=== PATIENT | female | born 1950 | race Caucasian/White ===

== ENCOUNTER 2017-01-29 12:51 | Emergency (ER) | payer OTHER ==
[~2017-01-29 12:51] MED LIST: LEVO88TA2 PO; METO25TA3 PO; SIMV40TA PO; WARF-21 PO; WARF-23 PO
[2017-01-29 12:53] VITALS: BP 188/92; PULSE 89; RESP 15; TEMP 98.2; O2SAT 98
--- NOTE | 2017-01-29 13:24 | PD ---
HPI Chief Complaint: GI Complaint Time Seen by Provider: 13:14 Travel History International Travel<30 days: No Contact w/Intl Traveler<30days: No Traveled to known affect area: No History of Present Illness HPI This patient complains of persistent diarrhea. She's had it for 2 weeks. She denies fever or rectal bleeding. No vomiting or abdominal pain. Severity is moderate. No presyncopal symptoms. No alleviating factors. Denies out of country travel or ill contacts PFSH Past Medical History Cardiac Catheterization: Yes (x2) Cardiovascular Problems: Yes ([place] 2011) High Cholesterol: Yes (controlled with statins) Diabetes: No Hypertension: Yes Myocardial Infarction: Yes (2011) Thyroid Disease: Yes (hypo) Past Surgical History Cardiac Surgery: Yes (varicous vein ) Coronary Artery Bypass Graft: No Other Surgery: Yes (sinus, hemmrroids) Family History Family Myocardial Infarction: Yes Social History Alcohol Use: No Tobacco Use: No Substance Use: No Allergies-Medications (Allergen,Severity, Reaction): Coded Allergies: Acyclovir (Verified Allergy, Unknown, 01/29/17) Sulfa (Verified Allergy, Unknown, 01/29/17) Reported Meds & Prescriptions Reported Meds & Active Scripts Active Reported Warfarin 5 Mg Tab 5 Mg PO SUTUWEFRSA Take 1 tablet (5mg) on Monday,Monday,Monday,Monday and Monday Warfarin 7.5 Mg Tab 7.5 Mg PO MOTH Take 1 tablet (7.5mg) on Monday and Metoprolol Tartrate 25 Mg Tab 25 Mg PO BID Simvastatin 40 Mg Tab 40 Mg PO HS Levothyroxine (Levothyroxine Sodium) 88 Mcg Tab 88 Mcg PO DAILY Review of Systems General / Constitutional: No: Fever Eyes: No: Visual changes HENT: No: Headaches Cardiovascular: No: Chest Pain or Discomfort Respiratory: No: Shortness of Breath Gastrointestinal: Positive: Diarrhea, No: Abdominal Pain Genitourinary: No: Dysuria Musculoskeletal: No: Pain Skin: No Rash Neurologic: No: Weakness Psychiatric: No: Depression Endocrine: No: Polydipsia Hematologic/Lymphatic: No: Easy Bruising Physical Exam Narrative GENERAL: Well-nourished, well-developed patient in no apparent distress. SKIN: Focused skin assessment reveals no rash and nodules. Skin is Warm and dry. HEAD: Atraumatic. Normocephalic. EYES: Pupils equal and round. No scleral icterus. No injection or drainage. ENT: No nasal bleeding or discharge. Mucous membranes pink and moist. NECK: Trachea midline. No JVD. CARDIOVASCULAR: Regular rate and rhythm. No murmur appreciated. RESPIRATORY: No accessory muscle use. Clear to auscultation. Breath sounds equal bilaterally. GASTROINTESTINAL: Abdomen soft, non-tender, nondistended. Hepatic and splenic margins not palpable. MUSCULOSKELETAL: No obvious deformities. No clubbing. No cyanosis. No edema. NEUROLOGICAL: Awake and alert. No obvious cranial nerve deficits. Motor grossly within normal limits. Normal speech. PSYCHIATRIC: Appropriate mood and affect; insight and judgment normal. Data Data Last Documented VS Vital Signs Date Time Temp Pulse Resp B/P Pulse Ox O2 Delivery O2 Flow Rate FiO2 01/29/17 12:53 98.2 89 15 188/92 98 Orders Iv Access Insert/Monitor (01/29/17 13:21) Complete Blood Count With Diff (01/29/17 13:21) Basic Metabolic Panel (Bmp) (01/29/17 13:21) Labs Laboratory Tests Test 01/29/17 13:33 White Blood Count 4.4 TH/MM3 Red Blood Count 4.79 MIL/MM3 Hemoglobin 14.1 GM/DL Hematocrit 42.5 % Mean Corpuscular Volume 88.6 FL Mean Corpuscular Hemoglobin 29.4 PG Mean Corpuscular Hemoglobin 33.2 % Concent Red Cell Distribution Width 14.5 % Platelet Count 207 TH/MM3 Mean Platelet Volume 8.8 FL Neutrophils (%) (Auto) 72.9 % Lymphocytes (%) (Auto) 19.3 % Monocytes (%) (Auto) 7.0 % Eosinophils (%) (Auto) 0.6 % Basophils (%) (Auto) 0.2 % Neutrophils # (Auto) 3.2 TH/MM3 Lymphocytes # (Auto) 0.8 TH/MM3 Monocytes # (Auto) 0.3 TH/MM3 Eosinophils # (Auto) 0.0 TH/MM3 Basophils # (Auto) 0.0 TH/MM3 CBC Comment DIFF FINAL Differential Comment Sodium Level 138 MEQ/L Potassium Level 3.9 MEQ/L Chloride Level 103 MEQ/L Carbon Dioxide Level 29.5 MEQ/L Anion Gap 6 MEQ/L Blood Urea Nitrogen 14 MG/DL Creatinine 0.78 MG/DL Estimat Glomerular Filtration 74 ML/MIN Rate Random Glucose 95 MG/DL Calcium Level 8.8 MG/DL MDM Medical Decision Making Medical Screen Exam Complete: Yes Emergency Medical Condition: Yes Medical Record Reviewed: Yes Differential Diagnosis Colitis, food poisoning, malabsorption Narrative Course I have reviewed the patient's electronic medical record. IV placed CBC is normal Metabolic profile is normal Abdomen is soft and benign and nontender and she looks euvolemic Follow-up with primary care for 2 weeks of diarrhea Diagnosis Primary Impression: Diarrhea Qualified Code: R19.7 - Diarrhea, unspecified type Additional Instructions: The patient was advised to follow up with their physician and return if they worsen. Med/Other Pt SpecificInfo: Other Disposition: 01 DISCHARGE HOME Condition: Stable Antolin Blank MD Jan 29, 2017 13:24
[2017-01-29 13:59] LABS: AUTOMATED NEUTROPHIL # 3.2 TH/MM3 (1.8-7.7); BASOPHIL % 0.2 % (0.0-2.0); EOSINOPHIL % 0.6 % (0.0-4.0); HEMATOCRIT 42.5 % (35.0-46.0); HEMO FLAGS DIFF FINAL; LYMPH % 19.3 % (9.0-44.0); LYMPHOCYTE # 0.8 TH/MM3 (1.0-4.8); MEAN CELL VOLUME 88.6 FL (80.0-100.0); MEAN CORPUSCULAR HEMOGLOBIN 29.4 PG (27.0-34.0); MEAN CORPUSCULAR HGB CONC 33.2 % (32.0-36.0); NEUT % 72.9 % (16.0-70.0); PLATELET COUNT 207 TH/MM3 (150-450); RED BLOOD COUNT 4.79 MIL/MM3 (4.00-5.30); RED CELL DISTRIBUTION WIDTH 14.5 % (11.6-17.2); WHITE BLOOD COUNT 4.4 TH/MM3 (4.0-11.0)
[2017-01-29 14:18] LABS: BICARBONATE 29.5 MEQ/L (21.0-32.0); POTASSIUM 3.9 MEQ/L (3.5-5.1)
[2017-01-29 14:58] VITALS: BP 135/82
== END 2017-01-29 15:05 | disposition home or self-care (01) ==
LOC: NEPD 12:51
DX: R19.7 Diarrhea, unspecified (principal); I10 Essential (primary) hypertension; I25.2 Old myocardial infarction; E03.9 Hypothyroidism, unspecified; E78.00 Pure hypercholesterolemia, unspecified; Z79.01 Long term (current) use of anticoagulants; Z79.899 Other long term (current) drug therapy
CPT/HCPCS: 80048; 85025; 99283

== ENCOUNTER 2017-02-07 11:36 | Inpatient (IN) | payer OTHER, MEDICARE ==
[~2017-02-07] VITALS: Ht 165.1 cm; Wt 67.3 kg
[2017-02-07 11:39] VITALS: BP 158/89; PULSE 104; RESP 16; TEMP 98.3; O2SAT 96
[2017-02-07 13:09] VITALS: RESP 18; O2SAT 98
--- NOTE | 2017-02-07 13:15 | PD ---
HPI Chief Complaint: Abnormal Results Time Seen by Provider: 12:55 Travel History International Travel<30 days: No Contact w/Intl Traveler<30days: No Traveled to known affect area: No History of Present Illness HPI 66-year-old female presents with an abnormal INR level in the sevens. She states that she has been having abdominal pain and diarrhea over the past couple of weeks. She got referred to a GI specialist who placed her on Flagyl. She states she doesn't know why she is on that and denies having anything other testing other than blood work and an x-ray. She states that she's also been having intermittent bleeding in her urine. She denies any specific other complaints. Quality is high. Severity is 7 range. PFSH Past Medical History Hx Anticoagulant Therapy: Yes Cardiac Catheterization: Yes (x2) Cardiovascular Problems: Yes High Cholesterol: Yes (controlled with statins) Diabetes: No Hypertension: Yes Myocardial Infarction: Yes (2011) Thyroid Disease: Yes (hypo) ?: Not Past Surgical History Cardiac Surgery: Yes (varicous vein ) Coronary Artery Bypass Graft: No Other Surgery: Yes (sinus, hemorrhoid) Family History Family Myocardial Infarction: Yes Social History Alcohol Use: No Tobacco Use: No Substance Use: No Allergies-Medications (Allergen,Severity, Reaction): Coded Allergies: Acyclovir (Verified Allergy, Unknown, 01/29/17) Sulfa (Verified Allergy, Unknown, 01/29/17) Reported Meds & Prescriptions Reported Meds & Active Scripts Active Reported Flagyl (Metronidazole) 500 Mg Tab 500 Mg PO TID Warfarin 5 Mg Tab 5 Mg PO SUTUWEFRSA Take 1 tablet (5mg) on Monday,Monday,Monday,Monday and Monday Warfarin 7.5 Mg Tab 7.5 Mg PO MOTH Take 1 tablet (7.5mg) on Monday and Metoprolol Tartrate 25 Mg Tab 25 Mg PO BID Simvastatin 40 Mg Tab 40 Mg PO HS Levothyroxine (Levothyroxine Sodium) 88 Mcg Tab 88 Mcg PO DAILY Review of Systems Except as stated in HPI: all other systems reviewed are Neg Physical Exam Narrative GENERAL: Well-nourished, well-developed patient. SKIN: Warm and dry. HEAD: Normocephalic and atraumatic. EYES: No injection or drainage. ENT: No nasal drainage noted. NECK: Supple, trachea midline. CARDIOVASCULAR: Regular rate and rhythm RESPIRATORY: Breath sounds equal bilaterally. No accessory muscle use. GASTROINTESTINAL: Abdomen soft, diffusely tender, nondistended. EXTREMITIES: No edema. RECTAL EXAM: Performed with finisher polisher and after permission. No external hemorrhoid or fissure, stool is brown, non-bloody. NEUROLOGICAL: Awake and alert. Moves extremities. Normal speech. Data Data Last Documented VS Vital Signs Date Time Temp Pulse Resp B/P Pulse Ox O2 Delivery O2 Flow Rate FiO2 02/07/17 13:09 92 18 97 Room Air 02/07/17 11:39 98.3 158/89 Orders Magnesium (Mg) (02/07/17 13:00) Phosphorus (Po4) (02/07/17 13:00) Complete Blood Count With Diff (02/07/17 13:00) Basic Metabolic Panel (Bmp) (02/07/17 13:00) Act Partial Throm Time (Ptt) (02/07/17 13:00) Prothrombin Time / Inr (Pt) (02/07/17 13:00) Iv Access Insert/Monitor (02/07/17 13:00) Ecg Monitoring (02/07/17 13:00) Oximetry (02/07/17 13:00) Urinalysis - C+S If Indicated (02/07/17 13:07) Ct Abd/Pel W Iv Contrast(Rout) (02/07/17 ) Phytonadione Inj (Vitamin K Inj) (02/07/17 14:30) Iohexol 350 Inj (Omnipaque 350 Inj) (02/07/17 15:35) Admit Order (Ed Use Only) (02/07/17 15:39) Labs Laboratory Tests Test 02/07/17 02/07/17 13:19 13:53 White Blood Count 5.3 TH/MM3 Red Blood Count 4.53 MIL/MM3 Hemoglobin 13.2 GM/DL Hematocrit 40.4 % Mean Corpuscular Volume 89.2 FL Mean Corpuscular Hemoglobin 29.1 PG Mean Corpuscular Hemoglobin 32.6 % Concent Red Cell Distribution Width 14.5 % Platelet Count 209 TH/MM3 Mean Platelet Volume 8.2 FL Neutrophils (%) (Auto) 81.0 % Lymphocytes (%) (Auto) 9.5 % Monocytes (%) (Auto) 8.3 % Eosinophils (%) (Auto) 1.0 % Basophils (%) (Auto) 0.2 % Neutrophils # (Auto) 4.3 TH/MM3 Lymphocytes # (Auto) 0.5 TH/MM3 Monocytes # (Auto) 0.4 TH/MM3 Eosinophils # (Auto) 0.1 TH/MM3 Basophils # (Auto) 0.0 TH/MM3 CBC Comment DIFF FINAL Differential Comment Prothrombin Time 151.8 SEC Prothromb Time International 12.3 RATIO Ratio Activated Partial 92.7 SEC Thromboplast Time Sodium Level 138 MEQ/L Potassium Level 3.9 MEQ/L Chloride Level 101 MEQ/L Carbon Dioxide Level 32.1 MEQ/L Anion Gap 5 MEQ/L Blood Urea Nitrogen 10 MG/DL Creatinine 0.70 MG/DL Estimat Glomerular Filtration 83 ML/MIN Rate Random Glucose 98 MG/DL Calcium Level 8.5 MG/DL Phosphorus Level 2.7 MG/DL Magnesium Level 2.1 MG/DL Urine Color YELLOW Urine Turbidity CLEAR Urine pH 6.0 Urine Specific [place] 1.010 Urine Protein NEG mg/dL Urine Glucose (UA) NEG mg/dL Urine Ketones NEG mg/dL Urine Occult Blood MOD Urine Nitrite NEG Urine Bilirubin NEG Urine Urobilinogen LESS THAN 2.0 MG/DL Urine Leukocyte Esterase MOD Urine RBC 34 /hpf Urine WBC 3 /hpf Urine Squamous Epithelial 1 /hpf Cells Urine Transitional Epithelial <1 /hpf Cells Urine Mucus FEW /lpf Microscopic Urinalysis Comment CULT NOT INDICATED MDM Medical Decision Making Medical Screen Exam Complete: Yes Emergency Medical Condition: Yes Medical Record Reviewed: Yes (past history confirmed) Interpretation(s) CBC & BMP Diagram 02/07/17 13:19 Last 24 hours Impressions Abdomen/Pelvis CT 02/07/17 0000 Signed Impressions: Service Date/Time: Tuesday, February 07, 2017 15:20 - CONCLUSION: 1. There is prominence of the right renal pelvis and possible mild hydronephrosis with prominent soft tissue density at the UPJ, underlying neoplastic process should be excluded. Ureteroscopy recommended. 2. Prominent anterior bladder wall thickening measuring 9 mm. Cystoscopy and biopsy recommended. 3. Urologic consultation recommended. 4. Minimal ascites. 5. Borderline prominence of the left ovary. Pelvic sonogram recommended. Leif Landa MD ua with blood without infection Differential Diagnosis Diverticulitis, anemia, hypercoagulable, hypokalemia, renal failure Narrative Course Will check blood work, urinalysis, CT scan abdominal pelvis and reevaluate, Flagyl is likely contributing to hypercoagulable state. No emergent bleeding now will hold reversal until confirm level and if bleeding found on workup Patient's INR on repeat is 12.3. Patient with blood and urine. Will dose with vitamin K 10 mg subcutaneous and await CT Patient denies prior urology follow-up and recently got diagnosed with the blood in her urine at the beginning of December. She has not had a CAT scan of her abdomen. She did have an ultrasound that showed that her left ovary was okay but they could not visualize her right ovary she states. She has never followed with urologist. She is updated about results and agrees to admission to the hospital. [facility] Point of Care Internal Pos. & Neg. Controls: Passed Fecal Specimen Occult Blood: Negative Physician Communication Physician Communication dr salas agrees to admit dr salas updated about ct and will order urology consult Diagnosis Primary Impression: Supratherapeutic INR Additional Impressions: Diarrhea Qualified Code: R19.7 - Diarrhea, unspecified type Abdominal pain Qualified Code: R10.84 - Generalized abdominal pain Bladder wall thickening Hematuria Qualified Code: R31.9 - Hematuria, unspecified type Admitting Information Admitting Physician Requests: Admit Joya Coats MD Feb 07, 2017 13:15
[2017-02-07 13:43] LABS: AUTOMATED NEUTROPHIL # 4.3 TH/MM3 (1.8-7.7); BASOPHIL % 0.2 % (0.0-2.0); EOSINOPHIL # 0.1 TH/MM3 (0-0.4); HEMATOCRIT 40.4 % (35.0-46.0); LYMPH % 9.5 % (9.0-44.0); LYMPHOCYTE # 0.5 TH/MM3 (1.0-4.8); MEAN CELL VOLUME 89.2 FL (80.0-100.0); MEAN CORPUSCULAR HEMOGLOBIN 29.1 PG (27.0-34.0); MEAN CORPUSCULAR HGB CONC 32.6 % (32.0-36.0); MONO % 8.3 % (0.0-8.0); PLATELET COUNT 209 TH/MM3 (150-450); RED BLOOD COUNT 4.53 MIL/MM3 (4.00-5.30); RED CELL DISTRIBUTION WIDTH 14.5 % (11.6-17.2); WHITE BLOOD COUNT 5.3 TH/MM3 (4.0-11.0)
[2017-02-07 13:44] LABS: HEMO FLAGS DIFF FINAL
[2017-02-07 14:03] LABS: BICARBONATE 32.1 MEQ/L (21.0-32.0); MAGNESIUM 2.1 MG/DL (1.5-2.5); POTASSIUM 3.9 MEQ/L (3.5-5.1)
[2017-02-07 14:19] LABS: PROTHROMBIN TIME - PATIENT 151.8 SEC (9.8-11.6)
[2017-02-07 14:21] LABS: APTT (PATIENT) 92.7 SEC (24.3-30.1)
[2017-02-07 14:21] LABS: BLOOD, URINE MOD (NEG); COMMENT (UR) CULT NOT INDICATED; CULTURE IF INDICATED CULT NOT INDICATED; GLUCOSE,URINE NEG (NEG); KETONE, URINE NEG (NEG); MUCUS URINE FEW /lpf (OCC); NITRITE,URINE NEG (NEG); SQUAMOUS EPITHELIAL CELL URINE 1 /hpf (0-5); TRANSITIONAL EPI CELLS, URINE <1 /hpf; URINE COLOR YELLOW (YELLW/STRAW)
[2017-02-07 14:22] LABS: INTERNATIONAL NORMALIZED RATIO 12.3 RATIO
[2017-02-07] MEDS ORDERED: PHYTONADIONE 10 MG/ML VIAL SQ ONE (14:30)
[2017-02-07] MEDS ORDERED: METR-1 PO (14:47)
[2017-02-07] MEDS ORDERED: IOHEXOL 350 MG/ML 10 ML VIAL (for RAD DIAG) IV ONE (15:35)
--- NOTE | 2017-02-07 15:42 | RADRPT ---
EXAM DATE/TIME: 02/07/2017 15:20 [facility] COMPARISON: No previous studies available for comparison. INDICATIONS : Diffuse abdomen pain for two days. IV CONTRAST: 87 cc Omnipaque 350 (iohexol) IV ORAL CONTRAST: Prescribed oral contrast ingested. RADIATION DOSE: 9.96 CTDIvol (mGy) MEDICAL HISTORY : Cardiovascular disease. Myocardial infarction. SURGICAL HISTORY : Coronary artery stent. ENCOUNTER: Initial ACUITY: 2 days PAIN SCALE: 6/10 LOCATION: Bilateral upper quadrant TECHNIQUE: Volumetric scanning of the abdomen and pelvis was performed. Using automated exposure control and ad justment of the mA and/or kV according to patient size, radiation dose was kept as low as reasonably achievable to obtain optimal diagnostic quality images. DICOM format image data is available electro nically for review and comparison. FINDINGS: LOWER LUNGS: The visualized lower lungs are clear. LIVER: Homogeneous density without lesion. There is no dilation of the biliary tree. There are calcified g allstones. Small amount of ascites. SPLEEN: Normal size without lesion. PANCREAS: Within normal limits. KIDNEYS: Normal in size and shape. There is no mass, stone or hydronephrosis on the left. There is prominent right renal pelvis and some minimal soft tissue at the UPJ. ADRENAL GLANDS: Within normal limits. VASCULAR: There is no aortic aneurysm. BOWEL/MESENTERY: The stomach, small bowel, and colon demonstrate no acute abnormality. There is no free intraperitone al air or fluid. ABDOMINAL WALL: Within normal limits. RETROPERITONEUM: There is no lymphadenopathy. BLADDER: Wall thickening along the anterior bladder measuring up to 9 mm.. REPRODUCTIVE: Left ovary borderline prominent measuring up to 3 cm.. INGUINAL: There is no lymphadenopathy or hernia. MUSCULOSKELETAL: Degenerative changes. CONCLUSION: 1. There is prominence of the right renal pelvis and possible mild hydronephrosis with prominent soft tissue density at the UPJ, underlying neoplastic process should be excluded. Ureteroscopy recommende d. 2. Prominent anterior bladder wall thickening measuring 9 mm. Cystoscopy and biopsy recommended. 3. Urologic consultation recommended. 4. Minimal ascites. 5. Borderline prominence of the left ovary. Pelvic sonogram recommended. Leif Landa MD on February 07, 2017 at 15:36 Board Certified Radiologist. This report was verified electronically.
[2017-02-07 16:40] VITALS: BP 129/83; PULSE 78; RESP 18; O2SAT 96
[2017-02-07] MEDS ORDERED: ACETAMINOPHEN 325 MG TAB PO PRN (17:00)
[2017-02-07] MEDS ORDERED: BISACODYL 10 MG SUPP RECTAL PRN (17:00)
[2017-02-07] MEDS ORDERED: SODIUM CHLORIDE 0.9% FLUSH 10 ML FLUSH IV FLUSH PRN (17:00)
[2017-02-07] MEDS ORDERED: LACTULOSE SYRUP 20 GM/30 ML CUP PO PRN (17:00)
[2017-02-07] MEDS ORDERED: SENNOSIDES 8.6 MG TAB PO PRN (17:00)
[2017-02-07] MEDS ORDERED: NALOXONE HCL 0.4 MG/ML AMP IV PRN (17:00)
[2017-02-07] MEDS ORDERED: MAGNESIUM HYDROXIDE SUSP 30 ML CUP PO PRN (17:00)
--- NOTE | 2017-02-07 17:21 | HHI.HP ---
HPI Service [facility] Hospitalists Primary Care Physician Moiz Pyle MD Admission Diagnosis supratherapeutic INR, abdominal pain Diagnoses: Chief Complaint: Supratherapeutic INR Abdominal pain Diarrhea Travel History International Travel<30 Days: No Contact w/Intl Traveler <30 Da: No Traveled to Known Affected Are: No History of Present Illness This is a 66-year-old female with a past medical history significant for coronary artery disease status post previous KS in 2011 with attempted but unsuccessful stent placement currently on Coumadin, hypertension, dyslipidemia and hypothyroidism who presents to [facility] ED after being told to come in by her PCP for supratherapeutic INR of 7. Patient also reports 3 week history of abdominal pain and ongoing diarrhea consisting of 10-15+ pudding consistency stools daily. Patient describes her abdominal pain as sharp and located in both lower quadrants and worsened with lying supine so she has taken to sleeping in the recliner. She denies any dark/bloody or mucoid stools. Patient states she was seen by GI specialist 7 days ago and started on Flagyl empirically for possible C. difficile infection and/or Giardia. She denies any stool testing or imaging studies done. Patient denies any improvement while on Flagyl. Her last colonoscopy was in March of last year and she had a small polypectomy. Patient reports that when she is up moving around she has frequent episodes of diarrhea every 15 minutes and has begun wearing a brief. She completed a course of nitrofurantoin yesterday for urinary tract infection. She denies any urinary difficulties, dysuria or hematuria presently. She denies any bleeding episodes. Patient reports poor appetite and states that she 's lost 8 pounds over the past week. She denies any fever, chills, dizziness, headache, shortness of breath or chest pain. In the ED, CT of abdomen and pelvis was obtained showing prominence of the right renal pelvis and possible mild hydronephrosis with prominent soft tissue density at the UPJ with possible underlying neoplastic process. Prominent anterior bladder wall thickening of 9 mm and borderline prominence of the left ovary. She has a supratherapeutic INR of 12.3. Review of Systems Except as stated in HPI: all other systems reviewed are Neg Past Family Social History Past Medical History Coronary artery disease History of previous KS in 2012 Hypertension Dyslipidemia Hypothyroidism Past Surgical History Varicose vein surgery Hemorrhoid surgery Sinus surgery Reported Medications Flagyl (Metronidazole) 500 Mg Tab 500 Mg PO TID Warfarin 5 Mg Tab 5 Mg PO SUTUWEFRSA Take 1 tablet (5mg) on Monday,Monday,Monday,Monday and Monday Warfarin 7.5 Mg Tab 7.5 Mg PO MOTH Take 1 tablet (7.5mg) on Monday and Metoprolol Tartrate 25 Mg Tab 25 Mg PO BID Simvastatin 40 Mg Tab 40 Mg PO HS Levothyroxine (Levothyroxine Sodium) 88 Mcg Tab 88 Mcg PO DAILY Allergies: Coded Allergies: Acyclovir (Verified Allergy, Unknown, 01/29/17) Sulfa (Verified Allergy, Unknown, 01/29/17) Active Ordered Medications Current Medications Medications (Trade) Dose Ordered Sig/Trina Route Start Time Stop Time Status Last Admin (NS Flush) 2 ml UNSCH PRN IV FLUSH 02/07/17 17:00 UNV (NS Flush) 2 ml BID IV FLUSH 02/07/17 21:00 UNV (Tylenol) 650 mg Q4H PRN PO 02/07/17 17:00 UNV (Zofran Inj) 4 mg Q6H PRN IVP 02/07/17 17:00 UNV (Narcan Inj) 0.4 mg UNSCH PRN IV 02/07/17 17:00 UNV (Milk Of Magnesia Liq) 30 ml Q12H PRN PO 02/07/17 17:00 UNV (Senokot) 17.2 mg Q12H PRN PO 02/07/17 17:00 UNV (Dulcolax Supp) 10 mg DAILY PRN RECTAL 02/07/17 17:00 UNV (Lactulose Liq) 30 ml DAILY PRN PO 02/07/17 17:00 UNV Family History Mother, coronary artery disease status post open heart surgery 2 Father, lung cancer Social History Patient has a history of tobacco use from the age of 8 until she was 39 smoking 20 cigarettes a day. Patient denies any alcohol consumption. Patient denies any illicit drug use. Patient is and lives alone. Physical Exam Vital Signs Vital Signs Date Time Temp Pulse Resp B/P Pulse Ox O2 Delivery O2 Flow Rate FiO2 02/07/17 13:09 92 18 97 Room Air 02/07/17 13:09 18 98 Room Air 02/07/17 11:39 98.3 104 16 158/89 96 Room Air Physical Exam GENERAL: This is a well-nourished, well-developed patient, in no apparent distress. Awake and alert. Appears comfortable at present. SKIN: No rashes, ecchymoses or lesions. Cool and dry. HEAD: Atraumatic. Normocephalic. No temporal or scalp tenderness. EYES: Pupils equal round and reactive. Extraocular motions intact. No scleral icterus. No injection or drainage. ENT: Nose without bleeding or purulent drainage. Throat without erythema, tonsillar hypertrophy or exudate. Uvula midline. Airway patent. NECK: Trachea midline. No JVD or lymphadenopathy. Supple, nontender, no meningeal signs. CARDIOVASCULAR: Tachycardic without murmurs, gallops, or rubs. RESPIRATORY: Clear to auscultation. Breath sounds equal bilaterally. No wheezes , rales, or rhonchi. GASTROINTESTINAL: Abdomen soft, mildly distended. Diffusely tender to palpation with stethoscope. (+)BS. No hepato-splenomegaly, or palpable masses. (+) Voluntary guarding. MUSCULOSKELETAL: Extremities without clubbing, cyanosis, or edema. No joint tenderness, effusion, or edema noted. No calf tenderness. NEUROLOGICAL: Awake and alert. Able to move all extremities. No focal neurologic findings appreciated. Normal speech. Laboratory Laboratory Tests Test 02/07/17 02/07/17 13:19 13:53 White Blood Count 5.3 Red Blood Count 4.53 Hemoglobin 13.2 Hematocrit 40.4 Mean Corpuscular Volume 89.2 Mean Corpuscular Hemoglobin 29.1 Mean Corpuscular Hemoglobin 32.6 Concent Red Cell Distribution Width 14.5 Platelet Count 209 Mean Platelet Volume 8.2 Neutrophils (%) (Auto) 81.0 Lymphocytes (%) (Auto) 9.5 Monocytes (%) (Auto) 8.3 Eosinophils (%) (Auto) 1.0 Basophils (%) (Auto) 0.2 Neutrophils # (Auto) 4.3 Lymphocytes # (Auto) 0.5 Monocytes # (Auto) 0.4 Eosinophils # (Auto) 0.1 Basophils # (Auto) 0.0 CBC Comment DIFF FINAL Differential Comment Prothrombin Time 151.8 Prothromb Time International 12.3 Ratio Activated Partial 92.7 Thromboplast Time Sodium Level 138 Potassium Level 3.9 Chloride Level 101 Carbon Dioxide Level 32.1 Anion Gap 5 Blood Urea Nitrogen 10 Creatinine 0.70 Estimat Glomerular Filtration 83 Rate Random Glucose 98 Calcium Level 8.5 Phosphorus Level 2.7 Magnesium Level 2.1 Urine Color YELLOW Urine Turbidity CLEAR Urine pH 6.0 Urine Specific [place] 1.010 Urine Protein NEG Urine Glucose (UA) NEG Urine Ketones NEG Urine Occult Blood MOD Urine Nitrite NEG Urine Bilirubin NEG Urine Urobilinogen LESS THAN 2.0 Urine Leukocyte Esterase MOD Urine RBC 34 Urine WBC 3 Urine Squamous Epithelial 1 Cells Urine Transitional Epithelial <1 Cells Urine Mucus FEW Microscopic Urinalysis Comment CULT NOT INDICATED Result Diagram: 02/07/17 1319 02/07/17 1319 Imaging Last Impressions Abdomen/Pelvis CT 02/07/17 0000 Signed Impressions: Service Date/Time: Tuesday, February 07, 2017 15:20 - CONCLUSION: 1. There is prominence of the right renal pelvis and possible mild hydronephrosis with prominent soft tissue density at the UPJ, underlying neoplastic process should be excluded. Ureteroscopy recommended. 2. Prominent anterior bladder wall thickening measuring 9 mm. Cystoscopy and biopsy recommended. 3. Urologic consultation recommended. 4. Minimal ascites. 5. Borderline prominence of the left ovary. Pelvic sonogram recommended. Leif Landa MD Assessment and Plan Assessment and Plan 66-year-old female with a past medical history significant for coronary artery disease status post previous KS in 2011 with attempted but unsuccessful stent placement currently on Coumadin, hypertension, dyslipidemia and hypothyroidism who presents to [facility] ED after being told to come in by her PCP for supratherapeutic INR of 7. Patient also reports 3 week history of abdominal pain and ongoing diarrhea consisting of 10-15+ pudding consistency stools daily. Abdominal pain, bilateral lower quadrants Chronic Diarrhea/fecal incontinence Wt loss Treated empirically for the past 7 days with Flagyl without benefit - CT abd/pelvis, images personally reviewed showing prominence of the right renal pelvis and possible mild hydronephrosis with prominent soft tissue density at the UPJ, underlying neoplastic process should be excluded. Prominent anterior bladder wall thickening measuring 9 mm. Borderline prominent left ovary. - Consult GI - Hold Flagyl - Stool studies ordered - C diff ordered - Clear liquid diet - NPO after MN pending possibility of scope procedure. - pain management - Zofran prn N/V Mild hydronephrosis with prominent soft tissue density at the UPJ Prominent bladder thickening - Creatinine 0.70 GFR 83. UA with mod blood, mod leukocytes and 34 RBCs - obtain UCX - Consult urology - Renal ultrasound ordered for further evaluation - Monitor BMP Borderline prominence left ovary - Complaints of left lower quadrant pain - Pelvic ultrasound for further evaluation Supratherapeutic INR, suspect s/t Flagyl use - INR 12.3 - Patient given vitamin K in the ED - Hold warfarin - Monitor INR. A.m. labs ordered - Bedrest. Advised patient to not get out of bed without assistance. Discussed risk of bleeding with unintentional fall. Patient stated understanding. Coronary artery disease Previous KS in 2011 with attempted but unsuccessful stent placement Hypertension Dyslipidemia - Resume home metoprolol 25 mg by mouth twice a day - Hold warfarin due to supratherapeutic INR - Resume statin therapy - Clonidine prn with parameters - Monitor Hypothyroidism - Resume home levothyroxine dose 88 MCG daily - obtain TSH level DVT prophylaxis - Chemoprophylaxis contraindicated due to supratherapeutic INR Discussed with patient and Dr. Solo Physician Certification 2 Midnight Certification Type: Admission for Inpatient Services Order for Inpatient Services The services are ordered in accordance with Medicare regulations or non- Medicare payer requirements, as applicable. In the case of services not specified as inpatient-only, they are appropriately provided as inpatient services in accordance with the 2-midnight benchmark. Estimated LOS (days): 2 2 days is the estimated time the patient will need to remain in the hospital, assuming treatment plan goals are met and no additional complications. Post-Hospital Plan: Home Notes: The exam, history, and the medical decision-making described in the above note were completed with the assistance of the mid-level provider. I reviewed and agree with the findings presented. I attest that I had a [id number] encounter with the patient on the same day, and personally performed and documented my assessment and findings in the medical record. Patient complaining about abdominal pain and diarrhea for the past 3 weeks. She stated that she saw GI about a week ago and she was put on Flagyl. Patient was found to have an elevated INR. She denies any bleeding episodes. Patient stated that Flagyl did not help her at all. gen NAD CV RRR. n r/m/g Abd soft diffused TTP. No peritoneal signs. No hepatomegaly. Normal active bowel sounds. Respiratory clear to station bilaterally A/P Chronic diarrhea Supratherapeutic INR 12.3. Most likely secondary to Flagyl use. CT scan of the abdomen/pelvis reviewed. Concerning for possible bladder malignancy. Also showing mild hydronephrosis. Patient already received a dose of vitamin K. Repeat INR. Patient told that if she gets up she gets up she needs to get up with assistance due to increase risk of bleeding with fall. Will need to avoid any type of trauma falls due to increased risk of bleeding. Patient stated that she understands. Will get a renal and pelvic ultrasound. Consult GI and urologist. Sandra Castro Feb 07, 2017 17:21 Lena Solo MD Feb 07, 2017 18:23
[2017-02-07] MEDS ORDERED: SODIUM CHLORID 0.9% 500 ML INJ 500 ML IV SCH (18:15)
[2017-02-07] MEDS ORDERED: cloNIDine HCL 0.1 MG TAB PO PRN (18:15)
--- NOTE | 2017-02-07 18:58 | RADRPT ---
EXAM DATE/TIME: 02/07/2017 18:00 [facility] COMPARISON: CT ABDOMEN & PELVIS W CONTRAST, February 07, 2017, 15:20. INDICATIONS : Hydronephrosis. MEDICAL HISTORY : Cardiovascular disease. Myocardial infarction. SURGICAL HISTORY : Coronary artery stent. ENCOUNTER: Initial ACUITY: 2 days PAIN SCORE: 3/10 LOCATION: Bilateral flank MEASUREMENTS: RIGHT KIDNEY: 11.3 x 5.0 x 5.2 cm LEFT KIDNEY: 11.7 x 4.2 x 6.0 cm FINDINGS: There is a dilated renal pelvis measuring 2.9 x 3.3 x 3.1 cm. The soft tissue noted on the CT at the UPJ is not clearly seen on ultrasound. The bladder is not well-distended. Visualized portions appear within normal limits however the findings on the CT are concerning for possible mass. Left kidney is unremarkable. CONCLUSION: Dilated right renal pelvis. The UPJ soft tissue lesion and bladder abnormality noted on the CT examin ation is not clearly evaluated on ultrasound. This would be best assessed with cystoscopy and uretero scopy. Rafita Schilling MD on February 07, 2017 at 18:54 Board Certified Radiologist. This report was verified electronically.
--- NOTE | 2017-02-07 19:13 | RADRPT ---
EXAM DATE/TIME: 02/07/2017 18:09 [facility] COMPARISON: CT ABDOMEN & PELVIS W CONTRAST, February 07, 2017, 15:20. INDICATIONS : Pain. MEDICAL HISTORY : Hypothyroidism. Hypertension. Heart attack. SURGICAL HISTORY : Cardiac catheterization. ENCOUNTER: Initial ACUITY: 2 days PAIN SCORE: 3/10 LOCATION: Bilateral pelvis MEASUREMENTS: UTERUS: 6.1 x 5.2 x 3.3 cm ENDOMETRIAL STRIPE: 4 mm LEFT OVARY: 3.8 x 3.2 x 2.2 cm FINDINGS: UTERUS: The myometrium has homogeneous echotexture without mass. RIGHT OVARY: Not visualized. LEFT OVARY: Simple cyst measuring 1.8 x 1.8 cm x 2.8 cm. MISCELLANEOUS: Trace free fluid. CONCLUSION: 1. Cyst left ovary. 2. Right ovary not seen. 3. Small amount of free fluid in the pelvis. Rafita Schilling MD on February 07, 2017 at 19:10 Board Certified Radiologist. This report was verified electronically.
[2017-02-07 19:15] LABS: INDIRECT BILIRUBIN 0.2 MG/DL (0.0-0.8); TOTAL BILIRUBIN ADULT 0.3 MG/DL (0.2-1.0)
[2017-02-07 20:30] VITALS: BP 152/83; PULSE 88; RESP 20; O2SAT 96
[2017-02-07] MEDS: PRAVASTATIN SOD 80 MG TAB PO SCH (20:33)
[2017-02-07] MEDS: METOPROLOL TARTRATE 25 MG TAB PO SCH (20:33)
[2017-02-07 21:45] VITALS: BP 150/86; PULSE 89; RESP 16; TEMP 97.1; O2SAT 95
[2017-02-07] MEDS: SODIUM CHLORIDE 0.9% FLUSH 10 ML FLUSH IV FLUSH SCH (22:25)
[2017-02-07 23:09] LABS: C. DIFF EPI 027 PRESUMPTIVE NEGATIVE (NEGATIVE); C. DIFF TOXIN PCR NEGATIVE (NEGATIVE)
[2017-02-08] VITALS: BP 127/75; PULSE 86; RESP 16; TEMP 98.2; O2SAT 95
[2017-02-08 04:00] VITALS: BP 128/73; PULSE 82; RESP 16; TEMP 97; O2SAT 94
[2017-02-08] MEDS: LEVOTHYROXINE SODIUM 88 MCG TAB PO SCH (05:10)
[2017-02-08 07:38] LABS: AUTOMATED NEUTROPHIL # 3.3 TH/MM3 (1.8-7.7); BASOPHIL % 0.3 % (0.0-2.0); EOSINOPHIL # 0.1 TH/MM3 (0-0.4); EOSINOPHIL % 1.5 % (0.0-4.0); HEMO FLAGS DIFF FINAL; LYMPH % 13.9 % (9.0-44.0); LYMPHOCYTE # 0.6 TH/MM3 (1.0-4.8); MEAN CELL VOLUME 88.2 FL (80.0-100.0); MEAN CORPUSCULAR HEMOGLOBIN 29.7 PG (27.0-34.0); MEAN CORPUSCULAR HGB CONC 33.6 % (32.0-36.0); MONO % 10.5 % (0.0-8.0); NEUT % 73.8 % (16.0-70.0); PLATELET COUNT 197 TH/MM3 (150-450); RED CELL DISTRIBUTION WIDTH 14.8 % (11.6-17.2); WHITE BLOOD COUNT 4.5 TH/MM3 (4.0-11.0)
[2017-02-08 07:39] LABS: INTERNATIONAL NORMALIZED RATIO 3.5 RATIO; PROTHROMBIN TIME - PATIENT 41.2 SEC (9.8-11.6)
[2017-02-08 07:50] VITALS: BP 121/69; PULSE 82; RESP 20; TEMP 96.8; O2SAT 94
[2017-02-08 08:02] LABS: ALT (GPT) 152 U/L (10-53); ANION GAP 9 MEQ/L (5-15); AST (GOT) 118 U/L (15-37); BICARBONATE 28.2 MEQ/L (21.0-32.0); BLOOD UREA NITROGEN 8 MG/DL (7-18); CHLORIDE 104 MEQ/L (98-107); GLOMERULAR FILTRATION RATE 110 ML/MIN (>89); POTASSIUM 3.6 MEQ/L (3.5-5.1); SODIUM (NA) 141 MEQ/L (136-145)
[2017-02-08 08:04] LABS: ALKALINE PHOSPHATASE 145 U/L (45-117); TOTAL BILIRUBIN ADULT 0.4 MG/DL (0.2-1.0)
[2017-02-08] MEDS: SODIUM CHLORIDE 0.9% FLUSH 10 ML FLUSH IV FLUSH SCH ×2 (09:00→20:34)
--- NOTE | 2017-02-08 09:45 | HHI.PR ---
Subjective Remarks Patient reports persistent abdominal pain on the left lower quadrant. Denies nausea or vomiting. Feels her appetite has returned. No bowel movement or diarrhea today. Objective Vitals Vital Signs Date Time Temp Pulse Resp B/P Pulse Ox O2 Delivery O2 Flow Rate FiO2 02/08/17 07:50 96.8 82 20 121/69 94 02/08/17 04:00 97.0 82 16 128/73 94 02/08/17 00:00 98.2 86 16 127/75 95 02/07/17 21:45 97.1 89 16 150/86 95 02/07/17 20:30 88 20 152/83 96 Room Air 02/07/17 16:40 78 18 129/83 96 Room Air 02/07/17 13:09 92 18 97 Room Air 02/07/17 13:09 18 98 Room Air 02/07/17 11:39 98.3 104 16 158/89 96 Room Air I/O 02/07/17 02/07/17 02/07/17 02/08/17 02/08/17 02/08/17 06:59 14:59 22:59 06:59 14:59 22:59 Intake Total 360 ml 0 ml Output Total 300 ml 450 ml Balance 60 ml -450 ml Intake Oral 360 ml 0 ml Output Urine Total 300 ml 450 ml # Bowel Movements 2 1 Result Diagram: 02/08/17 0634 02/08/17 0636 Imaging Last Impressions Renal Ultrasound 02/07/17 0000 Signed Impressions: Service Date/Time: Tuesday, February 07, 2017 18:00 - CONCLUSION: Dilated right renal pelvis. The UPJ soft tissue lesion and bladder abnormality noted on the CT examination is not clearly evaluated on ultrasound. This would be best assessed with cystoscopy and ureteroscopy. Rafita Schilling MD Abdomen/Pelvis/Transvag US 02/07/17 0000 Signed Impressions: Service Date/Time: Tuesday, February 07, 2017 18:09 - CONCLUSION: 1. Cyst left ovary. 2. Right ovary not seen. 3. Small amount of free fluid in the pelvis. Rafita Schilling MD Abdomen/Pelvis CT 02/07/17 0000 Signed Impressions: Service Date/Time: Tuesday, February 07, 2017 15:20 - CONCLUSION: 1. There is prominence of the right renal pelvis and possible mild hydronephrosis with prominent soft tissue density at the UPJ, underlying neoplastic process should be excluded. Ureteroscopy recommended. 2. Prominent anterior bladder wall thickening measuring 9 mm. Cystoscopy and biopsy recommended. 3. Urologic consultation recommended. 4. Minimal ascites. 5. Borderline prominence of the left ovary. Pelvic sonogram recommended. Leif Landa MD Objective Remarks GENERAL: This is a well-nourished, well-developed patient, in no apparent distress. CARDIOVASCULAR: Normal rate and regular rhythm without murmurs, gallops, or rubs. RESPIRATORY: Good respiratory efforts. Breath sounds equal and clear to auscultation bilaterally. GASTROINTESTINAL: Abdomen soft, nondistended, tender to palpation over the left lower quadrant. Normal active bowel sounds MUSCULOSKELETAL: Extremities without cyanosis, or edema. NEURO: Alert & Oriented x4 to person, place, time, situation. Moves all ext x4 PSYCH: Appropriate mood and affect. A/P Problem List: (1) Diarrhea ICD Code: R19.7 Status: Acute (2) Bladder wall thickening ICD Code: N32.89 Status: Acute (3) Abdominal pain ICD Code: R10.9 Status: Acute (4) Supratherapeutic INR ICD Code: R79.1 Status: Acute (5) Hematuria ICD Code: R31.9 Status: Acute (6) Paroxysmal a-fib ICD Code: I48.0 Status: Acute (7) Hypertension ICD Code: I10 Status: Acute Assessment and Plan 66-year-old female with a past medical history significant for coronary artery disease status post previous [place] in 2011 with attempted but unsuccessful stent placement currently on Coumadin, hypertension, dyslipidemia and hypothyroidism who presents to [facility] ED after being told to come in by her PCP for supratherapeutic INR of 7. Patient also reports 3 week history of abdominal pain and ongoing diarrhea consisting of 10-15+ pudding consistency stools daily. Abdominal pain, bilateral lower quadrants Chronic Diarrhea/fecal incontinence Wt loss The patient was treated empirically with Flagyl for the past 7 days without improvement of her symptoms. - CT abd/pelvis, images personally reviewed showing prominence of the right renal pelvis and possible mild hydronephrosis with prominent soft tissue density at the UPJ, underlying neoplastic process should be excluded. Prominent anterior bladder wall thickening measuring 9 mm. Borderline prominent left ovary. -GI consulted. -Flagyl discontinued at this time. C. difficile negative. - Clear liquid diet - pain management - Zofran prn N/V Supratherapeutic INR, likely secondary to Flagyl. - INR 12.3 on presentation. Status post vitamin K. INR down to 3.5. Continue to hold Coumadin. Monitor INR. Mild hydronephrosis with prominent soft tissue density at the UPJ Prominent bladder thickening - Creatinine 0.70 GFR 83. UA with mod blood, mod leukocytes and 34 RBCs -Appreciate urology consult, patient will eventually need cystoscopy and ureteroscopy once the acute issues are resolved. This can potentially be done outpatient. - Monitor BMP Borderline prominence left ovary - Complaints of left lower quadrant pain - Pelvic ultrasound revealed a left ovarian cyst. Coronary artery disease Previous HI in 2011 with attempted but unsuccessful stent placement Hypertension Dyslipidemia - Resume home metoprolol 25 mg by mouth twice a day - Hold warfarin due to supratherapeutic INR - Resume statin therapy - Clonidine prn with parameters - Monitor Hypothyroidism - Resume home levothyroxine dose 88 MCG daily - TSH level ok DVT prophylaxis - Chemoprophylaxis contraindicated due to supratherapeutic INR Problem Qualifiers (1) Diarrhea: Qualified Code: R19.7 - Diarrhea, unspecified type (2) Abdominal pain: Qualified Code: R10.84 - Generalized abdominal pain (3) Hematuria: Qualified Code: R31.9 - Hematuria, unspecified type Charmaine Palacios MD Feb 08, 2017 09:45
[2017-02-08] MEDS: METOPROLOL TARTRATE 25 MG TAB PO SCH ×2 (10:45→20:32)
[2017-02-08 11:43] VITALS: BP 117/70; PULSE 83; RESP 20; TEMP 96.9; O2SAT 94
--- NOTE | 2017-02-08 13:39 | MB ---
cc: VERA BROWN DATE OF CONSULTATION: 02/08/2017 HISTORY OF PRESENT ILLNESS Ms. Montanez is a pleasant 66-year-old female who presents with diffuse abdominal pain and diarrhea over the last 3 weeks. She underwent a CT scan which showed some moderate right hydronephrosis with possible filling defect in the proximal ureter with bladder wall thickening. She denies any gross hematuria or recent urinary tract infections or problems with voiding. She did say that her bladder has dropped but is not having any symptomatology. She denies any right flank pain or fever or chills, nausea or vomiting. She also came in because her INR was super therapeutic at 12.3. She does take Coumadin due to her history of atrial fibrillation and had an WA approximately 10 years ago. PAST MEDICAL HISTORY 1. Coronary artery disease. 2. Hypothyroidism. 3. Hyperlipidemia. 4. Hypertension. 5. History of an WA back in 2011. PAST SURGICAL HISTORY 1. Hemorrhoid surgery. 2. Varicose vein surgery. 3. Sinus surgery. MEDICATIONS For medications please refer to the chart. ALLERGIES 1. ACYCLOVIR. 2. SULFA. FAMILY HISTORY Notable for heart disease and lung cancer. SOCIAL HISTORY She has a long history of smoking in the past. She denies any alcohol use or drug use. REVIEW OF SYSTEMS A 12-point review of systems was performed and is negative per the HPI. PHYSICAL EXAMINATION VITAL SIGNS: Temperature 96.9, heart rate 83, respiratory rate 20, blood pressure 117/70. 94% on room air. GENERAL: She is well-developed, well-nourished 66-year-old female in no acute distress. HEENT: Normocephalic, atraumatic. Pupils equal round and react to light. Extraocular movements intact. NECK: Supple. HEART: Regular rate and rhythm. LUNGS: Clear. ABDOMEN: Soft, nontender, nondistended. EXTREMITIES: No cyanosis, clubbing or edema. LABORATORY White count 4.5 hemoglobins 12.5, hematocrit 37.0, platelet count 197. Sodium 141, potassium 3.6, chloride 104, CO2 28.2, BUN 9, creatinine 0.5, glucose 87. PT 151.8, INR 12.3, PTT 92.7. Urinalysis shows 34 red cells with 3 white cells, nitrite negative, moderate leukocyte esterase. IMAGING CT scan of the abdomen and pelvis: Prominence of the right renal pelvis and possible mild right hydronephrosis with questionable soft tissue density at the area of the UPJ. Prominent anterior bladder wall thickening is also noted. ASSESSMENT A 66-year-old female admitted with abdominal pain with three weeks of diarrhea and super therapeutic on Coumadin with an INR of 12. Findings of small soft tissue density at the area of the UPJ and bladder wall thickening noted on CT scan. RECOMMENDATIONS The patient will need cystoscopy and ureteroscopy in the future but would recommend treatment and diagnosis of abdominal pain and cause of diarrhea as well as correction of INR prior to proceeding with these procedures. These procedures may also be done on an outpatient basis until her acute problem has resolved. Will follow with you. Thank you for the consult and allowing me to participate in the care of this patient. Vera RODRIGUEZ/BT /1:21 PM /1:31 PM
[2017-02-08 15:30] VITALS: BP 138/72; PULSE 81; RESP 20; TEMP 96.2; O2SAT 95
[2017-02-08] MEDS: D5-1/2 NS + KCL 10 MEQ INJ 1,000 ML IV SCH (16:00)
--- NOTE | 2017-02-08 18:25 | PD.CONS ---
GI Consult GI Consult SEE DICTATED GI CONSULT ALSO ([id number]) ASSESSMENT/PLAN: 1. Diarrhea 2. elevated LFT 3. Abd pain PLAN: 1. Chronic liver W/U (labs) 2. bowel rest 3. Questran 4, Colon/Flex sig once INR/PT improved It was a pleasure seeing Xochilt Montanez . Thank you for this consult. Entered by: Sandeep Burrell MD Feb 08, 2017 18:25
[2017-02-08 20:00] VITALS: BP 119/66; PULSE 84; RESP 17; TEMP 96.2; O2SAT 95
[2017-02-08] MEDS: CHOLESTYRAMINE 4 GM PACKET PO SCH (20:31)
[2017-02-08] MEDS: PRAVASTATIN SOD 80 MG TAB PO SCH (20:32)
[2017-02-09] VITALS: BP 132/71; PULSE 78; RESP 18; TEMP 96.1; O2SAT 94
[2017-02-09] MEDS: D5-1/2 NS + KCL 10 MEQ INJ 1,000 ML IV SCH ×2 (02:00→04:55)
[2017-02-09 04:00] VITALS: BP 143/73; PULSE 75; RESP 17; TEMP 96.6; O2SAT 96
[2017-02-09] MEDS: LEVOTHYROXINE SODIUM 88 MCG TAB PO SCH (04:55)
--- NOTE | 2017-02-09 06:28 | MB ---
cc: INNA BENJAMIN MD, SUNIL P. M.D. DATE OF CONSULTATION 02/08/2017 DATE OF 1950 REASON FOR CONSULTATION I have been asked to see the patient at the request of Dr. Benjamin for evaluation of diarrhea and abdominal pain. HISTORY The patient is a pleasant 66-year-old white female who has been followed by Dr. Rose as well as Dr. Martinez in our office. The patient has had a colonoscopy done for screening purposes in on March 2016 and was unremarkable except for diminutive hyperplastic descending colon polyp. The patient was seen by my partner, Dr. Martinez, on January 31 of this year for diarrhea - she has had up to 20 bowel movements per day. At that time she denies any antibiotic use, travel history or family history of colon cancer, colon polyps or IBD. She is on no new medication. He placed her on Flagyl and he asked to make sure her prothrombin time and INR are monitored very carefully. Apparently her INR and prothrombin time were quite supratherapeutic and she was told to go to the emergency room. In the emergency room she had diffuse abdominal colicky pain which has no rhyme or reason. The pain is now more settled in the left lower quadrant. She also continues to have multiple loose and watery bowel movement with mucus but no blood. I have been asked to evaluate this in more detail. The patient denies any type of blood per rectum or any fever or chills. There has been no dysphagia and no nausea or vomiting. PAST MEDICAL HISTORY 1. History of hyperplastic colon polyps. 2. She has had atrial fibrillation for which she takes the Coumadin. 3. She had TX in the past. 4. She has dyslipidemia. 5. Hypothyroidism. 6. Hypertension. She has recent CAT scan which showed problems in the right renal pelvis and possible mild right hydronephrosis and a questionable soft tissue density in the area of the UPJ. PAST SURGICAL HISTORY 1. Varicose vein surgeries. 2. Sinus surgery. 3. Hemorrhoid surgery. MEDICATIONS OUTPATIENT 1. Warfarin. 2. Tirosint. 3. Atorvastatin. 4. Metoprolol. 5. Flagyl. ALLERGIES SULFA. ACYCLOVIR. FAMILY HISTORY Positive for lung cancer and TX in the family. No history of colon cancer or colon polyps. SOCIAL HISTORY Does not smoke, does not drink alcohol. REVIEW OF SYSTEMS CONSTITUTIONAL: No fever. She has had some chills in the past. CARDIOPULMONARY: No chest pain, palpitations, wheezing or shortness of breath. GASTROINTESTINAL: Please see above. Otherwise unremarkable 10-point review of systems. MEDICATIONS IN THE HOSPITAL 1. Synthroid. 2. Metoprolol. 3. Pravachol. 4. Catapres. 5. [place]. 6. Tylenol. 7. Zofran. 8. Narcan. 9. Milk of Magnesia as needed. 10. Senokot as needed. 11. Dulcolax as needed. 12. Lactulose as needed. PHYSICAL EXAMINATION VITAL SIGNS: Blood pressure is 138/72, pulse rate was 80, respiratory rate 20, temperature is 96.2. GENERAL: She is an elderly white female resting comfortably at this time. She is in no acute GI distress. HEENT: Pupils are equal and reactive to light. No scleral icterus. Oropharyngeal cavity has dental caries. No tongue deviation or candidal lesion. Hearing is intact. NECK: Supple. No thyromegaly or lymphadenopathy. LUNGS: Clear to auscultation and percussion. HEART: Irregular rate and rhythm. No gross murmurs heard. ABDOMEN: Soft. Mild diffuse tenderness but no rebound tenderness, organomegaly, masses or ascites noted. Bowel sounds positive in the upper quadrants. RECTAL EXAM: Not done. EXTREMITIES: No clubbing, cyanosis or edema. SKIN: Warm and dry. NEUROLOGIC: Cranial nerves II through XII are grossly intact. She was alert and oriented x 3. DATA BASE Stool pathogens revealed that her C-difficile toxin PCR is negative. Stool for rotavirus was negative. Cryptosporidium is pending. There are rare WBCs. Giardia is pending. Stool hemoccults are negative. Cultures also pending apparently. IMAGING STUDIES The CT scan of the abdomen and pelvis done showed minimal ascites. There is some borderline prominence of the left ovary. There is a prominent anterior wall thickening. As mentioned above there is mild hydronephrosis and soft tissue density at the UPJ on the right side. Urology has seen the patient already. A pelvic ultrasound was done which revealed a cyst on the left ovary. The right ovary is not seen. There is a small amount of clear fluid in the pelvis. IMPORTANT LABORATORIES On admission a prothrombin time of 151.8; it dropped down to 42.2 today. INR 12.3, now at 3.5. PTT of 92.7. OF NOTE The liver was unremarkable on CAT scan. There was no ductal dilatation. There are small calcified gallstones. Also important laboratories revealed on admission SGOT was 173, SGPT was 185, alk phos was 181, total bilirubin of 0.3, today total bilirubin of 0.4. SGOT has dropped to 118, SGPT has dropped to 152, alk phos has dropped to 148. Total protein was 6.8, albumin of 2.4. BUN was 8, creatinine 0.55, potassium 3.6. White blood cell count 5300 yesterday, today is 4700. Hemoglobin 13.2, today is 12.5. Hematocrit of 37, MCV of 88.2, platelet count of 197,000. IMPRESSION 1. Diarrhea - She has had multiple episodes of watery diarrhea. She did not respond to Flagyl. Differentials in an elderly woman include inflammatory bowel disease as well as collagenous or microscopic colitis. She may have a viral gastroenteritis also. Could not rule out a reaction to medications , etc. 2. Abdominal pain, diffuse, colicky in nature. A little more significant in the left lower quadrant. She has no diverticula noted on the CAT scan or colonoscopy. This may be reactive to what is going on in the colon. 3. Increased LFTs. She denies any blood transfusion or exposure to hepatitis. I cannot rule out an autoimmune disease or viral process. RECOMMENDATIONS 1. Chronic liver labs - ordered. 2. Questran 4 grams b.i.d. and continue bowel rest. 3. The patient also will need a colonoscopy or at least a sigmoidoscopy once her prothrombin time and INR are better. We did talk about the indications, risks, complications, benefits and alternatives of the procedure, risk of bleeding, perforation, infection, arrhythmias and the small possibility of . She understands this and is willing to accept these risks if the procedure is needed. Sandeep Villagomez MD SP/UTE /6:19 PM /5:53 AM TRINA
[2017-02-09 07:50] VITALS: BP 132/74; PULSE 78; RESP 20; TEMP 96.8; O2SAT 94
[2017-02-09] MEDS: METOPROLOL TARTRATE 25 MG TAB PO SCH ×2 (08:19→20:36)
[2017-02-09] MEDS: CHOLESTYRAMINE 4 GM PACKET PO SCH ×2 (08:28→20:36)
[2017-02-09] MEDS: SODIUM CHLORIDE 0.9% FLUSH 10 ML FLUSH IV FLUSH SCH ×2 (08:29→20:36)
--- NOTE | 2017-02-09 08:59 | HHI.GIFU ---
GI Follow-up Note Consult Follow-up Subjective: Patient had had no diarrhea since Questran started. she does have lots of mucus per rectum Objective: PHYSICAL EXAMINATION: Vitals signs stable No fever HEENT:; no jaundice. Throat is clear. NECK: Neck is supple, no JVD, no lymphadenopathy. CHEST: Chest is clear to auscultation and percussion. ABDOMEN: Soft, nondistended, nontender; no hepatosplenomegaly; bowel sounds are present in all four quadrants. EXTREMITIES: No clubbing, cyanosis, or edema. SKIN: Normal; no rash; no jaundice. PURCHASING/RECEIVING: alert and oriented times three. Available Data (labs, X- Rays, Procedures) : liver labs pending ASSESSMENT/PLAN: 1. Diarrhea-improved. still with mucus. pt wants to proceed with lower exam 2. elevated LFT-labs pending 3. Abd pain-better PLAN: 1. awaiting labs 2. bowel rest 3. Questran-cont 4, Colon/Flex sig once INR/PT improved--awaiting PT/INR. Risks, indications reviewed It was a pleasure seeing Xochilt Montanez. Thank you for this consult. Entered by: Sandeep Burrell MD Feb 09, 2017 08:59
--- NOTE | 2017-02-09 10:40 | HHI.PR ---
Subjective Remarks Patient reports persistent abdominal pain today. Had 2 bowel movements today. One of them liquid diarrhea and the other one a very small caliber stool. She denies any nausea or vomiting. No bleeding Objective Vitals Vital Signs Date Time Temp Pulse Resp B/P Pulse Ox O2 Delivery O2 Flow Rate FiO2 02/09/17 07:50 96.8 78 20 132/74 94 02/09/17 04:00 96.6 75 17 143/73 96 02/09/17 00:00 96.1 78 18 132/71 94 02/08/17 20:00 96.2 84 17 119/66 95 02/08/17 15:30 96.2 81 20 138/72 95 02/08/17 11:43 96.9 83 20 117/70 94 I/O 02/08/17 02/08/17 02/08/17 02/09/17 02/09/17 02/09/17 07:00 15:00 23:00 07:00 15:00 23:00 Intake Total 0 ml 0 ml Output Total 450 ml 300 ml 400 ml Balance -450 ml -300 ml -400 ml Intake Oral 0 ml 0 ml Output Urine Total 450 ml 300 ml 400 ml # Voids 2 # Bowel Movements 1 0 Result Diagram: 02/08/17 0634 02/08/17 0636 Objective Remarks GENERAL: This is a well-nourished, well-developed patient, in no apparent distress. CARDIOVASCULAR: Normal rate and regular rhythm without murmurs, gallops, or rubs. RESPIRATORY: Good respiratory efforts. Breath sounds equal and clear to auscultation bilaterally. GASTROINTESTINAL: Abdomen soft, nondistended, tender to palpation over the left lower quadrant. Normal active bowel sounds MUSCULOSKELETAL: Extremities without cyanosis, or edema. PSYCH: Appropriate mood and affect. A/P Problem List: (1) Diarrhea ICD Code: R19.7 Status: Acute (2) Bladder wall thickening ICD Code: N32.89 Status: Acute (3) Abdominal pain ICD Code: R10.9 Status: Acute (4) Supratherapeutic INR ICD Code: R79.1 Status: Acute (5) Hematuria ICD Code: R31.9 Status: Acute (6) Paroxysmal a-fib ICD Code: I48.0 Status: Acute (7) Hypertension ICD Code: I10 Status: Acute Assessment and Plan 66-year-old female with a past medical history significant for coronary artery disease status post previous [place] in 2011 with attempted but unsuccessful stent placement currently on Coumadin, hypertension, dyslipidemia and hypothyroidism who presents to [facility] ED after being told to come in by her PCP for supratherapeutic INR of 7. Patient also reports 3 week history of abdominal pain and ongoing diarrhea consisting of 10-15+ pudding consistency stools daily. Abdominal pain, bilateral lower quadrants Chronic Diarrhea/fecal incontinence Wt loss The patient was treated empirically with Flagyl 7 days prior to admission without improvement of her symptoms. - CT abd/pelvis, images personally reviewed showing prominence of the right renal pelvis and possible mild hydronephrosis with prominent soft tissue density at the UPJ, underlying neoplastic process should be excluded. Prominent anterior bladder wall thickening measuring 9 mm. Borderline prominent left ovary. -GI following. Plan for endoscopy when INR improved. -Flagyl discontinued at this time. C. difficile negative. - Clear liquid diet - pain management - Zofran prn N/V Supratherapeutic INR, likely secondary to Flagyl. - INR 12.3 on presentation. Status post vitamin K. Repeat INR today. Continue to hold Coumadin. Monitor INR. Mild hydronephrosis with prominent soft tissue density at the UPJ Prominent bladder thickening - Creatinine 0.70 GFR 83. UA with mod blood, mod leukocytes and 34 RBCs -Appreciate urology consult, patient will eventually need cystoscopy and ureteroscopy once the acute issues are resolved. This can potentially be done outpatient. - Monitor BMP Borderline prominence left ovary - Complaints of left lower quadrant pain - Pelvic ultrasound revealed a left ovarian cyst. Coronary artery disease Previous IA in 2011 with attempted but unsuccessful stent placement Hypertension Dyslipidemia - Resume home metoprolol 25 mg by mouth twice a day - Hold warfarin due to supratherapeutic INR - Resume statin therapy - Clonidine prn with parameters - Monitor Hypothyroidism - Resume home levothyroxine dose 88 MCG daily - TSH level ok DVT prophylaxis - Chemoprophylaxis contraindicated due to supratherapeutic INR Problem Qualifiers (1) Diarrhea: Qualified Code: R19.7 - Diarrhea, unspecified type (2) Abdominal pain: Qualified Code: R10.84 - Generalized abdominal pain (3) Hematuria: Qualified Code: R31.9 - Hematuria, unspecified type Charmaine Palacios MD Feb 09, 2017 10:40
--- NOTE | 2017-02-09 11:24 | HHI.PR ---
Subjective Patient symptoms today Pt seen and examined. Diarrhea x 2 this AM. Still with some abdominal pain. Objective Vital Signs Vital Signs Date Time Temp Pulse Resp B/P Pulse Ox O2 Delivery O2 Flow Rate FiO2 02/09/17 07:50 96.8 78 20 132/74 94 02/09/17 04:00 96.6 75 17 143/73 96 02/09/17 00:00 96.1 78 18 132/71 94 02/08/17 20:00 96.2 84 17 119/66 95 02/08/17 15:30 96.2 81 20 138/72 95 02/08/17 11:43 96.9 83 20 117/70 94 Intake & Output 02/09/17 02/09/17 06:59 18:59 Output Total 400 ml Balance -400 ml Output Urine Total 400 ml # Voids 2 Result Diagram: 02/08/17 0634 02/08/17 0636 Objective Remarks Abd:soft, tendness with palpation Neg CVAT Ext: neg C/C/E Medications and IVs Current Medications Medications (Trade) Dose Ordered Sig/Trina Route Start Time Stop Time Status Last Admin (NS Flush) 2 ml UNSCH PRN IV FLUSH 02/07/17 17:00 (NS Flush) 2 ml BID IV FLUSH 02/07/17 21:00 02/08/17 09:00 (Tylenol) 650 mg Q4H PRN PO 02/07/17 17:00 (Zofran Inj) 4 mg Q6H PRN IVP 02/07/17 17:00 (Narcan Inj) 0.4 mg UNSCH PRN IV 02/07/17 17:00 (Milk Of Magnesia Liq) 30 ml Q12H PRN PO 02/07/17 17:00 (Senokot) 17.2 mg Q12H PRN PO 02/07/17 17:00 (Dulcolax Supp) 10 mg DAILY PRN RECTAL 02/07/17 17:00 (Lactulose Liq) 30 ml DAILY PRN PO 02/07/17 17:00 (Synthroid) 88 mcg DAILY@06 PO 02/08/17 06:00 02/09/17 04:55 (Lopressor) 25 mg BID PO 02/07/17 21:00 02/09/17 08:19 (Pravachol) 80 mg HS PO 02/07/17 21:00 02/08/17 20:32 ([place] 5-325 Mg) 1 tab Q4H PRN PO 02/07/17 18:00 ([place] 10-325 Mg) 1 tab Q4H PRN PO 02/07/17 18:00 Clonidine 0.1 mg 0.1 mg Q6H PRN PO 02/07/17 18:15 (D5-1/2 NS + KCl 10 Meq Inj) 1,000 ml @ 100 mls/hr Q10H IV 02/08/17 16:00 02/09/17 04:55 (Questran 4 Gm Pkt) 4 gm Q12HR PO 02/08/17 21:00 02/09/17 08:28 Assessment and Plan Assessment and Plan 66 y.o female admitted with abdominal pain and diarrhea super therapeutic on Warfarin. INR at 3.5 Right hydronephrosis with bladder wall thickening noted on recent CT scan. Will need cysto with right URS after diarrhea, abdominal pain and over coagulation resolves Artemio Jones DO Feb 09, 2017 11:24
[2017-02-09 11:30] VITALS: BP 125/74; PULSE 81; RESP 20; TEMP 96.3; O2SAT 96
[2017-02-09 11:53] LABS: AUTOMATED NEUTROPHIL # 3.4 TH/MM3 (1.8-7.7); BASOPHIL % 0.4 % (0.0-2.0); EOSINOPHIL # 0.1 TH/MM3 (0-0.4); EOSINOPHIL % 1.8 % (0.0-4.0); HEMO FLAGS DIFF FINAL; LYMPH % 14.5 % (9.0-44.0); LYMPHOCYTE # 0.7 TH/MM3 (1.0-4.8); MEAN CELL VOLUME 89.1 FL (80.0-100.0); MEAN CORPUSCULAR HGB CONC 32.6 % (32.0-36.0); MONO % 8.9 % (0.0-8.0); NEUT % 74.4 % (16.0-70.0); PLATELET COUNT 270 TH/MM3 (150-450); RED BLOOD COUNT 4.49 MIL/MM3 (4.00-5.30); RED CELL DISTRIBUTION WIDTH 14.7 % (11.6-17.2); WHITE BLOOD COUNT 4.6 TH/MM3 (4.0-11.0)
[2017-02-09 12:04] LABS: BICARBONATE 29.6 MEQ/L (21.0-32.0); POTASSIUM 3.6 MEQ/L (3.5-5.1)
[2017-02-09 12:06] LABS: TRANSFERRIN IRON PROFILE 139 MG/DL (200-360)
[2017-02-09 12:14] LABS: INTERNATIONAL NORMALIZED RATIO 1.5 RATIO; PROTHROMBIN TIME - PATIENT 16.7 SEC (9.8-11.6)
[2017-02-09 12:27] LABS: FERRITIN 349 NG/ML (8-252)
[2017-02-09 13:26] LABS: HEPATITIS B SURFACE ANTIBODY 0 mIU/mL
[2017-02-09 15:50] VITALS: BP 154/79; PULSE 88; RESP 20; TEMP 96.9; O2SAT 97
[2017-02-09] MEDS ORDERED: PEG (High)/E-LYTE SOLN 4000 ML BTL PO ONE (17:30)
[2017-02-09] MEDS: PRAVASTATIN SOD 80 MG TAB PO SCH (20:36)
[2017-02-09 22:00] VITALS: BP 146/83; PULSE 92; RESP 16; TEMP 97.4; O2SAT 96
[2017-02-09] MEDS: ACETAMINOPHEN/HYDROcodone 325 MG/10 MG TAB PO PRN (22:22)
[2017-02-10] VITALS: BP 133/84; PULSE 85; RESP 16; TEMP 97.8; O2SAT 95
[2017-02-10] MEDS: D5-1/2 NS + KCL 10 MEQ INJ 1,000 ML IV SCH ×2 (01:30→15:44)
[2017-02-10 04:00] VITALS: BP 139/86; PULSE 83; RESP 16; TEMP 97.2; O2SAT 96
[2017-02-10] MEDS: LEVOTHYROXINE SODIUM 88 MCG TAB PO SCH ×2 (05:40→06:00)
[2017-02-10] MEDS: ONDANSETRON HCL 4 MG/2 ML VIAL IVP PRN ×2 (05:43→16:33)
[2017-02-10 06:53] LABS: HEMATOCRIT 39.3 % (35.0-46.0); MEAN CELL VOLUME 88.7 FL (80.0-100.0); MEAN CORPUSCULAR HEMOGLOBIN 29.5 PG (27.0-34.0); MEAN CORPUSCULAR HGB CONC 33.3 % (32.0-36.0); PLATELET COUNT 278 TH/MM3 (150-450); RED BLOOD COUNT 4.43 MIL/MM3 (4.00-5.30); REVIEW FLAG FINAL; WHITE BLOOD COUNT 4.8 TH/MM3 (4.0-11.0)
[2017-02-10 07:03] LABS: INTERNATIONAL NORMALIZED RATIO 1.1 RATIO; PROTHROMBIN TIME - PATIENT 12.4 SEC (9.8-11.6)
[2017-02-10 07:14] LABS: BICARBONATE 32.2 MEQ/L (21.0-32.0); POTASSIUM 3.7 MEQ/L (3.5-5.1)
[2017-02-10 07:17] LABS: INDIRECT BILIRUBIN 0.3 MG/DL (0.0-0.8); TOTAL BILIRUBIN ADULT 0.4 MG/DL (0.2-1.0)
[2017-02-10 08:00] VITALS: BP 138/83; PULSE 81; RESP 16; TEMP 97.1; O2SAT 96
[2017-02-10] MEDS: CHOLESTYRAMINE 4 GM PACKET PO SCH ×2 (09:00→20:19)
[2017-02-10] MEDS: SODIUM CHLORIDE 0.9% FLUSH 10 ML FLUSH IV FLUSH SCH ×2 (09:00→20:21)
[2017-02-10] MEDS: METOPROLOL TARTRATE 25 MG TAB PO SCH ×2 (09:00→20:17)
--- NOTE | 2017-02-10 10:14 | HHI.PR ---
Subjective Remarks Patient reports some cramping abdominal discomfort. Has been having bowel movement with likely. No nausea or vomiting. Will have colonoscopy today per GI. Objective Vitals Vital Signs Date Time Temp Pulse Resp B/P Pulse Ox O2 Delivery O2 Flow Rate FiO2 02/10/17 08:00 97.1 81 16 138/83 96 02/10/17 04:00 97.2 83 16 139/86 96 02/10/17 00:00 97.8 85 16 133/84 95 02/09/17 22:00 97.4 92 16 146/83 96 02/09/17 15:50 96.9 88 20 154/79 97 02/09/17 11:30 96.3 81 20 125/74 96 I/O 02/09/17 02/09/17 02/09/17 02/10/17 02/10/17 02/10/17 06:59 14:59 22:59 06:59 14:59 22:59 Intake Total 680 ml 600 ml 3472 ml Output Total 400 ml 575 ml 400 ml 600 ml Balance -400 ml 105 ml 200 ml 2872 ml Intake Oral 680 ml 600 ml 0 ml IV Total 3472 ml Output Urine Total 400 ml 575 ml 400 ml 600 ml # Voids 2 # Bowel Movements 2 1 2 Result Diagram: 02/10/1752402/10/17524 Objective Remarks GENERAL: This is a well-nourished, well-developed patient, in no apparent distress. CARDIOVASCULAR: Normal rate and regular rhythm without murmurs, gallops, or rubs. RESPIRATORY: Good respiratory efforts. Breath sounds equal and clear to auscultation bilaterally. GASTROINTESTINAL: Abdomen soft, nondistended, tender to palpation over the left lower quadrant. Normal active bowel sounds MUSCULOSKELETAL: Extremities without cyanosis, or edema. PSYCH: Appropriate mood and affect. A/P Problem List: (1) Diarrhea ICD Code: R19.7 Status: Acute (2) Bladder wall thickening ICD Code: N32.89 Status: Acute (3) Abdominal pain ICD Code: R10.9 Status: Acute (4) Supratherapeutic INR ICD Code: R79.1 Status: Acute (5) Hematuria ICD Code: R31.9 Status: Acute (6) Paroxysmal a-fib ICD Code: I48.0 Status: Acute (7) Hypertension ICD Code: I10 Status: Acute Assessment and Plan 66-year-old female with a past medical history significant for coronary artery disease status post previous [place] in 2011 with attempted but unsuccessful stent placement currently on Coumadin, hypertension, dyslipidemia and hypothyroidism who presents to [facility] ED after being told to come in by her PCP for supratherapeutic INR of 7. Patient also reports 3 week history of abdominal pain and ongoing diarrhea consisting of 10-15+ pudding consistency stools daily. Abdominal pain, bilateral lower quadrants Chronic Diarrhea/fecal incontinence Wt loss The patient was treated empirically with Flagyl 7 days prior to admission without improvement of her symptoms. - CT abd/pelvis, images personally reviewed showing prominence of the right renal pelvis and possible mild hydronephrosis with prominent soft tissue density at the UPJ, underlying neoplastic process should be excluded. Prominent anterior bladder wall thickening measuring 9 mm. Borderline prominent left ovary. -GI following. Plan for colonoscopy today. -Flagyl discontinued at this time. C. difficile negative. - Clear liquid diet - pain management - Zofran prn N/V Supratherapeutic INR, likely secondary to Flagyl. INR down to 1.1 - INR 12.3 on presentation. Status post vitamin K. Repeat INR today. Continue to hold Coumadin. Monitor INR. Mild hydronephrosis with prominent soft tissue density at the UPJ Prominent bladder thickening - Creatinine 0.70 GFR 83. UA with mod blood, mod leukocytes and 34 RBCs -Appreciate urology consult, patient will eventually need cystoscopy and ureteroscopy once the acute issues are resolved. Urology following - Monitor BMP Borderline prominence left ovary - Complaints of left lower quadrant pain - Pelvic ultrasound revealed a left ovarian cyst. Coronary artery disease Afib Previous OH in 2011 with attempted but unsuccessful stent placement Hypertension Dyslipidemia - Resume home metoprolol 25 mg by mouth twice a day - Resume statin therapy - Clonidine prn with parameters - Monitor - Plan to resume Coumadin once cleared by GI. Hypothyroidism - Resume home levothyroxine dose 88 MCG daily - TSH level ok DVT prophylaxis - SCDs. Problem Qualifiers (1) Diarrhea: Qualified Code: R19.7 - Diarrhea, unspecified type (2) Abdominal pain: Qualified Code: R10.84 - Generalized abdominal pain (3) Hematuria: Qualified Code: R31.9 - Hematuria, unspecified type Charmaine Palacios MD Feb 10, 2017 10:14
[2017-02-10 12:00] VITALS: BP 145/74; PULSE 85; RESP 16; TEMP 96.4; O2SAT 97
[2017-02-10] MEDS ORDERED: PROPOFOL 200 MG/20 ML AMP IV PUSH ONE (14:29)
--- NOTE | 2017-02-10 14:44 | GIPROC ---
[facility] [address] [facility]. [facility], [address] COLONOSCOPY PROCEDURE REPORT EXAM DATE: 02/10/2017 PATIENT NAME: Xochilt Montanez MR #: [id number] BIRTHDATE: 1950 ENDOSCOPIST: Sandeep Villagomez MD ORDER #: [id number] LOADER OPERATOR/GROUND LEADER: Keren Rodriguez and Harjeet Uribe STATUS: inpatient INDICATIONS: The patient is a 66 yr old female here for a colonoscopy due to unexplained diarrhea PROCEDURE PERFORMED: Colonoscopy, incomplete Colonoscopy with biopsy MEDICATIONS: None and Per Anesthesia. PREP QUALITY: adequate PREP TYPE:GoLytely ESTIMATED BLOOD LOSS: None CONSENT: The patient understands the risks and benefits of the procedure and understands that these risks include, but are not limited to: sedation, allergic reaction, infection, perforation and/or bleeding. Alternative means of evaluation and treatment include, among others: physical exam, x-rays, and/or surgical intervention. The patient elects to proceed with this endoscopic procedure. medical equipment was checked for proper function. Hand hygiene and appropriate measures for infection prevention was taken. After the risks, benefits and alternatives of the procedure were thoroughly explained, Informed consent was verified, confirmed and timeout was successfully executed by the treatment team. A digital exam stricture felt at rectosigmoid junction The Pentax [id number] and Pentex Ultraslim colonoscope (this and adult scope would not pass the rectosigmoid junction) endoscope was introduced through the anus and advanced to the rectum. The instrument was then slowly withdrawn as the colon was fully examined. COLON FINDINGS: Non traversable stenosis (narrowing) was found in the rectosigmoid colon. Multiple biopsies of the area were performed using cold forceps. Retroflexion was not performed The scope was then completely withdrawn from the patient and the procedure terminated. ADVERSE EVENTS: There were no complications. IMPRESSIONS: 1. Stenosis (narrowing) in the rectosigmoid colon; multiple biopsies of the area were performed using cold forceps 2. Retroflexion was not performed 3. Stricture felt at rectosigmoid junction RECOMMENDATIONS: 1. Ct scan of Abd/Pelvis 2. Await biopsy results. Biopsy results will not be ready for 7-10 days. If you don't hear from us in two weeks, call our office for results. RECALL: Sandeep Villagomez MD eSigned: Sandeep Villagomez MD 02/10/2017 2:43 PM cc:
[2017-02-10] MEDS ORDERED: SIMETHICONE SUSP DROPS 40 MG/0.6 ML 30 ML BTL PO ONE (14:50)
[2017-02-10 15:00] VITALS: BP 147/87; PULSE 88; RESP 16; TEMP 97.8; O2SAT 96
[2017-02-10] MEDS ORDERED: NALOXONE HCL 0.4 MG/ML AMP IV PRN (15:00)
[2017-02-10] MEDS ORDERED: FLUMAZENIL 0.5 MG/5 ML VIAL IV PRN ×2 (15:00)
[2017-02-10 15:03] LABS: ANA SCREEN POS (NEG)
[2017-02-10] MEDS ORDERED: DIATRIZOATE MEGLUM/DIATRIZOATE SOD 9 ML CUP PO ONE (15:15)
[2017-02-10] MEDS ORDERED: MORPHINE SULFATE 4 MG/ML INJ IV PUSH STA (15:47)
[2017-02-10] MEDS ORDERED: MORPHINE SULFATE 4 MG/ML INJ IV PUSH PRN (16:00)
[2017-02-10] MEDS ORDERED: IOHEXOL 350 MG/ML 10 ML VIAL (for RAD DIAG) IV ONE (17:27)
--- NOTE | 2017-02-10 18:01 | RADRPT ---
EXAM DATE/TIME: 02/10/2017 17:23 [place] COMPARISON: CT ABDOMEN & PELVIS W CONTRAST, February 07, 2017, 15:20. INDICATIONS : Abdominal pain. IV CONTRAST: 95 cc Omnipaque 350 (iohexol) IV ORAL CONTRAST: Patient refused oral contrast. RADIATION DOSE: 7.27 CTDIvol (mGy) MEDICAL HISTORY : Cardiovascular disease. Hypertension. SURGICAL HISTORY : varicous veins. ENCOUNTER: Initial ACUITY: 1 day PAIN SCALE: 4/10 LOCATION: abdominal TECHNIQUE: Volumetric scanning of the abdomen and pelvis was performed. Using automated exposure control and ad justment of the mA and/or kV according to patient size, radiation dose was kept as low as reasonably achievable to obtain optimal diagnostic quality images. DICOM format image data is available electro nically for review and comparison. FINDINGS: LOWER LUNGS: There is a 4 mm noncalcified pulmonary nodule in the right lower lobe. LIVER: Homogeneous density without lesion. There is no dilation of the biliary tree. There is a single christoph cified stone in the gallbladder. SPLEEN: Normal size without lesion. PANCREAS: Within normal limits. KIDNEYS: There is severe right hydronephrosis and enlargement of the extrarenal pelvis with caliber change at the level of the ureter pelvic junction. As described previously there is a questionable soft tissue thickening of the ureter at the ureteropelvic junction. Left kidney has a normal appearance. No stone s are visualized. ADRENAL GLANDS: Within normal limits. VASCULAR: There is no aortic aneurysm. There is moderate to severe atherosclerotic disease. BOWEL/MESENTERY: A small hiatal hernia is present. Small bowel demonstrates no abnormality. The proximal colon is dist ended with fluid, possibly bowel prep with recent colonoscopy was attempted. There is severe wall thi ckening of nearly the entire rectum but more severe inferiorly. Inflammatory changes present in the m esorectum. There is a small volume of free fluid within the abdomen and pelvis with stranding within the omentum. ABDOMINAL WALL: Within normal limits. RETROPERITONEUM: There is no lymphadenopathy. BLADDER: There is stable wall thickening of the anterior urinary bladder measuring approximately 10 mm in thic kness. REPRODUCTIVE: There is a stable low density structure in the left adnexa which could represent a normal ovary it ag ain measures approximately 3 cm. INGUINAL: There is no lymphadenopathy or hernia. MUSCULOSKELETAL: There degenerative changes of the lumbar spine. CONCLUSION: 1. Stable severe wall thickening of the entire rectum with induration of the fat in the mesial rectum . A malignancy or inflammatory process could both have this appearance. 2. There is a new fluid in the right and transverse colon possibly related to interval bowel prep. 3. Stable wall thickening of the anterior urinary bladder suspicious for a neoplastic process. 4. Stable severe right hydronephrosis with caliber change at the ureteropelvic junction. As described previously there is questionable thickening of the ureter in this area which could be related to a m alignant process. 5. Persistent free fluid in the abdomen and pelvis with stranding in the omentum. 6. There is a 4 mm pulmonary nodule identified in the right lower lobe. Phoenix Pruitt MD on February 10, 2017 at 17:47 Board Certified Radiologist. This report was verified electronically.
[2017-02-10 20:00] VITALS: BP 144/83; PULSE 95; RESP 18; TEMP 96.8; O2SAT 93
[2017-02-10] MEDS: PRAVASTATIN SOD 80 MG TAB PO SCH (20:18)
[2017-02-10] MEDS: ACETAMINOPHEN/HYDROcodone 325 MG/10 MG TAB PO PRN (20:18)
[2017-02-10] MEDS: MESALAMINE HD 800 MG DELAYED RELEASE TAB PO SCH (22:00)
[2017-02-11] VITALS: BP 118/71; PULSE 83; RESP 17; TEMP 97.7; O2SAT 94
[2017-02-11] MEDS: D5-1/2 NS + KCL 10 MEQ INJ 1,000 ML IV SCH ×4 (01:30→22:09)
[2017-02-11 04:00] VITALS: BP 102/58; PULSE 77; RESP 18; TEMP 96.4; O2SAT 98
[2017-02-11] MEDS: LEVOTHYROXINE SODIUM 88 MCG TAB PO SCH (05:30)
[2017-02-11] MEDS: MESALAMINE HD 800 MG DELAYED RELEASE TAB PO SCH ×3 (05:31→19:28)
[2017-02-11] MEDS: ONDANSETRON HCL 4 MG/2 ML VIAL IVP PRN ×2 (05:32→19:28)
[2017-02-11 07:58] VITALS: BP 107/68; PULSE 79; RESP 16; TEMP 96.6; O2SAT 95
--- NOTE | 2017-02-11 08:41 | HHI.GIFU ---
GI Follow-up Note Consult Follow-up Subjective: Patient laying in bed comfortably. had some abd pain after the lower exam-better now. Occ loose and mucus stools Objective: PHYSICAL EXAMINATION: Vitals signs stable No fever HEENT: Pupils round and reactive to light; normocephalic; atraumatic; no jaundice. Throat is clear. NECK: Neck is supple, no JVD, no lymphadenopathy. CHEST: Chest is clear to auscultation and percussion. ABDOMEN: Soft, nondistended, mild tender; no hepatosplenomegaly; bowel sounds are present in all four quadrants. SKIN: no jaundice. 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 Available Data (labs, X- Rays, Procedues) : Repeat CT scan reviewed ASSESSMENT/PLAN: 1. Diarrhea-improved. still with mucus. 2. elevated LFT-most abs pending 3. Abd pain-better 4. 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 Bx pending. 5. Hydronephrosis and UPJ lesion 6. Lung nodule PLAN: 1. awaiting labs and path 2. Clear liquid diet 3. Questran-cont 4. Asacol till bx come back 5. your W/U in regards to kidney and lung lesion 6. In anticoagulation is needed consider Lovenox until bx come back It was a pleasure seeing Xochilt Montanez. Thank you for this consult. Entered by: Sandeep Burrell MD Feb 11, 2017 08:41
[2017-02-11] MEDS: CHOLESTYRAMINE 4 GM PACKET PO SCH ×2 (09:00→19:28)
[2017-02-11] MEDS: SODIUM CHLORIDE 0.9% FLUSH 10 ML FLUSH IV FLUSH SCH ×2 (09:00→19:28)
[2017-02-11] MEDS: METOPROLOL TARTRATE 25 MG TAB PO SCH ×2 (09:18→19:28)
--- NOTE | 2017-02-11 10:30 | HHI.PR ---
Subjective Remarks Patient reports she is doing okay. Still having some abdominal discomfort. Reports her mouth is dry and pasty. Objective Vitals Vital Signs Date Time Temp Pulse Resp B/P Pulse Ox O2 Delivery O2 Flow Rate FiO2 02/11/17 07:58 96.6 79 16 107/68 95 02/11/17 04:00 96.4 77 18 102/58 98 02/11/17 00:00 97.7 83 17 118/71 94 02/10/17 20:00 96.8 95 18 144/83 93 02/10/17 15:00 97.8 88 16 147/87 96 02/10/17 14:58 80 16 136/76 98 02/10/17 14:45 80 16 125/66 95 02/10/17 14:30 98.3 81 16 121/67 96 02/10/17 12:00 96.4 85 16 145/74 97 I/O 02/10/17 02/10/17 02/10/17 02/11/17 02/11/17 02/11/17 07:00 15:00 23:00 07:00 15:00 23:00 Intake Total 3472 ml 200 ml 2238 ml Output Total 600 ml 250 ml 550 ml 200 ml Balance 2872 ml -50 ml -550 ml 2038 ml Intake Oral 0 ml 0 ml 120 ml IV Total 3472 ml 200 ml 2118 ml Output Urine Total 600 ml 250 ml 450 ml 200 ml Emesis 100 ml # Voids 2 # Bowel Movements 2 3 1 Result Diagram: 02/10/17 0525 02/10/17 0525 Imaging Last Impressions Chest CT 02/11/17 0000 Signed Impressions: Service Date/Time: Saturday, February 11, 2017 11:21 - CONCLUSION: Right middle lobe infiltrate and questionable tiny nodules bilaterally, repeat noncontrasted CT is suggested in 6 months as a conservative follow up. Navjot Jonas MD Abdomen/Pelvis CT 02/10/17 0000 Signed Impressions: Service Date/Time: Friday, February 10, 2017 17:23 - CONCLUSION: 1. Stable severe wall thickening of the entire rectum with induration of the fat in the mesial rectum. A malignancy or inflammatory process could both have this appearance. 2. There is a new fluid in the right and transverse colon possibly related to interval bowel prep. 3. Stable wall thickening of the anterior urinary bladder suspicious for a neoplastic process. 4. Stable severe right hydronephrosis with caliber change at the ureteropelvic junction. As described previously there is questionable thickening of the ureter in this area which could be related to a malignant process. 5. Persistent free fluid in the abdomen and pelvis with stranding in the omentum. 6. There is a 4 mm pulmonary nodule identified in the right lower lobe. Phoenix Pruitt MD Renal Ultrasound 02/07/17 0000 Signed Impressions: Service Date/Time: Tuesday, February 07, 2017 18:00 - CONCLUSION: Dilated right renal pelvis. The UPJ soft tissue lesion and bladder abnormality noted on the CT examination is not clearly evaluated on ultrasound. This would be best assessed with cystoscopy and ureteroscopy. Rafita Schilling MD Abdomen/Pelvis/Transvag US 02/07/17 0000 Signed Impressions: Service Date/Time: Tuesday, February 07, 2017 18:09 - CONCLUSION: 1. Cyst left ovary. 2. Right ovary not seen. 3. Small amount of free fluid in the pelvis. Rafita Schilling MD Objective Remarks GENERAL: This is a well-nourished, well-developed patient, in no apparent distress. HEENT: ?thrush CARDIOVASCULAR: Normal rate and regular rhythm without murmurs, gallops, or rubs. RESPIRATORY: Good respiratory efforts. Breath sounds equal and clear to auscultation bilaterally. GASTROINTESTINAL: Abdomen soft, nondistended, tender to palpation over the left lower quadrant. Normal active bowel sounds MUSCULOSKELETAL: Extremities without cyanosis, or edema. PSYCH: Appropriate mood and affect. A/P Problem List: (1) Diarrhea ICD Code: R19.7 Status: Acute (2) Bladder wall thickening ICD Code: N32.89 Status: Acute (3) Abdominal pain ICD Code: R10.9 Status: Acute (4) Supratherapeutic INR ICD Code: R79.1 Status: Acute (5) Hematuria ICD Code: R31.9 Status: Acute (6) Paroxysmal a-fib ICD Code: I48.0 Status: Acute (7) Hypertension ICD Code: I10 Status: Acute Assessment and Plan 66-year-old female with a past medical history significant for coronary artery disease status post previous LA in 2011 with attempted but unsuccessful stent placement currently on Coumadin, hypertension, dyslipidemia and hypothyroidism who presents to [facility] ED after being told to come in by her PCP for supratherapeutic INR of 7. Patient also reports 3 week history of abdominal pain and ongoing diarrhea consisting of 10-15+ pudding consistency stools daily. Abdominal pain, bilateral lower quadrants Chronic Diarrhea/fecal incontinence Wt loss The patient was treated empirically with Flagyl 7 days prior to admission without improvement of her symptoms. - CT abd/pelvis, images personally reviewed showing prominence of the right renal pelvis and possible mild hydronephrosis with prominent soft tissue density at the UPJ, underlying neoplastic process should be excluded. Prominent anterior bladder wall thickening measuring 9 mm. Borderline prominent left ovary. -GI following. Status post colonoscopy. 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 The scope could not be passed. Biopsy was taken and pathology is pending. -Flagyl discontinued at this time. C. difficile negative. -Advance diet as tolerated - Pain management - Questran and Asacol per GI until biopsy result returns. Supratherapeutic INR, likely secondary to Flagyl. INR down to 1.1 - INR 12.3 on presentation. Status post vitamin K. Repeat INR today. Continue to hold Coumadin until biopsy returns. Will start Lovenox for prophylaxis. Mild hydronephrosis with prominent soft tissue density at the UPJ Prominent bladder thickening - Creatinine 0.70 GFR 83. UA with mod blood, mod leukocytes and 34 RBCs -Appreciate urology consult, patient will eventually need cystoscopy and ureteroscopy once the acute issues are resolved. Urology following - Monitor BMP Borderline prominence left ovary - Complaints of left lower quadrant pain - Pelvic ultrasound revealed a left ovarian cyst. Coronary artery disease Afib Previous LA in 2011 with attempted but unsuccessful stent placement Hypertension Dyslipidemia - Resume home metoprolol 25 mg by mouth twice a day - Resume statin therapy - Clonidine prn with parameters - Monitor - Plan to resume Coumadin once cleared by GI. Start Lovenox Pulmonary nodule: Discovered on abdominal CT. She does have a history of tobacco abuse. Obtain chest CT Hypothyroidism - Resume home levothyroxine dose 88 MCG daily - TSH level ok DVT prophylaxis - SCDs. Problem Qualifiers (1) Diarrhea: Qualified Code: R19.7 - Diarrhea, unspecified type (2) Abdominal pain: Qualified Code: R10.84 - Generalized abdominal pain (3) Hematuria: Qualified Code: R31.9 - Hematuria, unspecified type Rimpel,Ricardy MD Feb 11, 2017 10:30
[2017-02-11] MEDS: ENOXAPARIN SODIUM 40 MG/0.4 ML SYRINGE SQ SCH (10:49)
[2017-02-11] MEDS: NYSTATIN SUSP 500,000 U/5 ML CUP SWISH-SWAL SCH ×4 (10:49→19:28)
[2017-02-11 12:00] VITALS: BP 128/77; PULSE 71; RESP 18; TEMP 96.3; O2SAT 96
--- NOTE | 2017-02-11 12:10 | RADRPT ---
EXAM DATE/TIME: 02/11/2017 11:21 [facility] COMPARISON: CT ABDOMEN & PELVIS W CONTRAST, February 10, 2017, 17:23. INDICATIONS : Right lower lobe lung nodule. RADIATION DOSE: 9.40 CTDIvol (mGy) MEDICAL HISTORY : Cardiovascular disease. Hypertension. SURGICAL HISTORY : None. ENCOUNTER: Initial ACUITY: 1 day PAIN SCALE: 0/10 LOCATION: chest TECHNIQUE: Volumetric scanning of the chest was performed. Using automated exposure control and adjustment of t he mA and/or kV according to patient size, radiation dose was kept as low as reasonably achievable to obtain optimal diagnostic quality images. DICOM format image data is available electronically for r eview and comparison. Follow-up recommendations for incidentally detected pulmonary nodules are based at a minimum on nodul e size and patient risk factors according to Fleischner Society Guidelines. FINDINGS: Ascites is present in the upper abdomen. There is slight atelectasis and/or infiltrate right mid dle lobe with areas of scarring in lingula as well. There is some mucus in the posterior portion of t he trachea. There is a questionable tiny 4-5 mm nodule adjacent to the left major fissure probably be nign with a similar size questionable nodule right lower lobe versus tortuous blood vessel . Coronary artery calcifications are seen typically seen with CAD and need to be evaluated clinically. CONCLUSION: Right middle lobe infiltrate and questionable tiny nodules bilaterally, repeat noncontrasted CT is montemayor ggested in 6 months as a conservative follow up. Navjot Jonas MD on February 11, 2017 at 12:05 Board Certified Radiologist. This report was verified electronically.
[2017-02-11 16:00] VITALS: BP 127/74; PULSE 75; RESP 18; TEMP 98.1; O2SAT 94
[2017-02-11] MEDS: PRAVASTATIN SOD 80 MG TAB PO SCH (19:28)
[2017-02-11 20:00] VITALS: BP 123/73; PULSE 81; RESP 16; TEMP 96.7; O2SAT 93
[2017-02-11] MEDS: ACETAMINOPHEN/HYDROcodone 325 MG/5 MG TAB PO PRN (22:08)
[2017-02-12] VITALS: BP 127/69; PULSE 76; RESP 17; TEMP 96.6; O2SAT 92
[2017-02-12 03:50] LABS: MITOCHONDRIAL ABS LESS THAN 20.0 U (())
[2017-02-12 04:00] VITALS: BP 115/70; PULSE 71; RESP 16; TEMP 97.7; O2SAT 94
[2017-02-12] MEDS: MESALAMINE HD 800 MG DELAYED RELEASE TAB PO SCH ×3 (05:07→20:34)
[2017-02-12] MEDS: D5-1/2 NS + KCL 10 MEQ INJ 1,000 ML IV SCH (05:07)
[2017-02-12] MEDS: ACETAMINOPHEN/HYDROcodone 325 MG/5 MG TAB PO PRN (05:07)
[2017-02-12] MEDS: LEVOTHYROXINE SODIUM 88 MCG TAB PO SCH (05:07)
[2017-02-12 06:41] LABS: HEMATOCRIT 37.9 % (35.0-46.0); MEAN CELL VOLUME 89.7 FL (80.0-100.0); MEAN CORPUSCULAR HEMOGLOBIN 29.2 PG (27.0-34.0); MEAN CORPUSCULAR HGB CONC 32.5 % (32.0-36.0); PLATELET COUNT 256 TH/MM3 (150-450); RED BLOOD COUNT 4.22 MIL/MM3 (4.00-5.30); RED CELL DISTRIBUTION WIDTH 14.7 % (11.6-17.2); REVIEW FLAG FINAL; WHITE BLOOD COUNT 3.9 TH/MM3 (4.0-11.0)
[2017-02-12 06:50] LABS: BICARBONATE 33.4 MEQ/L (21.0-32.0); POTASSIUM 3.7 MEQ/L (3.5-5.1)
[2017-02-12] MEDS: CHOLESTYRAMINE 4 GM PACKET PO SCH (07:58)
[2017-02-12] MEDS: SODIUM CHLORIDE 0.9% FLUSH 10 ML FLUSH IV FLUSH SCH ×2 (07:58→20:42)
[2017-02-12] MEDS: METOPROLOL TARTRATE 25 MG TAB PO SCH ×2 (07:59→20:34)
[2017-02-12] MEDS: NYSTATIN SUSP 500,000 U/5 ML CUP SWISH-SWAL SCH ×4 (07:59→20:42)
[2017-02-12 08:00] VITALS: BP 117/73; PULSE 87; RESP 18; TEMP 96.7; O2SAT 92
--- NOTE | 2017-02-12 11:52 | HHI.PR ---
Subjective Remarks Patient reports abdominal bloating and distention. Still having nausea and left lower quadrant abdominal pain. Not passing gas. No bowel movements today. Objective Vitals Vital Signs Date Time Temp Pulse Resp B/P Pulse Ox O2 Delivery O2 Flow Rate FiO2 02/12/17 08:00 96.7 87 18 117/73 92 02/12/17 04:00 97.7 71 16 115/70 94 02/12/17 00:00 96.6 76 17 127/69 92 02/11/17 20:00 96.7 81 16 123/73 93 02/11/17 16:00 98.1 75 18 127/74 94 02/11/17 12:00 96.3 71 18 128/77 96 I/O 02/11/17 02/11/17 02/11/17 02/12/17 02/12/17 02/12/17 07:00 15:00 23:00 07:00 15:00 23:00 Intake Total 2238 ml 560 ml 1293 ml 480 ml 995 ml Output Total 200 ml 400 ml 800 ml Balance 2038 ml 560 ml 893 ml -320 ml 995 ml Intake Oral 120 ml 20 ml 240 ml 480 ml IV Total 2118 ml 540 ml 1053 ml 995 ml Output Urine Total 200 ml 400 ml 800 ml # Voids 6 Result Diagram: 02/12/17 0502 02/12/17 0502 Objective Remarks GENERAL: This is a well-nourished, well-developed patient, in no apparent distress. CARDIOVASCULAR: Normal rate and regular rhythm without murmurs, gallops, or rubs. RESPIRATORY: Good respiratory efforts. Breath sounds equal and clear to auscultation bilaterally. GASTROINTESTINAL: Abdomen distended compared to prior exam, tender to palpation over the left lower quadrant. Hyperactive bowel sounds MUSCULOSKELETAL: Extremities without cyanosis, or edema. PSYCH: Appropriate mood and affect. A/P Problem List: (1) Diarrhea ICD Code: R19.7 Status: Acute (2) Bladder wall thickening ICD Code: N32.89 Status: Acute (3) Abdominal pain ICD Code: R10.9 Status: Acute (4) Supratherapeutic INR ICD Code: R79.1 Status: Acute (5) Hematuria ICD Code: R31.9 Status: Acute (6) Paroxysmal a-fib ICD Code: I48.0 Status: Acute (7) Hypertension ICD Code: I10 Status: Acute Assessment and Plan 66-year-old female with a past medical history significant for coronary artery disease status post previous IA in 2011 with attempted but unsuccessful stent placement currently on Coumadin, hypertension, dyslipidemia and hypothyroidism who presents to [facility] ED after being told to come in by her PCP for supratherapeutic INR of 7. Patient also reports 3 week history of abdominal pain and ongoing diarrhea consisting of 10-15+ pudding consistency stools daily. Abdominal pain, bilateral lower quadrants Chronic Diarrhea/fecal incontinence Wt loss The patient was treated empirically with Flagyl 7 days prior to admission without improvement of her symptoms. - CT abd/pelvis, images personally reviewed showing prominence of the right renal pelvis and possible mild hydronephrosis with prominent soft tissue density at the UPJ, underlying neoplastic process should be excluded. Prominent anterior bladder wall thickening measuring 9 mm. Borderline prominent left ovary. -GI following. Status post colonoscopy. 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 The scope could not be passed. Biopsy was taken and pathology is pending. -Flagyl discontinued at this time. C. difficile negative. -Advance diet as tolerated - Pain management - Questran and Asacol per GI until biopsy result returns. 02/12- Worsening abdominal distention. Obtain KUB. NPO. Cont IVF. Further plans per GI. Supratherapeutic INR, likely secondary to Flagyl. INR down to 1.1 - INR 12.3 on presentation. Status post vitamin K. Repeat INR today. Continue to hold Coumadin until biopsy returns. Will start Lovenox for prophylaxis. Mild hydronephrosis with prominent soft tissue density at the UPJ Prominent bladder thickening - Creatinine 0.70 GFR 83. UA with mod blood, mod leukocytes and 34 RBCs -Appreciate urology consult, patient will eventually need cystoscopy and ureteroscopy once the acute issues are resolved. Urology following - Monitor BMP Borderline prominence left ovary - Complaints of left lower quadrant pain - Pelvic ultrasound revealed a left ovarian cyst. Coronary artery disease Afib Previous IA in 2011 with attempted but unsuccessful stent placement Hypertension Dyslipidemia - Resume home metoprolol 25 mg by mouth twice a day - Resume statin therapy - Clonidine prn with parameters - Monitor - Plan to resume Coumadin once cleared by GI. Start Lovenox Pulmonary nodule: Discovered on abdominal CT. She does have a history of tobacco abuse. Chest CT obtained. Recommends follow-up noncontrast CT in 6 months. Hypothyroidism - Resume home levothyroxine dose 88 MCG daily - TSH level ok DVT prophylaxis - SCDs. Problem Qualifiers (1) Diarrhea: Qualified Code: R19.7 - Diarrhea, unspecified type (2) Abdominal pain: Qualified Code: R10.84 - Generalized abdominal pain (3) Hematuria: Qualified Code: R31.9 - Hematuria, unspecified type Charmaine Palacios MD Feb 12, 2017 11:52
[2017-02-12 12:00] VITALS: BP 118/76; PULSE 76; RESP 16; TEMP 97.1; O2SAT 93
[2017-02-12] MEDS: ENOXAPARIN SODIUM 40 MG/0.4 ML SYRINGE SQ SCH (12:52)
--- NOTE | 2017-02-12 13:00 | HHI.GIFU ---
GI Follow-up Note Consult Follow-up Subjective: Patient laying in bed --states more bloating and abd pain. no BM but did just pass a little gas. no gi bleeding. not taking the Questran Objective: PHYSICAL EXAMINATION: Vitals signs stable No fever CHEST: Chest is clear to auscultation and percussion. CARDIAC: Regular rate and rhythm with no murmur gallop or rubs. ABDOMEN: mild distended and tender. no rebound. no hepatosplenomegaly; bowel sounds are present in all four quadrants. EXTREMITIES: No clubbing, cyanosis, or edema. SKIN: no rash; no jaundice. 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 Available Data (labs, X- Rays, Procedues) : ASSESSMENT/PLAN: 1. Diarrhea-improved. 2. elevated LFT-most labs pending 3. Abd pain-feels more bloated and uncomfortable today 4. 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 Bx pending. 5. Hydronephrosis and UPJ lesion 6. Lung nodule PLAN: 1. awaiting labs and path 2. NPO except meds 3. Stop Questran 4. Asacol till bx come back 5. your W/U in regards to kidney and lung lesion 6. will ask Colorectal surgery to see pt It was a pleasure seeing Xochilt Montanez. Thank you for this consult. Entered by: Sandeep Burrell MD Feb 12, 2017 13:00
--- NOTE | 2017-02-12 13:33 | RADRPT ---
EXAM DATE/TIME: 02/12/2017 12:21 [facility] COMPARISON: CT ABDOMEN & PELVIS W CONTRAST, February 10, 2017, 17:23. INDICATIONS : Lower abdominal pain with hematuria since December with diarrhea for the last three weeks. MEDICAL HISTORY : Enlarged right kidney. Urinary bladder mass. Rectal inflammation. Rectal wall thickening. SURGICAL HISTORY : None. ENCOUNTER: Subsequent ACUITY: 4 - 6 months PAIN SCORE: 7/10 LOCATION: Bilateral lower abdomen. FINDINGS: The bowel gas is nonspecific without any signs of obstruction or free air. Approximate 2.2 cm gallsto ne is present. There are possible calcifications overlapping the right kidney of uncertain location, however the patient's prior CT examination did not demonstrate any stones and these may be within bow el. CONCLUSION: Gallstone. Navjot Jonas MD on February 12, 2017 at 13:29 Board Certified Radiologist. This report was verified electronically.
[2017-02-12] MEDS: D5-1/2 NS + KCL 20 MEQ INJ 1,000 ML IV SCH (15:56)
[2017-02-12 16:00] VITALS: BP 138/79; PULSE 83; RESP 16; TEMP 98.8; O2SAT 92
[2017-02-12] MEDS ORDERED: ceFAZolin 2 GM PREMIX 50 ML IV SCH (16:15)
--- NOTE | 2017-02-12 16:50 | EKG ---
Date Performed: 02/12/2017 Time Performed: 16:26:51 PTAGE: 66 years EKG: Sinus rhythm NONSPECIFIC T-WAVE ABNORMALITY BORDERLINE ECG PREVIOUS TRACING : 07/05/2016 21.18 No significant change from previous tracing noted. DOCTOR: Joce Hunt Interpretating Date/Time 02/12/2017 16:49:04
[2017-02-12 20:00] VITALS: BP 146/83; PULSE 97; RESP 16; TEMP 97.2; O2SAT 93
[2017-02-12] MEDS: PRAVASTATIN SOD 80 MG TAB PO SCH (20:34)
[2017-02-13] VITALS: BP 132/83; PULSE 79; RESP 16; TEMP 98.4; O2SAT 94
[2017-02-13] MEDS ORDERED: SODIUM CHLORID 0.9% 500 ML IV PRN (02:00)
[2017-02-13] MEDS ORDERED: INSULIN HUMAN REGULAR 1,000 UNITS/10 ML VIAL SQ PRN (02:00)
[2017-02-13] MEDS ORDERED: LACTATED RINGER'S 1000 ML IV PRN (02:00)
[2017-02-13] MEDS ORDERED: CHLORHEXIDINE GLUCONATE 2 % 1 PACK (2 CLOTHS) TOPICAL PRN (02:00)
[2017-02-13] MEDS ORDERED: POVIDONE IODINE 5% (ANTISEPSIS KIT) 4 APPLICATIONS EACH NARE PRN (02:00)
[2017-02-13] MEDS: MESALAMINE HD 800 MG DELAYED RELEASE TAB PO SCH (04:59)
[2017-02-13] MEDS: ACETAMINOPHEN/HYDROcodone 325 MG/5 MG TAB PO PRN (04:59)
[2017-02-13] MEDS: LEVOTHYROXINE SODIUM 88 MCG TAB PO SCH (04:59)
[2017-02-13] MEDS: D5-1/2 NS + KCL 20 MEQ INJ 1,000 ML IV SCH (05:02)
[2017-02-13 05:04] VITALS: BP 122/74; PULSE 80; RESP 16; TEMP 96.1; O2SAT 94
[2017-02-13 07:55] LABS: HEMATOCRIT 39.7 % (35.0-46.0); MEAN CELL VOLUME 89.5 FL (80.0-100.0); MEAN CORPUSCULAR HEMOGLOBIN 29.6 PG (27.0-34.0); MEAN CORPUSCULAR HGB CONC 33.1 % (32.0-36.0); PLATELET COUNT 321 TH/MM3 (150-450); RED BLOOD COUNT 4.44 MIL/MM3 (4.00-5.30); RED CELL DISTRIBUTION WIDTH 15.2 % (11.6-17.2); REVIEW FLAG FINAL; WHITE BLOOD COUNT 4.1 TH/MM3 (4.0-11.0)
[2017-02-13 08:00] VITALS: BP 139/89; PULSE 87; RESP 16; TEMP 97; O2SAT 96
--- NOTE | 2017-02-13 08:00 | HHI.PR ---
Subjective Remarks Pt seen, chart and xrays reviewed. Objective Vital Signs Date Time Temp Pulse Resp B/P Pulse Ox O2 Delivery O2 Flow Rate FiO2 02/13/17 05:04 96.1 80 16 122/74 94 02/13/17 00:00 98.4 79 16 132/83 94 02/12/17 20:00 97.2 97 16 146/83 93 02/12/17 16:00 98.8 83 16 138/79 92 02/12/17 12:00 97.1 76 16 118/76 93 02/12/17 08:00 96.7 87 18 117/73 92 I/O 02/12/17 02/12/17 02/12/17 02/13/17 02/13/17 02/13/17 07:00 15:00 23:00 07:00 15:00 23:00 Intake Total 480 ml 995 ml 0 ml 995 ml Output Total 800 ml 500 ml Balance -320 ml 995 ml 0 ml 495 ml Intake Oral 480 ml 0 ml 0 ml 0 ml IV Total 995 ml 995 ml Output Urine Total 800 ml 500 ml # Voids 5 1 # Bowel Movements 0 1 Result Diagram: 02/13/17 0652 02/12/17 0502 Objective Remarks VS-S Abd: soft. Assessment and Plan Assessment and Plan Stooling now.For laparotomy and probable colostomy today. Probable Urologic etiology. Plan: Laparotomy,colostomy. EUA,Cysto Double J stent for hydro. Phoenix Barraza MD Feb 13, 2017 08:00
--- NOTE | 2017-02-13 08:20 | HHI.PR ---
Subjective Patient symptoms today Pt seen and examined. For OR today. Objective Vital Signs Vital Signs Date Time Temp Pulse Resp B/P Pulse Ox O2 Delivery O2 Flow Rate FiO2 02/13/17 05:04 96.1 80 16 122/74 94 02/13/17 00:00 98.4 79 16 132/83 94 02/12/17 20:00 97.2 97 16 146/83 93 02/12/17 16:00 98.8 83 16 138/79 92 02/12/17 12:00 97.1 76 16 118/76 93 Intake & Output 02/13/17 02/13/17 07:00 19:00 Intake Total 995 ml Output Total 500 ml Balance 495 ml Intake Oral 0 ml IV Total 995 ml Output Urine Total 500 ml # Voids 1 # Bowel Movements 1 Result Diagram: 02/13/17 0652 02/12/17 0502 Objective Remarks Abd:soft, tendness with palpation Neg CVAT Ext: neg C/C/E 02/13 Abd:soft, tendness with palpation Neg CVAT Ext: neg C/C/E Medications and IVs Current Medications Medications (Trade) Dose Ordered Sig/Trina Route Start Time Stop Time Status Last Admin (NS Flush) 2 ml UNSCH PRN IV FLUSH 02/07/17 17:00 (NS Flush) 2 ml BID IV FLUSH 02/07/17 21:00 02/11/17 19:28 (Tylenol) 650 mg Q4H PRN PO 02/07/17 17:00 (Zofran Inj) 4 mg Q6H PRN IVP 02/07/17 17:00 02/11/17 19:28 (Narcan Inj) 0.4 mg UNSCH PRN IV 02/07/17 17:00 (Milk Of Magnesia Liq) 30 ml Q12H PRN PO 02/07/17 17:00 (Senokot) 17.2 mg Q12H PRN PO 02/07/17 17:00 (Dulcolax Supp) 10 mg DAILY PRN RECTAL 02/07/17 17:00 (Lactulose Liq) 30 ml DAILY PRN PO 02/07/17 17:00 (Synthroid) 88 mcg DAILY@06 PO 02/08/17 06:00 02/13/17 04:59 (Lopressor) 25 mg BID PO 02/07/17 21:00 02/12/17 20:34 (Pravachol) 80 mg HS PO 02/07/17 21:00 02/12/17 20:34 (Pierron 5-325 Mg) 1 tab Q4H PRN PO 02/07/17 18:00 02/13/17 04:59 (Pierron 10-325 Mg) 1 tab Q4H PRN PO 02/07/17 18:00 02/10/17 20:18 (Catapres) 0.1 mg Q6H PRN PO 02/07/17 18:15 (Questran 4 Gm Pkt) 4 gm Q12HR PO 02/08/17 21:00 Hold 02/09/17 08:28 (Morphine Inj) 2 mg Q3H PRN IV PUSH 02/10/17 16:00 (Asacol Hd Dr) 1,600 mg Q8HR PO 02/10/17 22:00 02/13/17 04:59 Nystatin 5 ml 5 ml QID SWISH-SWAL 02/11/17 10:28 02/12/17 20:42 Potassium Chloride/Dextrose/ Sod Cl 1,000 ml @ 100 mls/hr Q10H IV 02/12/17 12:30 02/13/17 05:02 Lactated Ringer's 1,000 ml @ 30 mls/hr Q24H PRN IV 02/13/17 02:00 02/16/17 01:59 (NS 500 ml Inj) 500 ml @ 30 mls/hr [id number] PRN IV 02/13/17 02:00 02/16/17 01:59 Assessment and Plan Assessment and Plan 66 y.o female admitted with abdominal pain and diarrhea super therapeutic on Warfarin. INR at 3.5 Right hydronephrosis with bladder wall thickening noted on recent CT scan. Will need cysto with right URS after diarrhea, abdominal pain and over coagulation resolves 02/13 66 y.o female with right hydronephrosis and possible proximal ureteral mass on CT scan Pt for colostomy today per Dr. Sams Will perform cystoscopy/Right URS with possible ureteral biopsy with right JJ stent insertion Risks and benefits discussed and the patient is willing to proceed. Artemio Jones DO Feb 13, 2017 08:20
[2017-02-13] MEDS: NYSTATIN SUSP 500,000 U/5 ML CUP SWISH-SWAL SCH (08:21)
[2017-02-13] MEDS: METOPROLOL TARTRATE 25 MG TAB PO SCH ×2 (08:22→21:00)
[2017-02-13] MEDS: SODIUM CHLORIDE 0.9% FLUSH 10 ML FLUSH IV FLUSH SCH ×2 (08:25→21:00)
[2017-02-13 08:28] LABS: BICARBONATE 30.9 MEQ/L (21.0-32.0); POTASSIUM 3.4 MEQ/L (3.5-5.1)
--- NOTE | 2017-02-13 09:04 | HHI.GIFU ---
GI Follow-up Note Consult Follow-up Subjective: Patient had a loose BM today. still feels bloating. To OR (? extraluminal tumor causing bowel obstruction) Objective: PHYSICAL EXAMINATION: Vitals signs stable No fever NECK: Neck is supple, no JVD, no lymphadenopathy. CHEST: Chest is clear to auscultation and percussion. CARDIAC: Regular rate and rhythm with no murmur gallop or rubs. ABDOMEN: moderately distended, nontender; no hepatosplenomegaly; bowel sounds are present in all four quadrants. EXTREMITIES: No edema. SKIN: no jaundice. 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 Available Data (labs, X- Rays, Procedures) : labs OK ASSESSMENT/PLAN: 1. Diarrhea-prob 2nd to obstruction. Bx pending 2. elevated LFT-negative except for a + RADHA 3. Abd pain-feels more bloated and uncomfortable 4. 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 Bx pending. 5. Hydronephrosis and UPJ lesion 6. Lung nodule PLAN: 1. awaiting path 2. NPO except meds 3. Stop Questran 4. Asacol till bx come back 5. your W/U in regards to kidney and lung lesion 6. To OR today It was a pleasure seeing Xochilt Montanez. Thank you for this consult. Entered by: Sandeep Burrell MD Feb 13, 2017 09:04
--- NOTE | 2017-02-13 09:18 | HHI.PR ---
Subjective Remarks Still having abdominal discomfort but better compared to yesterday. Had a bowel movement last night. for OR today with Colorectal surgery and Urology. Objective Vitals Vital Signs Date Time Temp Pulse Resp B/P Pulse Ox O2 Delivery O2 Flow Rate FiO2 02/13/17 08:00 97.0 87 16 139/89 96 02/13/17 05:04 96.1 80 16 122/74 94 02/13/17 00:00 98.4 79 16 132/83 94 02/12/17 20:00 97.2 97 16 146/83 93 02/12/17 16:00 98.8 83 16 138/79 92 02/12/17 12:00 97.1 76 16 118/76 93 I/O 02/12/17 02/12/17 02/12/17 02/13/17 02/13/17 02/13/17 07:00 15:00 23:00 07:00 15:00 23:00 Intake Total 480 ml 995 ml 0 ml 995 ml Output Total 800 ml 500 ml Balance -320 ml 995 ml 0 ml 495 ml Intake Oral 480 ml 0 ml 0 ml 0 ml IV Total 995 ml 995 ml Output Urine Total 800 ml 500 ml # Voids 5 1 # Bowel Movements 0 1 Result Diagram: 02/13/1752 02/13/17 06 Objective Remarks GENERAL: This is a well-nourished, well-developed patient, in no apparent distress. CARDIOVASCULAR: Normal rate and regular rhythm without murmurs, gallops, or rubs. RESPIRATORY: Good respiratory efforts. Breath sounds equal and clear to auscultation bilaterally. GASTROINTESTINAL: Abdomen distended, tender to palpation over the left lower quadrant. Hyperactive bowel sounds MUSCULOSKELETAL: Extremities without cyanosis, or edema. PSYCH: Appropriate mood and affect. A/P Problem List: (1) Diarrhea ICD Code: R19.7 Status: Acute (2) Bladder wall thickening ICD Code: N32.89 Status: Acute (3) Abdominal pain ICD Code: R10.9 Status: Acute (4) Supratherapeutic INR ICD Code: R79.1 Status: Acute (5) Hematuria ICD Code: R31.9 Status: Acute (6) Paroxysmal a-fib ICD Code: I48.0 Status: Acute (7) Hypertension ICD Code: I10 Status: Acute Assessment and Plan 66-year-old female with a past medical history significant for coronary artery disease status post previous OR in 2011 with attempted but unsuccessful stent placement currently on Coumadin, hypertension, dyslipidemia and hypothyroidism who presents to [facility] ED after being told to come in by her PCP for supratherapeutic INR of 7. Patient also reports 3 week history of abdominal pain and ongoing diarrhea consisting of 10-15+ pudding consistency stools daily. Abdominal pain, bilateral lower quadrants Chronic Diarrhea/fecal incontinence Wt loss The patient was treated empirically with Flagyl 7 days prior to admission without improvement of her symptoms. Flagyl discontinued at this time. C. difficile negative. - CT abd/pelvis showing prominence of the right renal pelvis and possible mild hydronephrosis with prominent soft tissue density at the UPJ, underlying neoplastic process should be excluded. Prominent anterior bladder wall thickening measuring 9 mm. Borderline prominent left ovary. -GI following. Status post colonoscopy. 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 The scope could not be passed. Biopsy was taken and pathology is pending. - Patient evaluated by colorectal surgery, planned for laparotomy and probable colostomy today. Supratherapeutic INR, likely secondary to Flagyl. INR down to 1.1 - INR 12.3 on presentation. Status post vitamin K. Repeat INR today. Continue to hold Coumadin. On Lovenox for prophylaxis. Mild hydronephrosis with prominent soft tissue density at the UPJ Prominent bladder thickening - Creatinine 0.70 GFR 83. UA with mod blood, mod leukocytes and 34 RBCs -Appreciate urology consult, plan for cystoscopy and ureteroscopy today in the OR. - Monitor BMP Borderline prominence left ovary - Complaints of left lower quadrant pain - Pelvic ultrasound revealed a left ovarian cyst. Coronary artery disease Afib Previous OR in 2011 with attempted but unsuccessful stent placement Hypertension Dyslipidemia - Resume home metoprolol 25 mg by mouth twice a day - Resume statin therapy - Clonidine prn with parameters - Monitor - Plan to resume Coumadin once cleared by specialist. Continue Lovenox once cleared by surgery. Pulmonary nodule: Discovered on abdominal CT. She does have a history of tobacco abuse. Chest CT obtained. Recommends follow-up noncontrast CT in 6 months. Hypothyroidism - Resume home levothyroxine dose 88 MCG daily - TSH level ok DVT prophylaxis - SCDs. Problem Qualifiers (1) Diarrhea: Qualified Code: R19.7 - Diarrhea, unspecified type (2) Abdominal pain: Qualified Code: R10.84 - Generalized abdominal pain (3) Hematuria: Qualified Code: R31.9 - Hematuria, unspecified type Charmaine Palacios MD Feb 13, 2017 09:18 (3) Hematuria: Qualified Code: R31.9 - Hematuria, unspecified type Charmaine Palacios MD Feb 13, 2017 09:18
[2017-02-13 12:00] VITALS: BP 137/73; PULSE 74; RESP 16; TEMP 96.7; O2SAT 93
[2017-02-13] MEDS ORDERED: NORMOSOL R INJ 1,000 ML IV ONE (12:00)
[2017-02-13] MEDS ORDERED: ONDANSETRON HCL 4 MG/2 ML VIAL IV PUSH ONE (12:00)
[2017-02-13] MEDS ORDERED: ePHEDrine/NS 25 MG/5 ML SYR IV ONE (12:00)
[2017-02-13] MEDS ORDERED: ETOMIDATE 20 MG/10 ML VIAL IV PUSH ONE (12:00)
[2017-02-13] MEDS ORDERED: PROPOFOL 200 MG/20 ML AMP IV ONE (12:00)
[2017-02-13] MEDS ORDERED: SUGAMMADEX SODIUM 200 MG/2 ML VIAL IV PUSH ONE ×2 (14:15)
[2017-02-13] MEDS ORDERED: FAMOTIDINE 20 MG/2 ML VIAL ONE (14:16)
[2017-02-13] MEDS ORDERED: DEXAMETHASONE SOD PHOS 4 MG/ML VIAL ONE (14:16)
[2017-02-13] MEDS ORDERED: ACETAMINOPHEN 1000 MG/100 ML VIAL IV ONE (14:16)
[2017-02-13] MEDS ORDERED: BUPIVACAINE/EPINEPHRINE 0.5% 50 ML VIAL ONE (14:28)
[2017-02-13] MEDS ORDERED: LIDOCAINE 0.5%/EPINEPHrine 1:200,000 SOLN 50 ML VIAL ONE (14:29)
--- NOTE | 2017-02-13 16:08 | PD.OP ---
Operative Report Date of Surgery: Feb 13, 2017 Preoperative Diagnosis: Right hydronephrosis with possible possible ureteral lesion with rectal wall thickening Postoperative Diagnosis: Same Procedure: Cystoscopy right ureteroscopy with right double-J stent insertion Anesthesia: BETHEL Surgeon: Artemio Jones Obstetrical Tech(s): None Resident Surgeon: None Operation and Findings: 66-year-old female presented with abdominal pain and diarrhea. Findings on CT suggested possible ureteral lesion at the UPJ on the right side with right hydronephrosis with rectal wall thickening noted. Decision made to bring the patient to the operating room to undergo cystoscopy with right ureteroscopy and possible ureteral biopsy and placement of right double-J stent. Risk and benefits were discussed paraplegia is willing to proceed. The patient was brought to the operating room and placed on the operating room table in the dorsal lithotomy position. She was prepped and draped in usual sterile fashion , received preprocedure antibiotics, and general endotracheal tube anesthesia was administered. 22 Tamazight scope was inserted the bladder and baron cystoscopy did not show any bladder tumors. At the dome of the bladder there was an area of redness which appeared to be a hemangioma. There were no bladder tumors identified. A 0.35 sensor wire was passed into the right ureteral orifice and up into the right kidney. A long rigid ureteroscope was then passed along the wire up to the UPJ and no abnormality was identified at the area of the UPJ as well as into the proximal collecting system. Leaving the wire in place, the cystoscope was backloaded and then a 6 Tamazight Bard fpc right double-J stent measuring 22 cm x 6 Tamazight was placed into the right kidney with a good curl as well as into the bladder. A 16 Tamazight Pepper catheter was inserted in the bladder. This completes my dictation of the case and Dr. Lomeli will be dictating his portion of the case. Artemio Jones DO Feb 13, 2017 16:08
[2017-02-13] MEDS ORDERED: Post-op Orders (for Pharmacy) MISC XX ONE (17:00)
[2017-02-13] MEDS ORDERED: BENZOCAINE 6 MG/MENTHOL 10 MG LOZENGE BUCCAL PRN (17:00)
[2017-02-13] MEDS ORDERED: metroNIDAZOLE 500 MG INJ 100 ML IV SCH (17:00)
[2017-02-13] MEDS ORDERED: ENALAPRILAT 1.25 MG/ML VIAL IV PRN (17:00)
[2017-02-13] MEDS ORDERED: NALOXONE HCL 0.4 MG/ML AMP IV PRN (17:00)
[2017-02-13] MEDS ORDERED: POTASSIUM CHLOR 20 MEQ PREMIX 100 ML IV PRN (17:00)
[2017-02-13] MEDS ORDERED: ZOLPIDEM TARTRATE 5 MG TAB PO PRN (17:00)
[2017-02-13] MEDS ORDERED: ONDANSETRON HCL 4 MG/2 ML VIAL IV PRN (17:00)
[2017-02-13] MEDS ORDERED: KETOROLAC TROMETHAMINE 30 MG/ML (IVP) VIAL IVP PRN (17:00)
[2017-02-13] MEDS ORDERED: ACETAMINOPHEN/HYDROcodone 325 MG/5 MG TAB PO PRN ×2 (17:00)
[2017-02-13] MEDS ORDERED: SODIUM CHLORIDE 0.9% FLUSH 10 ML FLUSH IV FLUSH PRN (17:00)
[2017-02-13] MEDS ORDERED: POTASSIUM CHLOR 40 MEQ PREMIX 100 ML IV PRN (17:00)
--- NOTE | 2017-02-13 17:09 | PD.OP ---
Operative Report Date of Surgery: Feb 13, 2017 Preoperative Diagnosis: (1) Obstruction of rectum Postoperative Diagnosis: (1) Obstruction of rectum (2) Peritoneal carcinomatosis Procedure: Flexible Sigmoidoscopy with biopsies Gilmer cut needle Biopsy Rectum Exploratory laparotomy Peritoneal biopsies Diverting loop Ileostomy Anesthesia: Gen E-T Surgeon: Phoenix Barraza Watchstander(s): Dr Jones placed R ureteral stent Operation and Findings: Peritoneal Carcinomatosis with rectal obstruction and frozen pelvis Phoenix Barraza MD Feb 13, 2017 17:09
[2017-02-13] MEDS ORDERED: fentaNYL CITRATE 250 MCG/5 ML AMP ONE (17:10)
[2017-02-13] MEDS ORDERED: MIDAZOLAM HCL 2 MG/2 ML VIAL ONE (17:10)
[2017-02-13] MEDS ORDERED: MORPHINE SULFATE 4 MG/ML INJ ONE (17:10)
[2017-02-13] MEDS: D5-LR + KCL 20 MEQ INJ 1,000 ML IV SCH ×2 (17:44→23:40)
[2017-02-13 17:53] LABS: AUTOMATED NEUTROPHIL # 6.3 TH/MM3 (1.8-7.7); BASOPHIL % 0.1 % (0.0-2.0); EOSINOPHIL % 0.2 % (0.0-4.0); HEMATOCRIT 38.2 % (35.0-46.0); HEMO FLAGS DIFF FINAL; LYMPH % 4.6 % (9.0-44.0); LYMPHOCYTE # 0.3 TH/MM3 (1.0-4.8); MEAN CELL VOLUME 88.2 FL (80.0-100.0); MEAN CORPUSCULAR HGB CONC 34.1 % (32.0-36.0); MONO % 2.1 % (0.0-8.0); PLATELET COUNT 288 TH/MM3 (150-450); RED BLOOD COUNT 4.33 MIL/MM3 (4.00-5.30); RED CELL DISTRIBUTION WIDTH 14.7 % (11.6-17.2); WHITE BLOOD COUNT 6.8 TH/MM3 (4.0-11.0)
[2017-02-13] MEDS: METOCLOPRAMIDE HCL 10 MG/2 ML VIAL IVS SCH ×2 (18:00→23:40)
[2017-02-13] MEDS ORDERED: DO NOT ADM ANY ANTICOAGULANT DRUGS PRN (18:00)
[2017-02-13 18:23] LABS: BICARBONATE 28.4 MEQ/L (21.0-32.0); POTASSIUM 3.5 MEQ/L (3.5-5.1)
--- NOTE | 2017-02-13 18:31 | RADRPT ---
EXAM DATE/TIME: 02/13/2017 17:34 [place] COMPARISON: ABDOMEN KUB ONLY, February 12, 2017, 12:21. INDICATIONS : Post right JJ stent insertion MEDICAL HISTORY : Enlarged right kidney. Urinary bladder mass. Rectal inflammation. Rectal SURGICAL HISTORY : ENCOUNTER: Subsequent ACUITY: 4 - 6 days PAIN SCORE: Non-responsive. LOCATION: Abdomen FINDINGS: Supine view of the abdomen was performed. The abdominal bowel gas pattern is normal. No abnormal ma sses, calcifications, or organomegaly is seen. Stent in the right collecting system. Post surgical ch anges. Gaseous distention of bowel loops The osseous structures are unremarkable. Gallstone right up per quadrant. CONCLUSION: Gaseous distention. Right nephroureteral stent in good position. Leif Landa MD on February 13, 2017 at 18:28 Board Certified Radiologist. This report was verified electronically.
[2017-02-13 18:46] LABS: CALCIUM-PROTEIN CORRECTED 8.3 MG/DL (8.5-10.1)
[2017-02-13] MEDS: PRAVASTATIN SOD 80 MG TAB PO SCH (21:00)
[2017-02-13] MEDS: FUROSEMIDE 20 MG/2 ML VIAL IV SCH (21:00)
[2017-02-13] MEDS ORDERED: diphenhydrAMINE HCL 50 MG/ML VIAL ONE (21:02)
[2017-02-13] MEDS ORDERED: ceFAZolin INJ 1,000 MG VIAL ONE (21:59)
[2017-02-13] MEDS: ceFAZolin 2 GM PREMIX 50 ML IV SCH (22:00)
[2017-02-14 05:01] LABS: AUTOMATED NEUTROPHIL # 5.8 TH/MM3 (1.8-7.7); BASOPHIL % 0.1 % (0.0-2.0); HEMATOCRIT 38.5 % (35.0-46.0); HEMO FLAGS DIFF FINAL; LYMPH % 6.3 % (9.0-44.0); LYMPHOCYTE # 0.4 TH/MM3 (1.0-4.8); MEAN CELL VOLUME 88.5 FL (80.0-100.0); MEAN CORPUSCULAR HEMOGLOBIN 29.2 PG (27.0-34.0); MONO % 6.3 % (0.0-8.0); NEUT % 87.3 % (16.0-70.0); PLATELET COUNT 275 TH/MM3 (150-450); RED BLOOD COUNT 4.35 MIL/MM3 (4.00-5.30); RED CELL DISTRIBUTION WIDTH 14.8 % (11.6-17.2); WHITE BLOOD COUNT 6.6 TH/MM3 (4.0-11.0)
[2017-02-14 05:19] LABS: BICARBONATE 31.4 MEQ/L (21.0-32.0); POTASSIUM 4.3 MEQ/L (3.5-5.1)
[2017-02-14] MEDS: METOCLOPRAMIDE HCL 10 MG/2 ML VIAL IVS SCH ×4 (06:00→23:44)
[2017-02-14] MEDS: LEVOTHYROXINE SODIUM 88 MCG TAB PO SCH (06:00)
[2017-02-14] MEDS: ceFAZolin 2 GM PREMIX 50 ML IV SCH ×2 (06:00→14:00)
[2017-02-14] MEDS: D5-LR + KCL 20 MEQ INJ 1,000 ML IV SCH ×3 (06:20→21:38)
[2017-02-14] MEDS ORDERED: DIMETHICONE/OXYBENZONE/PADMIATE LIP BALM 4.25 GM TOPICAL ONE (08:34)
[2017-02-14] MEDS: ALVIMOPAN 12 MG CAPSULE PO SCH ×2 (09:00→21:39)
[2017-02-14] MEDS: METOPROLOL TARTRATE 25 MG TAB PO SCH ×2 (09:00→21:39)
[2017-02-14] MEDS: SODIUM CHLORIDE 0.9% FLUSH 10 ML FLUSH IV FLUSH SCH ×2 (09:00→21:00)
[2017-02-14] MEDS: FUROSEMIDE 20 MG/2 ML VIAL IV SCH ×2 (09:00→21:39)
[2017-02-14] MEDS: NYSTATIN SUSP 500,000 U/5 ML CUP SWISH-SWAL SCH ×4 (09:00→21:39)
[2017-02-14] MEDS: PANTOPRAZOLE SODIUM 40 MG VIAL IVP SCH (09:00)
--- NOTE | 2017-02-14 09:45 | HHI.GIFU ---
GI Follow-up Note Consult Follow-up Subjective: Patient laying in bed comfortably. some soreness after surgery but pain is controlled. +output from ostomy Objective: PHYSICAL EXAMINATION: 112/57-72-12 No fever NECK: no lymphadenopathy. CHEST: Chest is clear to auscultation and percussion. CARDIAC: Regular rate and rhythm with no murmur gallop or rubs. ABDOMEN: Soft, nondistended, mildly tender incision sites. no hepatosplenomegaly; bowel sounds are present in all four quadrants. EXTREMITIES: No edema. SKIN: no jaundice. SQL SERVER DBA: alert and oriented times three. Available Data (labs, X- Rays, Procedues) : all path pending. Ca-19-9 24. Ca-125 elevated at 114.2 ASSESSMENT/PLAN: 1. Diarrhea-prob 2nd to obstruction. Bx pending. pt now has an diverting ostomy 2. elevated LFT-negative except for a + RADHA 3. Abd pain-better 4. Inflammatory stricture at rectosigmoid junction--extraluminal-scope could not pass this area. 5. Hydronephrosis and UPJ lesion 6. Lung nodule 7. Peritoneal carcinomatosis-path pending. Pt aware of this PLAN: 1. awaiting path 2. Diet per surgery 3. Stop Asacol 4. will follow [place] 5. upon D/C ROV with our office It was a pleasure seeing Xochilt Montanez. Thank you for this consult. Entered by: Sandeep Burrell MD Feb 14, 2017 09:45
--- NOTE | 2017-02-14 10:41 | HHI.PR ---
Subjective Remarks Patient reports she is feeling okay. No nausea or vomiting. Pain is controlled. Objective Vitals Vital Signs Date Time Temp Pulse Resp B/P Pulse Ox O2 Delivery O2 Flow Rate FiO2 02/14/17 04:00 98.0 72 12 112/57 93 Nasal Cannula 2 02/14/17 00:00 62 11 105/60 93 Nasal Cannula 2 02/13/17 22:00 73 13 109/59 95 Nasal Cannula 2 02/13/17 21:00 97.9 77 14 113/71 94 Nasal Cannula 2 02/13/17 20:00 75 20 116/60 93 Nasal Cannula 2 02/13/17 19:00 74 16 115/62 95 Nasal Cannula 2 02/13/17 18:00 79 16 138/77 96 Nasal Cannula 2 02/13/17 17:45 77 16 156/72 98 Nasal Cannula 2 02/13/17 17:30 82 16 155/87 98 Nasal Cannula 2 02/13/17 17:15 79 20 158/86 98 Nasal Cannula 2 02/13/17 17:01 97.7 83 20 152/72 98 Nasal Cannula 2 02/13/17 12:00 96.7 74 16 137/73 93 I/O 02/13/17 02/13/17 02/13/17 02/14/17 02/14/17 02/14/17 06:59 14:59 22:59 06:59 14:59 22:59 Intake Total 995 ml 2180 ml 1560 ml Output Total 500 ml 1300 ml 925 ml Balance 495 ml 880 ml 635 ml Intake Oral 0 ml 0 ml IV Total 995 ml 580 ml 1560 ml Other 1600 ml Output Urine Total 500 ml 1250 ml 925 ml Estimated Blood Loss 50 ml # Voids 3 # Bowel Movements 1 Result Diagram: 02/14/17 0433 02/14/17 0433 Objective Remarks GENERAL: This is a well-nourished, well-developed patient, in no apparent distress. CARDIOVASCULAR: Normal rate and regular rhythm without murmurs, gallops, or rubs. RESPIRATORY: Good respiratory efforts. Breath sounds equal and clear to auscultation bilaterally. GASTROINTESTINAL: Abdominal binder in place. Did not remove the binder. Normal active bowel sounds. Defer rest of exam to surgeon. MUSCULOSKELETAL: Extremities without cyanosis, or edema. PSYCH: Appropriate mood and affect. A/P Problem List: (1) Diarrhea ICD Code: R19.7 Status: Acute (2) Bladder wall thickening ICD Code: N32.89 Status: Acute (3) Abdominal pain ICD Code: R10.9 Status: Acute (4) Supratherapeutic INR ICD Code: R79.1 Status: Acute (5) Hematuria ICD Code: R31.9 Status: Acute (6) Paroxysmal a-fib ICD Code: I48.0 Status: Acute (7) Hypertension ICD Code: I10 Status: Acute Assessment and Plan 66-year-old female with a past medical history significant for coronary artery disease status post previous NM in 2011 with attempted but unsuccessful stent placement currently on Coumadin, hypertension, dyslipidemia and hypothyroidism who presents to [facility] ED after being told to come in by her PCP for supratherapeutic INR of 7. Patient also reports 3 week history of abdominal pain and ongoing diarrhea consisting of 10-15+ pudding consistency stools daily. Abdominal pain, bilateral lower quadrants Chronic Diarrhea/fecal incontinence Wt loss Peritoneal carcinomatosis The patient was treated empirically with Flagyl 7 days prior to admission without improvement of her symptoms. Flagyl discontinued at this time. C. difficile negative. - CT abd/pelvis showing prominence of the right renal pelvis and possible mild hydronephrosis with prominent soft tissue density at the UPJ, underlying neoplastic process should be excluded. Prominent anterior bladder wall thickening measuring 9 mm. Borderline prominent left ovary. -GI following. Status post colonoscopy. 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 The scope could not be passed. Biopsy was taken and pathology is pending. - Patient evaluated by colorectal surgery, she underwent exploratory laparotomy which revealed peritoneal carcinomatosis. Patient is status post diverting loop ileostomy. - Consult Oncology Supratherapeutic INR, likely secondary to Flagyl. INR down to 1 - INR 12.3 on presentation. Status post vitamin K. Repeat INR today. Continue to hold Coumadin. On heparin for prophylaxis. Mild hydronephrosis with prominent soft tissue density at the UPJ Prominent bladder thickening - Creatinine 0.70 GFR 83. UA with mod blood, mod leukocytes and 34 RBCs -Appreciate urology following. Patient is status post Cystoscopy, right ureteroscopy with right double-J stent insertion - Voiding trial when more ambulatory per urology. Borderline prominence left ovary - Complaints of left lower quadrant pain - Pelvic ultrasound revealed a left ovarian cyst. Coronary artery disease Afib Previous NM in 2011 with attempted but unsuccessful stent placement Hypertension Dyslipidemia - Resume home metoprolol 25 mg by mouth twice a day - Resume statin therapy - Clonidine prn with parameters - Monitor - Plan to resume Coumadin once cleared by specialist. Pulmonary nodule: Discovered on abdominal CT. She does have a history of tobacco abuse. Chest CT obtained. Recommends follow-up noncontrast CT in 6 months. Hypothyroidism - Resume home levothyroxine dose 88 MCG daily - TSH level ok DVT prophylaxis - SCDs. Problem Qualifiers (1) Diarrhea: Qualified Code: R19.7 - Diarrhea, unspecified type (2) Abdominal pain: Qualified Code: R10.84 - Generalized abdominal pain (3) Hematuria: Qualified Code: R31.9 - Hematuria, unspecified type Charmaine Palacios MD Feb 14, 2017 10:41
--- NOTE | 2017-02-14 12:45 | HHI.PR ---
Subjective Patient symptoms today Pt seen and examined. Some incisional pain but controlled. Objective Vital Signs Vital Signs Date Time Temp Pulse Resp B/P Pulse Ox O2 Delivery O2 Flow Rate FiO2 02/14/17 04:00 98.0 72 12 112/57 93 Nasal Cannula 2 02/14/17 00:00 62 11 105/60 93 Nasal Cannula 2 02/13/17 22:00 73 13 109/59 95 Nasal Cannula 2 02/13/17 21:00 97.9 77 14 113/71 94 Nasal Cannula 2 02/13/17 20:00 75 20 116/60 93 Nasal Cannula 2 02/13/17 19:00 74 16 115/62 95 Nasal Cannula 2 02/13/17 18:00 79 16 138/77 96 Nasal Cannula 2 02/13/17 17:45 77 16 156/72 98 Nasal Cannula 2 02/13/17 17:30 82 16 155/87 98 Nasal Cannula 2 02/13/17 17:15 79 20 158/86 98 Nasal Cannula 2 02/13/17 17:01 97.7 83 20 152/72 98 Nasal Cannula 2 Result Diagram: 02/14/1743202/14/17432 Objective Remarks Abd:soft, tendness with palpation Neg CVAT Ext: neg C/C/E 02/13 Abd:soft, tendness with palpation Neg CVAT Ext: neg C/C/E 02/14 Abd: abdominal binder in place Perdomo with clear urine Medications and IVs Current Medications Medications (Trade) Dose Ordered Sig/Trina Route Start Time Stop Time Status Last Admin (Tylenol) 650 mg Q4H PRN PO 02/07/17 17:00 (Milk Of Magnesia Liq) 30 ml Q12H PRN PO 02/07/17 17:00 (Senokot) 17.2 mg Q12H PRN PO 02/07/17 17:00 (Dulcolax Supp) 10 mg DAILY PRN RECTAL 02/07/17 17:00 (Lactulose Liq) 30 ml DAILY PRN PO 02/07/17 17:00 (Synthroid) 88 mcg DAILY@06 PO 02/08/17 06:00 02/14/17 06:00 (Lopressor) 25 mg BID PO 02/07/17 21:00 02/13/17 21:00 (Pravachol) 80 mg HS PO 02/07/17 21:00 02/13/17 21:00 (Catapres) 0.1 mg Q6H PRN PO 02/07/17 18:15 (Questran 4 Gm Pkt) 4 gm Q12HR PO 02/08/17 21:00 Hold 02/09/17 08:28 (As[address]ol Hd [address]) 1,600 mg Q8HR PO 02/10/17 22:00 02/13/17 04:59 Nystatin 5 ml 5 ml QID SWISH-SWAL 02/11/17 10:28 02/14/17 09:00 Lactated Ringer's 1,000 ml @ 30 mls/hr Q24H PRN IV 02/13/17 02:00 02/16/17 01:59 Sodium Chloride 500 ml @ 30 mls/hr [id number] PRN IV 02/13/17 02:00 02/16/17 01:59 (D5-Lr + KCl 20 Meq Inj) 1,000 ml @ 150 mls/hr Q6H40M IV 02/13/17 18:00 02/14/17 06:20 (NS Flush) 2 ml UNSCH PRN IV FLUSH 02/13/17 17:00 Sodium Chloride 2 ml 2 ml BID IV FLUSH 02/13/17 21:00 02/14/17 09:00 (Ancef 2 Gm Premix) 50 ml @ 100 mls/hr Q8H IV 02/13/17 22:00 02/14/17 14:29 02/14/17 06:00 ([place] 5-325 Mg) 1 tab Q4H PRN PO 02/13/17 17:00 ([place] 5-325 Mg) 2 tab Q4H PRN PO 02/13/17 17:00 (Toradol Inj) 15 mg Q6H PRN IVP 02/13/17 17:00 02/16/17 16:59 (Entereg) 12 mg BID PO 02/14/17 09:00 02/20/17 21:01 02/14/17 09:00 (Protonix Inj) 40 mg DAILY IVP 02/14/17 09:00 02/14/17 09:00 (Reglan Inj) 10 mg Q6HR IVS 02/13/17 18:00 02/14/17 06:00 (Zofran Inj) 4 mg Q6H PRN IV 02/13/17 17:00 (Vasotec Inj) 1.25 mg Q4H PRN IV 02/13/17 17:00 (Ambien) 5 mg HS PRN PO 02/13/17 17:00 (Chloraseptic Ann) 1 lozenge UNSCH PRN BUCCAL 02/13/17 17:00 Furosemide 20 mg 20 mg Q12HR IV 02/13/17 21:00 02/16/17 09:01 02/14/17 09:00 Potassium Chloride 100 ml @ 50 mls/hr UNSCH PRN IV 02/13/17 17:00 (KCl 40 Meq Premix Inj) 100 ml @ 25 mls/hr UNSCH PRN IV 02/13/17 17:00 (Heparin Inj) 5,000 units Q8H SQ 02/14/17 16:00 (Narcan Inj) 0.4 mg UNSCH PRN IV 02/13/17 17:00 (Morphine 1 Mg/ ml TOBACCO DRYING MACHINE OPERATOR) 30 mg UNSCH IV 02/13/17 17:00 TOBACCO DRYING MACHINE OPERATOR Dosage Infused (Pha) 1 Q8HR .XX 02/13/17 17:00 Miscellaneous Information ALL NURSING DEPARTME... UNSCH PRN .XX 02/13/17 18:00 02/14/17 17:59 Assessment and Plan Assessment and Plan 66 y.o female admitted with abdominal pain and diarrhea super therapeutic on Warfarin. INR at 3.5 Right hydronephrosis with bladder wall thickening noted on recent CT scan. Will need cysto with right URS after diarrhea, abdominal pain and over coagulation resolves 02/13 66 y.o female with right hydronephrosis and possible proximal ureteral mass on CT scan Pt for colostomy today per Dr. Sams Will perform cystoscopy/Right URS with possible ureteral biopsy with right JJ stent insertion Risks and benefits discussed and the patient is willing to proceed. 02/14 66 y.o female s/p ex-lap with ileostomy and cysto with left JJ stent insertion Maintain perdomo catheter for now. Void trial once ambulating. Check path Artemio Jones DO Feb 14, 2017 12:45
[2017-02-14] MEDS: MESALAMINE HD 800 MG DELAYED RELEASE TAB PO SCH ×2 (14:00→23:31)
[2017-02-14 16:00] VITALS: BP 135/66; PULSE 79; RESP 20; TEMP 96.9; O2SAT 96
[2017-02-14] MEDS: PCA - TOTAL MG MORPHINE DELIVERED PER SHIFT SCH ×2 (16:00→21:40)
[2017-02-14] MEDS: HEPARIN SODIUM - SQ 10,000 UNITS/ML VIAL SQ SCH ×2 (16:18→23:44)
[2017-02-14] MEDS: MORPHINE SULFATE 30 MG/30 ML PCA IV SCH (18:33)
--- NOTE | 2017-02-14 18:52 | HHI.PR ---
Subjective Remarks No Nor V. Discussed finding of peritoneal carcinomatosis. Objective Vital Signs Date Time Temp Pulse Resp B/P Pulse Ox O2 Delivery O2 Flow Rate FiO2 02/14/17 18:33 16 02/14/17 16:00 96.9 79 20 135/66 96 02/14/17 16:00 16 02/14/17 15:00 98.2 83 15 134/70 98 Nasal Cannula 2 02/14/17 12:00 98.6 86 15 128/62 98 Nasal Cannula 2 02/14/17 09:00 91 16 109/72 100 Nasal Cannula 2 02/14/17 07:30 98.6 72 14 102/57 93 Nasal Cannula 2 02/14/17 04:00 98.0 72 12 112/57 93 Nasal Cannula 2 02/14/17 00:00 62 11 105/60 93 Nasal Cannula 2 02/13/17 22:00 73 13 109/59 95 Nasal Cannula 2 02/13/17 21:00 97.9 77 14 113/71 94 Nasal Cannula 2 02/13/17 20:00 75 20 116/60 93 Nasal Cannula 2 02/13/17 19:00 74 16 115/62 95 Nasal Cannula 2 I/O 02/13/17 02/13/17 02/13/17 02/14/17 02/14/17 02/14/17 06:59 14:59 22:59 06:59 14:59 22:59 Intake Total 995 ml 2180 ml 1560 ml 1800 ml Output Total 500 ml 1300 ml 925 ml 1525 ml Balance 495 ml 880 ml 635 ml 275 ml Intake Oral 0 ml 0 ml IV Total 995 ml 580 ml 1560 ml 1800 ml Other 1600 ml Output Urine Total 500 ml 1250 ml 925 ml 1300 ml Drainage Total 225 ml Estimated Blood Loss 50 ml # Voids 3 # Bowel Movements 1 Result Diagram: 02/14/17 04302/14/17 043 Objective Remarks VS-S Abd: Less distended, Ileostomy pink,stooling Labs-OK except CA 125 markedly elevated I&Os-OK Assessment and Plan Assessment and Plan Stable POD#1. Probable extensive Ovarian Cancer given Ca 125 elevation. Ileostomy was done because of significant distal Ileal carcinoma and possible pending obstruction. Plan: Start FLD tomorrow. Colon still needs to slowly decompress either thru rectum, or possibly proximal thru Ileocecal valve to stoma Phoenix Barraza MD Feb 14, 2017 18:52
[2017-02-14 20:00] VITALS: BP 123/63; PULSE 85; RESP 20; TEMP 97.1; O2SAT 96
--- NOTE | 2017-02-14 20:21 | MB ---
cc: COLTON SMITH M.D., RICARDY DATE OF CONSULTATION: 02/14/2017 ATTENDING PHYSICIAN: Dr. Palacios REASON FOR CONSULTATION: Oncology consulted to render opinion for patient with peritoneal carcinomatosis. HISTORY OF PRESENT ILLNESS The patient is a very pleasant 66-year-old female with history of coronary disease. She started experiencing midepigastric discomfort while eating spicy food. She went to her primary physician. She subsequently developed abdominal pain and diarrhea. She was seen by gastroenterology and treated empirically with Flagyl. Symptoms did not improve. She lost about 11 pounds and had decreased appetite. She was taking Coumadin and was found to have an INR of 7. She was referred to the emergency room and subsequently admitted. During this hospital stay, she had a CT of the abdomen and pelvis which showed prominent right renal pelvis with possible hydronephrosis and soft tissue density in the bladder and UPJ. She had cystoscopy which did not show any tumor. 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 She had a diverting ileostomy. She has soreness at the surgical site. She denies any fevers, chills, night sweats. She denies any chest pressure, palpitations. Denies any significant shortness of breath or cough. PAST MEDICAL HISTORY: 1. Coronary artery disease, status post myocardial infarction in 2011. 2. Hypertension. 3. Hyperlipidemia. 4. Hypothyroidism. PAST SURGICAL HISTORY: 1. Colonoscopy in March 2016. 2. Varicose veins surgery. 3. Hemorrhoidectomy. 4. Sinus surgery. FAMILY HISTORY: Father had lung cancer. She has a brother and sister who are both healthy. She also has a son who is healthy. SOCIAL HISTORY: Smoked from 8 years old to 39 years old. She denies alcohol use. She lives alone. ALLERGIES: ACYCLOVIR SULFA MEDICATIONS: 1. Heparin. 2. Entereg. 3. Protonix. 4. Lasix. 5. Reglan 6. Nystatin. 7. Mesalamine 8. Levothyroxine. 9. Metoprolol 10. Pravastatin. REVIEW OF SYSTEMS Constitutional: As above. Eyes: Denies blurred vision. Denies double vision. ENT: No mouth sores, or voice changes. Cardiovascular: Denies chest pressure, palpitations. Respiratory: No shortness of breath or cough. GI: As above. : As above. Musculoskeletal: Denies significant pain. Hematology: Negative. Endocrine: Negative. Dermatology: Negative. Psychiatric: Negative. Neurologic: Negative. PHYSICAL EXAMINATION VITAL SIGNS: Temperature 96.9, blood pressure 135/66, O2 saturation 96% on two liters nasal cannula. General: She is alert, oriented x3, in no acute distress. She looks tired. HEENT: Atraumatic, normocephalic. Pupils equal, round and reactive to light. Extraocular muscles are intact. No scleral icterus. Oropharynx: Dry mucosa. Neck: No thyromegaly, no palpable masses. Lymphatics: No palpable, cervical, axillary lymphadenopathy. Cardiovascular: Regular S1-S2. No murmur. Lungs: Clear to auscultation. No wheezing. No rhonchi. Abdomen: Soft. She is wearing a binder, ileostomy noted in the back, positive bowel sounds. Extremities: No clubbing, cyanosis or edema. Skin: No rash, no petechiae. Neurologic: Nonfocal. LABORATORY DATA: Reviewed. ASSESSMENT: 1. Peritoneal carcinomatosis. She started having abdominal pain and diarrhea a month ago. She had lost about 11 pounds. She had a colonoscopy in March 2016 which was benign. She had an attempt at colonoscopy again during this hospital stay but was noted to have rectal sigmoid stenosis and colonoscopy was incomplete. Random biopsy of the rectosigmoid area did not show any malignancy. She then had CT of the abdomen and pelvis which showed thickening of the entire rectum. There was also thickening of bladder wall and severe right hydronephrosis at the UPJ. She underwent exploratory laparotomy yesterday and was noted to have peritoneal carcinomatosis causing frozen pelvis and rectal obstruction. She has a diverting ileostomy. Tumor marker CA19-9 is normal. CA-125 slightly elevated at 114. Ultrasound of the pelvis showed left ovarian cyst. The right ovary is not visible. CT of the chest showed nonspecific tiny pulmonary nodules bilaterally. The biopsy of the mesenteric nodule is pending at this time. This could be primary peritoneal carcinomatosis versus metastatic carcinomatosis. She just had a mammogram done around June which was reportedly unremarkable. She also had a Pap smear done around that time which reportedly also was unremarkable. I went over the radiologic findings, probable diagnosis with the patient. I told her we will finalize the treatment recommendation once we have the final tissue diagnosis. We will consult Dr. Jeter to see if this could be a primary GAUGER CHIEF DELIVERY malignancy. 2. Thickening of the bladder wall and right hydronephrosis on CT scan. She had a cystoscopy which did not show any bladder tumor. There was also no tumor noted in the UPJ. She is status post stent placement. 3. Nonspecific pulmonary nodule noted on CT scan. She had tiny bilateral nodules. Metastatic disease cannot be totally ruled out. This will need to be monitored. 4. Coronary artery disease, status post myocardial infarction in 2011. She had no symptoms. 5. Hypothyroidism. 6. Hypertension. 7. Hyperlipidemia. RECOMMENDATIONS: Extensive discussion with the patient as above. Await pathology. Check tumor marker. Thank you Dr. Palacios for asking me to see this patient. I will follow the patient with you. MD MELVIN Frazier/PANDA /6:12 PM /8:00 PM MTDDaniela
[2017-02-14] MEDS: PRAVASTATIN SOD 80 MG TAB PO SCH (21:39)
[2017-02-15] VITALS: BP 113/67; PULSE 81; RESP 20; TEMP 97.5; O2SAT 96
[2017-02-15 04:00] VITALS: BP 124/63; PULSE 79; RESP 20; TEMP 96.7; O2SAT 97
[2017-02-15] MEDS: LEVOTHYROXINE SODIUM 88 MCG TAB PO SCH (05:59)
[2017-02-15] MEDS: PCA - TOTAL MG MORPHINE DELIVERED PER SHIFT SCH ×3 (06:00→22:00)
[2017-02-15] MEDS: METOCLOPRAMIDE HCL 10 MG/2 ML VIAL IVS SCH ×3 (06:00→16:50)
[2017-02-15] MEDS: D5-LR + KCL 20 MEQ INJ 1,000 ML IV SCH ×2 (06:00→13:38)
[2017-02-15 06:13] LABS: BASOPHIL % 0.2 % (0.0-2.0); EOSINOPHIL # 0.1 TH/MM3 (0-0.4); EOSINOPHIL % 1.4 % (0.0-4.0); HEMATOCRIT 38.2 % (35.0-46.0); HEMO FLAGS DIFF FINAL; LYMPH % 16.3 % (9.0-44.0); LYMPHOCYTE # 0.7 TH/MM3 (1.0-4.8); MEAN CELL VOLUME 89.6 FL (80.0-100.0); MEAN CORPUSCULAR HEMOGLOBIN 29.4 PG (27.0-34.0); MEAN CORPUSCULAR HGB CONC 32.8 % (32.0-36.0); MONO % 9.7 % (0.0-8.0); NEUT % 72.4 % (16.0-70.0); PLATELET COUNT 282 TH/MM3 (150-450); RED BLOOD COUNT 4.27 MIL/MM3 (4.00-5.30); RED CELL DISTRIBUTION WIDTH 14.9 % (11.6-17.2); WHITE BLOOD COUNT 4.2 TH/MM3 (4.0-11.0)
[2017-02-15 06:37] LABS: BICARBONATE 32.7 MEQ/L (21.0-32.0); POTASSIUM 4.1 MEQ/L (3.5-5.1)
--- NOTE | 2017-02-15 06:49 | MB ---
cc: VERA BROWN CHEE Y. MD MEESE,REBECCA LI MD, M.D. DATE OF CONSULTATION 02/12/2017 HISTORY OF PRESENT ILLNESS This is a 66-year-old who has been having cramps and diarrhea for the past month or so. She has also been passing blood with her urine. She was admitted to hospital with a significantly elevated INR. She underwent CT scanning which showed some anterior bladder wall thickening, thickening of the rectum and ascites, some possible stranding of the omentum. She does have a somewhat enlarged left ovary which was unremarkable an ultrasound. In addition, the CT showed a soft tissue mass in the proximal right ureter associated with obstruction. She was seen by gastroenterology and sigmoidoscopy shows significant stricture in the rectum. The patient has become grossly distended while in the hospital and is only passing minimal amounts of mucus and gas. CT scan showed increasing distension of the colon. Abdominal x-ray today shows moderate proximal colonic distension. PAST MEDICAL HISTORY She has a history of coronary artery disease that was not able to be stented. PHYSICAL EXAM On exam, she is alert without distress. Respirations are normal. SKIN: Warm and dry. ABDOMEN: Rounded and tympanic. There was some mild diffuse tenderness. RECTAL: On rectal exam, there is a significant stricture of the mid rectum which feels extrinsic and is fixed and is consistent with infiltrating malignancy of the pelvis. LABORATORY Showed that her coagulation studies have been corrected. Her creatinine and BUN are normal. ASSESSMENT Likely malignancy with infiltration of the perirectal tissues creating obstruction. PLAN I recommend exam under anesthesia with cystoscopy and rectal biopsy and repeat sigmoidoscopy. Exploratory laparotomy with a diverting colostomy is planned in addition. The risks and benefits were discussed. MD LIZET Cotter/MICHAELA /4:10 PM /6:37 AM TRINA
[2017-02-15] MEDS: MESALAMINE HD 800 MG DELAYED RELEASE TAB PO SCH ×3 (07:02→22:06)
[2017-02-15] MEDS: HEPARIN SODIUM - SQ 10,000 UNITS/ML VIAL SQ SCH ×2 (07:58→16:51)
[2017-02-15] MEDS: FUROSEMIDE 20 MG/2 ML VIAL IV SCH ×2 (07:58→22:06)
[2017-02-15] MEDS: NYSTATIN SUSP 500,000 U/5 ML CUP SWISH-SWAL SCH ×4 (07:58→22:06)
[2017-02-15] MEDS: ALVIMOPAN 12 MG CAPSULE PO SCH ×2 (07:58→22:06)
[2017-02-15] MEDS: METOPROLOL TARTRATE 25 MG TAB PO SCH ×2 (07:59→22:06)
[2017-02-15] MEDS: PANTOPRAZOLE SODIUM 40 MG VIAL IVP SCH (07:59)
[2017-02-15 08:00] VITALS: BP 129/64; PULSE 85; RESP 20; TEMP 98.6; O2SAT 96
[2017-02-15] MEDS: SODIUM CHLORIDE 0.9% FLUSH 10 ML FLUSH IV FLUSH SCH ×2 (08:03→21:00)
--- NOTE | 2017-02-15 08:51 | HHI.PR ---
Subjective Patient symptoms today Pt seen and examined. Some incisional pain noted; otherwise doing well. Objective Vital Signs Vital Signs Date Time Temp Pulse Resp B/P Pulse Ox O2 Delivery O2 Flow Rate FiO2 02/15/17 06:00 18 02/15/17 04:00 96.7 79 20 124/63 97 02/15/17 00:00 97.5 81 20 113/67 96 02/14/17 21:40 20 02/14/17 20:00 97.1 85 20 123/63 96 02/14/17 18:33 16 02/14/17 16:00 96.9 79 20 135/66 96 02/14/17 16:00 16 02/14/17 15:00 98.2 83 15 134/70 98 Nasal Cannula 2 02/14/17 12:00 98.6 86 15 128/62 98 Nasal Cannula 2 02/14/17 09:00 91 16 109/72 100 Nasal Cannula 2 Result Diagram: 02/15/1752702/15/17527 Objective Remarks Abd:soft, tendness with palpation Neg CVAT Ext: neg C/C/E 02/13 Abd:soft, tendness with palpation Neg CVAT Ext: neg C/C/E 02/14 Abd: abdominal binder in place Perdomo with clear urine 02/15 Abd: abdominal binder in place Perdomo with clear urine Medications and IVs Current Medications Medications (Trade) Dose Ordered Sig/Trina Route Start Time Stop Time Status Last Admin (Tylenol) 650 mg Q4H PRN PO 02/07/17 17:00 (Milk Of Magnesia Liq) 30 ml Q12H PRN PO 02/07/17 17:00 (Senokot) 17.2 mg Q12H PRN PO 02/07/17 17:00 (Dulcolax Supp) 10 mg DAILY PRN RECTAL 02/07/17 17:00 (Lactulose Liq) 30 ml DAILY PRN PO 02/07/17 17:00 (Synthroid) 88 mcg DAILY@06 PO 02/08/17 06:00 02/15/17 05:59 (Lopressor) 25 mg BID PO 02/07/17 21:00 02/15/17 07:59 (Pravachol) 80 mg HS PO 02/07/17 21:00 02/14/17 21:39 (Catapres) 0.1 mg Q6H PRN PO 02/07/17 18:15 (Questran 4 Gm Pkt) 4 gm Q12HR PO 02/08/17 21:00 Hold 02/09/17 08:28 (Asacol Hd Dr) 1,600 mg Q8HR PO 02/10/17 22:00 02/15/17 07:02 Nystatin 5 ml 5 ml QID SWISH-SWAL 02/11/17 10:28 02/15/17 07:58 Lactated Ringer's 1,000 ml @ 30 mls/hr Q24H PRN IV 02/13/17 02:00 02/16/17 01:59 Sodium Chloride 500 ml @ 30 mls/hr [id number] PRN IV 02/13/17 02:00 02/16/17 01:59 (D5-Lr + KCl 20 Meq Inj) 1,000 ml @ 50 mls/hr Q20H IV 02/13/17 18:00 02/15/17 06:00 (NS Flush) 2 ml UNSCH PRN IV FLUSH 02/13/17 17:00 (NS Flush) 2 ml BID IV FLUSH 02/13/17 21:00 02/14/17 09:00 ([place] 5-325 Mg) 1 tab Q4H PRN PO 02/13/17 17:00 ([place] 5-325 Mg) 2 tab Q4H PRN PO 02/13/17 17:00 (Toradol Inj) 15 mg Q6H PRN IVP 02/13/17 17:00 02/16/17 16:59 (Entereg) 12 mg BID PO 02/14/17 09:00 02/20/17 21:01 02/15/17 07:58 (Protonix Inj) 40 mg DAILY IVP 02/14/17 09:00 02/15/17 07:59 (Reglan Inj) 10 mg Q6HR IVS 02/13/17 18:00 02/14/17 16:19 (Zofran Inj) 4 mg Q6H PRN IV 02/13/17 17:00 (Vasotec Inj) 1.25 mg Q4H PRN IV 02/13/17 17:00 (Ambien) 5 mg HS PRN PO 02/13/17 17:00 (Chloraseptic Ann) 1 lozenge UNSCH PRN BUCCAL 02/13/17 17:00 Furosemide 20 mg 20 mg Q12HR IV 02/13/17 21:00 02/16/17 09:01 02/15/17 07:58 Potassium Chloride 100 ml @ 50 mls/hr UNSCH PRN IV 02/13/17 17:00 (KCl 40 Meq Premix Inj) 100 ml @ 25 mls/hr UNSCH PRN IV 02/13/17 17:00 (Heparin Inj) 5,000 units Q8H SQ 02/14/17 16:00 02/15/17 07:58 (Narcan Inj) 0.4 mg UNSCH PRN IV 02/13/17 17:00 (Morphine 1 Mg/ ml POWER PLANT INSTALLER) 30 mg UNSCH IV 02/13/17 17:00 02/14/17 18:33 POWER PLANT INSTALLER Dosage Infused (Pha) 1 Q8HR .XX 02/13/17 17:00 02/15/17 06:00 Assessment and Plan Assessment and Plan 66 y.o female admitted with abdominal pain and diarrhea super therapeutic on Warfarin. INR at 3.5 Right hydronephrosis with bladder wall thickening noted on recent CT scan. Will need cysto with right URS after diarrhea, abdominal pain and over coagulation resolves 02/13 66 y.o female with right hydronephrosis and possible proximal ureteral mass on CT scan Pt for colostomy today per Dr. Sams Will perform cystoscopy/Right URS with possible ureteral biopsy with right JJ stent insertion Risks and benefits discussed and the patient is willing to proceed. 02/14 66 y.o female s/p ex-lap with ileostomy and cysto with left JJ stent insertion Maintain perdomo catheter for now. Void trial once ambulating. Check path 02/15 66 y.o female s/p ex-lap with ileostomy and cysto with left JJ stent insertion Maintain perdomo catheter for now. Void trial in AM Path pending Artemio Jones DO Feb 15, 2017 08:51
--- NOTE | 2017-02-15 08:57 | HHI.PR ---
Subjective Remarks No Nor V. Discussed finding of peritoneal carcinomatosis. Oncology has seen patient. Objective Vital Signs Date Time Temp Pulse Resp B/P Pulse Ox O2 Delivery O2 Flow Rate FiO2 02/15/17 06:00 18 02/15/17 04:00 96.7 79 20 124/63 97 02/15/17 00:00 97.5 81 20 113/67 96 02/14/17 21:40 20 02/14/17 20:00 97.1 85 20 123/63 96 02/14/17 18:33 16 02/14/17 16:00 96.9 79 20 135/66 96 02/14/17 16:00 16 02/14/17 15:00 98.2 83 15 134/70 98 Nasal Cannula 2 02/14/17 12:00 98.6 86 15 128/62 98 Nasal Cannula 2 02/14/17 09:00 91 16 109/72 100 Nasal Cannula 2 I/O 02/14/17 02/14/17 02/14/17 02/15/17 02/15/17 02/15/17 06:59 14:59 22:59 06:59 14:59 22:59 Intake Total 1560 ml 3935 ml 1018 ml Output Total 925 ml 3150 ml 475 ml Balance 635 ml 785 ml 543 ml Intake Oral 240 ml 0 ml IV Total 1560 ml 3695 ml 1018 ml Output Urine Total 925 ml 2825 ml 400 ml Stool Total 100 ml Drainage Total 225 ml 75 ml Result Diagram: 02/15/1728 02/15/17527 Objective Remarks VS-S Abd: Less distended, Ileostomy pink,stooling Labs-OK except CA 125 markedly elevated I&Os-OK Assessment and Plan Assessment and Plan Stable POD#2. Probable extensive Ovarian Cancer given Ca 125 elevation. Ileostomy was done because of significant distal Ileal carcinoma and possible pending obstruction. Plan: Start FLD. Colon still needs to slowly decompress either thru rectum, or possibly proximal thru Ileocecal valve to stoma. Start regular diet tomorrow. Decrease IVs to 50cc/hr. Pohenix Barraza MD Feb 15, 2017 08:57
--- NOTE | 2017-02-15 10:15 | PD.ONC.PN ---
Subjective Subjective Remarks Afebrile overnight. Patient resting in room, friend at bedside. Pain controlled with pain pump. Objective Data Date Time Temp Pulse Resp B/P Pulse Ox O2 Delivery O2 Flow Rate FiO2 02/15/17 08:00 98.6 85 20 129/64 96 02/15/17 06:00 18 02/15/17 04:00 96.7 79 20 124/63 97 02/15/17 00:00 97.5 81 20 113/67 96 02/14/17 21:40 20 02/14/17 20:00 97.1 85 20 123/63 96 02/14/17 18:33 16 02/14/17 16:00 96.9 79 20 135/66 96 02/14/17 16:00 16 02/14/17 15:00 98.2 83 15 134/70 98 Nasal Cannula 2 02/14/17 12:00 98.6 86 15 128/62 98 Nasal Cannula 2 Result Diagram: 02/15/17 0528 02/15/17 0528 Laboratory Results Laboratory Tests Test 02/15/17 05:28 White Blood Count 4.2 TH/MM3 Red Blood Count 4.27 MIL/MM3 Hemoglobin 12.5 GM/DL Hematocrit 38.2 % Mean Corpuscular Volume 89.6 FL Mean Corpuscular Hemoglobin 29.4 PG Mean Corpuscular Hemoglobin 32.8 % Concent Red Cell Distribution Width 14.9 % Platelet Count 282 TH/MM3 Mean Platelet Volume 7.8 FL Neutrophils (%) (Auto) 72.4 % Lymphocytes (%) (Auto) 16.3 % Monocytes (%) (Auto) 9.7 % Eosinophils (%) (Auto) 1.4 % Basophils (%) (Auto) 0.2 % Neutrophils # (Auto) 3.0 TH/MM3 Lymphocytes # (Auto) 0.7 TH/MM3 Monocytes # (Auto) 0.4 TH/MM3 Eosinophils # (Auto) 0.1 TH/MM3 Basophils # (Auto) 0.0 TH/MM3 CBC Comment DIFF FINAL Differential Comment Sodium Level 140 MEQ/L Potassium Level 4.1 MEQ/L Chloride Level 103 MEQ/L Carbon Dioxide Level 32.7 MEQ/L Anion Gap 4 MEQ/L Blood Urea Nitrogen 6 MG/DL Creatinine 0.55 MG/DL Estimat Glomerular Filtration 110 ML/MIN Rate Random Glucose 116 MG/DL Calcium Level 7.8 MG/DL Carcinoembryonic Antigen 0.6 NG/ML CA 15-3 Antigen 19.0 U/ML Tumor Marker HCG 1 MIU/ML Administered Medications Medications (Trade) Dose Ordered Sig/Trina Route PRN Reason Start Time Stop Time Status Last Admin Dose Admin Levothyroxine Sodium (Synthroid) 88 mcg DAILY@06 PO 02/08/17 06:00 02/15/17 05:59 Metoprolol Tartrate (Lopressor) 25 mg BID PO 02/07/17 21:00 02/15/17 07:59 Pravastatin Sodium (Pravachol) 80 mg HS PO 02/07/17 21:00 02/14/17 21:39 Cholestyramine Resin (Questran 4 Gm Pkt) 4 gm Q12HR PO 02/08/17 21:00 Hold 02/09/17 08:28 Mesalamine (Asacol Hd Dr) 1,600 mg Q8HR PO 02/10/17 22:00 02/15/17 07:02 Nystatin 5 ml 5 ml QID SWISH-SWAL 02/11/17 10:28 02/15/17 07:58 Potassium Cl/ Dextrose/Lact Ringer's (D5-Lr + KCl 20 Meq Inj) 1,000 ml @ 50 mls/hr Q20H IV 02/13/17 18:00 02/15/17 06:00 Sodium Chloride (NS Flush) 2 ml BID IV FLUSH 02/13/17 21:00 02/14/17 09:00 Alvimopan (Entereg) 12 mg BID PO 02/14/17 09:00 02/20/17 21:01 02/15/17 07:58 Pantoprazole Sodium (Protonix Inj) 40 mg DAILY IVP 02/14/17 09:00 02/15/17 07:59 Metoclopramide HCl (Reglan Inj) 10 mg Q6HR IVS 02/13/17 18:00 02/14/17 16:19 Furosemide (Lasix Inj) 20 mg Q12HR IV 02/13/17 21:00 02/16/17 09:01 02/15/17 07:58 Heparin Sodium (Porcine) (Heparin Inj) 5,000 units Q8H SQ 02/14/17 16:00 02/15/17 07:58 Morphine Sulfate (Morphine 1 Mg/ ml TOPOLOGY PROFESSOR) 30 mg UNSCH IV 02/13/17 17:00 02/14/17 18:33 TOPOLOGY PROFESSOR Dosage Infused (Pha) 1 Q8HR .XX 02/13/17 17:00 02/15/17 06:00 Objective Remarks GENERAL: Middle aged female upright in chair next to bed in nad. SKIN: Warm and dry. HEAD: Normocephalic. EYES: No injection or drainage. NECK: Supple, trachea midline. CARDIOVASCULAR: Regular rate and rhythm RESPIRATORY: Breath sounds equal bilaterally. No accessory muscle use. GASTROINTESTINAL: Abdomen firm, distended, tender to palpation. ileostomy bag in place. EXTREMITIES: No cyanosis NEUROLOGICAL: No obvious focal deficit. Awake, alert, and oriented x3. Assessment/Plan Problem List: (1) Peritoneal carcinomatosis Status: Acute Plan: --await pathology --started having abdominal pain and diarrhea a month ago. She had lost about 11 pounds. --colonoscopy in March 2016 was benign. had an attempt at colonoscopy again during this hospital stay but was noted to have rectal sigmoid stenosis and colonoscopy was incomplete. --CT abdomen and pelvis which showed thickening of the entire rectum. + thickening of bladder wall and severe right hydronephrosis at the UPJ. --exploratory laparotomy 02/13 showed peritoneal carcinomatosis causing frozen pelvis and rectal obstruction. ++diverting ileostomy. --CA19-9 is normal. --CA-125 slightly elevated at 114. --Ultrasound of the pelvis showed left ovarian cyst. The right ovary is not visible. --CT chest showed nonspecific tiny pulmonary nodules bilaterally. The biopsy of the mesenteric nodule is pending at this time. could be primary peritoneal carcinomatosis versus metastatic carcinomatosis. --just had a mammogram done around June which was reportedly unremarkable. also had a Pap smear done around that time which reportedly also was unremarkable. -- will consult Dr. Jeter to see if this could be a primary BUILDING STONECUTTER malignancy. --Nonspecific pulmonary nodule noted on CT scan. She had tiny bilateral nodules. Metastatic disease cannot be totally ruled out. will need to be monitored. (2) Bladder wall thickening Status: Acute Plan: --Thickening of the bladder wall and right hydronephrosis on CT scan. She had a cystoscopy which did not show any bladder tumor. There was also no tumor noted in the UPJ. She is status post stent placement. Assessment 66y/o female with peritoneal carcinomatosis. h/o Coronary artery disease, status post myocardial infarction in 2011. Hypertension. Hyperlipidemia. Hypothyroidism. Colonoscopy in March 2016. Varicose veins surgery. Hemorrhoidectomy. Sinus surgery. Plan 1. await pathology 2. supportive care. pain management Attending Statement The exam, history, and the medical decision-making described in the above note were completed with the assistance of the mid-level provider. I reviewed and agree with the findings presented. I attest that I had a [id number] encounter with the patient on the same day, and personally performed and documented my assessment and findings in the medical record. Abdominal pain improved. Tumor markers all normal except for slightly elevated Ca125. This is possibly primary peritoneal carcinomatosis. Await final path. Danna Martin Feb 15, 2017 10:15 Esteban Leigh MD Feb 15, 2017 16:21
--- NOTE | 2017-02-15 11:30 | HHI.PR ---
Subjective Remarks sitting on the chair with no acute distress. has mild abdominal pain. no nausea or vomiting. afebrile. Objective Vitals Vital Signs Date Time Temp Pulse Resp B/P Pulse Ox O2 Delivery O2 Flow Rate FiO2 02/15/17 08:00 98.6 85 20 129/64 96 02/15/17 06:00 18 02/15/17 04:00 96.7 79 20 124/63 97 02/15/17 00:00 97.5 81 20 113/67 96 02/14/17 21:40 20 02/14/17 20:00 97.1 85 20 123/63 96 02/14/17 18:33 16 02/14/17 16:00 96.9 79 20 135/66 96 02/14/17 16:00 16 02/14/17 15:00 98.2 83 15 134/70 98 Nasal Cannula 2 02/14/17 12:00 98.6 86 15 128/62 98 Nasal Cannula 2 I/O 02/14/17 02/14/17 02/14/17 02/15/17 02/15/17 02/15/17 07:00 15:00 23:00 07:00 15:00 23:00 Intake Total 1560 ml 1800 ml 2135 ml 1018 ml Output Total 925 ml 1525 ml 1625 ml 475 ml Balance 635 ml 275 ml 510 ml 543 ml Intake Oral 240 ml 0 ml IV Total 1560 ml 1800 ml 1895 ml 1018 ml Output Urine Total 925 ml 1300 ml 1525 ml 400 ml Stool Total 100 ml Drainage Total 225 ml 75 ml Result Diagram: 02/15/17 0528 02/15/17 0528 Imaging Last Impressions Abdomen X-Ray 02/13/17 0000 Signed Impressions: Service Date/Time: Monday, February 13, 2017 17:34 - CONCLUSION: Gaseous distention. Right nephroureteral stent in good position. Leif Landa MD Chest CT 02/11/17 0000 Signed Impressions: Service Date/Time: Saturday, February 11, 2017 11:21 - CONCLUSION: Right middle lobe infiltrate and questionable tiny nodules bilaterally, repeat noncontrasted CT is suggested in 6 months as a conservative follow up. Navjot Jonas MD Abdomen/Pelvis CT 02/10/17 0000 Signed Impressions: Service Date/Time: Friday, February 10, 2017 17:23 - CONCLUSION: 1. Stable severe wall thickening of the entire rectum with induration of the fat in the mesial rectum. A malignancy or inflammatory process could both have this appearance. 2. There is a new fluid in the right and transverse colon possibly related to interval bowel prep. 3. Stable wall thickening of the anterior urinary bladder suspicious for a neoplastic process. 4. Stable severe right hydronephrosis with caliber change at the ureteropelvic junction. As described previously there is questionable thickening of the ureter in this area which could be related to a malignant process. 5. Persistent free fluid in the abdomen and pelvis with stranding in the omentum. 6. There is a 4 mm pulmonary nodule identified in the right lower lobe. Phoenix Pruitt MD Renal Ultrasound 02/07/17 0000 Signed Impressions: Service Date/Time: Tuesday, February 07, 2017 18:00 - CONCLUSION: Dilated right renal pelvis. The UPJ soft tissue lesion and bladder abnormality noted on the CT examination is not clearly evaluated on ultrasound. This would be best assessed with cystoscopy and ureteroscopy. Rafita Schilling MD Abdomen/Pelvis/Transvag US 02/07/17 0000 Signed Impressions: Service Date/Time: Tuesday, February 07, 2017 18:09 - CONCLUSION: 1. Cyst left ovary. 2. Right ovary not seen. 3. Small amount of free fluid in the pelvis. Rafita Schilling MD Objective Remarks GENERAL: This is a well-nourished, well-developed patient, in no apparent distress. CARDIOVASCULAR: Regular rate and regular rhythm without murmurs, gallops, or rubs. RESPIRATORY: Clear to auscultation. Breath sounds equal bilaterally. No wheezes , rales, or rhonchi. GASTROINTESTINAL: Abdomen soft, non-tender, nondistended. ileostomy in place. MUSCULOSKELETAL: Extremities without clubbing, cyanosis, or edema. NEURO: Alert & Oriented x4 to person, place, time, situation. Moves all ext x4 Medications and IVs Current Medications Phytonadione (Vitamin K Inj) 10 mg ONCE ONCE SQ Last administered on t 14:37; Start 02/07/17 at 14:30; Stop 02/07/17 at 14:31; Status DC Iohexol (Omnipaque 350 Inj) 87 ml STK-MED ONCE IV Last administered on 15:35; Start 02/07/17 at 15:35; Stop 02/07/17 at 15:36; Status DC Sodium Chloride (NS Flush) 2 ml UNSCH PRN IV FLUSH FLUSH AFTER USING IV ACCESS ; Start 02/07/17 at 17:00; Stop 02/13/17 at 17:31; Status DC Sodium Chloride (NS Flush) 2 ml BID IV FLUSH Last administered on 02/13/17 08: 25; Start 02/07/17 at 21:00; Stop 02/13/17 at 17:31; Status DC Acetaminophen (Tylenol) 650 mg Q4H PRN PO TEMP > 100.4; Start 02/07/17 at 17:00 Ondansetron HCl (Zofran Inj) 4 mg Q6H PRN IVP NAUSEA OR VOMITING Last administered on 02/11/17 19:28; Start 02/07/17 at 17:00; Stop 02/13/17 at 17:32 ; Status DC Naloxone HCl (Narcan Inj) 0.4 mg UNSCH PRN IV SEE LABEL COMMENTS; Start at 17:00; Stop 02/13/17 at 17:22; Status DC Magnesium Hydroxide (Milk Of Magnesia Liq) 30 ml Q12H PRN PO MILD - MODERATE CONSTIPATION; Start 02/07/17 at 17:00 Sennosides (Senokot) 17.2 mg Q12H PRN PO MODERATE - SEVERE CONSTIPATION; Start 02/07/17 at 17:00 Bisacodyl (Dulcolax Supp) 10 mg DAILY PRN RECTAL SEVERE CONSITIPATION; Start at 17:00 Lactulose (Lactulose Liq) 30 ml DAILY PRN PO SEVERE CONSITIPATION; Start at 17:00 Levothyroxine Sodium (Synthroid) 88 mcg DAILY@06 PO Last administered on 05:59; Start 02/08/17 at 06:00 Metoprolol Tartrate (Lopressor) 25 mg BID PO Last administered on 02/15/17 07: 59; Start 02/07/17 at 21:00 Pravastatin Sodium (Pravachol) 80 mg HS PO Last administered on 02/14/17 21:39 ; Start 02/07/17 at 21:00 Acetaminophen/ Hydrocodone Bitart (Letart 5-325 Mg) 1 tab Q4H PRN PO PAIN SCALE 1 TO 5 Last administered on 02/13/17 04:59; Start 02/07/17 at 18:00; Stop 02/13/17 at 17:29; Status DC Acetaminophen/ Hydrocodone Bitart (Letart 10-325 Mg) 1 tab Q4H PRN PO PAIN SCALE 6 TO 10 Last administered on 02/10/17 20:18; Start 02/07/17 at 18:00; Stop 02/13/17 at 17:30; Status DC Clonidine 0.1 mg 0.1 mg Q6H PRN PO SBP>180, DBP>95; Start 02/07/17 at 18:15 Sodium Chloride 500 ml @ 50 mls/hr Q10H IV Last administered on 02/07/17 20: 33; Start 02/07/17 at 18:15; Stop 02/08/17 at 04:14; Status DC Potassium Chloride/Dextrose/ Sod Cl (D5-1/2 NS + KCl 10 Meq Inj) 1,000 ml @ 125 mls/hr Q8H IV Last administered on 02/12/17 05:07; Start 02/08/17 at 16:00 ; Stop 02/12/17 at 13:27; Status DC Cholestyramine Resin (Questran 4 Gm Pkt) 4 gm Q12HR PO Last administered on 08:28; Start 02/08/17 at 21:00; Status Hold Polyethylene Glycol/ Electrolytes (Colyte Liq) 4,000 ml ONCE ONCE PO Last administered on 02/09/17 17:30; Start 02/09/17 at 17:30; Stop 02/09/17 at 17:31 ; Status DC Propofol (Diprivan 200 Mg/20 ml Inj) 200 mg STK-MED ONCE IV PUSH ; Start at 14:29; Stop 02/10/17 at 14:30; Status DC Simethicone (Simethicone Liq (Drops)) 2,000 mg STK-MED ONCE PO Last administered on 02/10/17 14:50; Start 02/10/17 at 14:50; Stop 02/10/17 at 14:58 ; Status DC Flumazenil (Romazicon Inj) 0.2 mg UNSCH X1 PRN IV OVERSEDATION; Start 02/10/17 at 15:00; Stop 02/11/17 at 14:59; Status DC Flumazenil (Romazicon Inj) 0.2 mg Q1M PRN IV OVERSEDATION; Start 02/10/17 at 15 :00; Stop 02/11/17 at 14:59; Status DC Naloxone HCl (Narcan Inj) 0.1 mg Q2M PRN IV OVERSEDATION; Start 02/10/17 at 15: 00; Stop 02/11/17 at 14:59; Status DC Diatrizoate Meglum/ Diatrizoate Sod ( Gastromaldonado Liq) 18 ml ONCE ONCE PO Last administered on 02/10/17 15:42; Start 02/10/17 at 15:15; Stop 02/10/17 at 15:16; Status DC Morphine Sulfate (Morphine Inj) 4 mg ONCE STAT IV PUSH Last administered on 16:33; Start 02/10/17 at 15:47; Stop 02/10/17 at 15:58; Status DC Morphine Sulfate (Morphine Inj) 2 mg Q3H PRN IV PUSH BREAKTHROUGH PAIN; Start 02/10/17 at 16:00; Stop 02/13/17 at 17:39; Status DC Iohexol (Omnipaque 350 Inj) 95 ml STK-MED ONCE IV Last administered on 17:27; Start 02/10/17 at 17:27; Stop 02/10/17 at 17:28; Status DC Mesalamine (Asacol Hd Dr) 1,600 mg Q8HR PO Last administered on 02/15/17 07:02 ; Start 02/10/17 at 22:00 Nystatin (Mycostatin Liq) 5 ml QID SWISH-SWAL Last administered on 02/15/17 07:58; Start 02/11/17 at 10:28 Enoxaparin Sodium 40 mg 40 mg Q24H SQ Last administered on 02/12/17 12:52; Start 02/11/17 at 11:00; Stop 02/12/17 at 17:16; Status DC Potassium Chloride/Dextrose/ Sod Cl 1,000 ml @ 100 mls/hr Q10H IV Last administered on 02/13/17 05:02; Start 02/12/17 at 12:30; Stop 02/13/17 at 17:20 ; Status DC Cefazolin Sodium/ Dextrose 50 ml @ 100 mls/hr [employer] IV Last administered on 02/13/17 14:46; Start 02/12/17 at 16:15; Stop 02/16/17 at 16:14 Lactated Ringer's 1,000 ml @ 30 mls/hr Q24H PRN IV SEE LABEL COMMENTS; Start at 02:00; Stop 02/16/17 at 01:59 Sodium Chloride (NS 500 ml Inj) 500 ml @ 30 mls/hr [id number] PRN IV SEE LABEL COMMENTS; Start 02/13/17 at 02:00; Stop 02/16/17 at 01:59 Povidone Iodine (Betadine 5% Antisepsis Kit) 1 applic [employer] PRN EACH NARE SEE LABEL COMMENTS; Start 02/13/17 at 02:00; Stop 02/16/17 at 01:59 Chlorhexidine Gluconate (Chlorhexidine 2% Cloth) 3 pack [employer] PRN TOPICAL SEE LABEL COMMENTS; Start 02/13/17 at 02:00; Stop 02/16/17 at 01:59 Insulin Human Regular (NovoLIN R INJ) See Protocol Table ... [employer] PRN SQ SEE PROTOCOL TABLE; Start 02/13/17 at 02:00; Stop 02/16/17 at 01:59 Sugammadex Sodium (Bridion Inj) 200 mg STK-MED ONCE IV PUSH ; Start 02/13/17 at 14:15; Stop 02/13/17 at 14:16; Status DC Acetaminophen (Ofirmev Inj) 1,000 mg STK-MED ONCE IV ; Start 02/13/17 at 14:16; Stop 02/13/17 at 14:17; Status DC Dexamethasone Sodium Phosphate (Decadron Inj) 4 mg STK-MED ONCE .ROUTE ; Start 02/13/17 at 14:16; Stop 02/13/17 at 14:17; Status DC Famotidine (Pepcid Inj) 20 mg STK-MED ONCE .ROUTE ; Start 02/13/17 at 14:16; Stop 02/13/17 at 14:17; Status DC Bupivacaine HCl/ Epinephrine Bitart (Sensorcaine-Epi 0.5% 50 ml Inj) 50 ml STK- MED ONCE .ROUTE ; Start 02/13/17 at 14:28; Stop 02/13/17 at 14:29; Status DC Lidocaine/ Epinephrine 50 ml 50 ml STK-MED ONCE .ROUTE ; Start 02/13/17 at 14:29 ; Stop 02/13/17 at 14:30; Status DC Potassium Cl/ Dextrose/Lact Ringer's (D5-Lr + KCl 20 Meq Inj) 1,000 ml @ 50 mls /hr Q20H IV Last administered on 02/15/17 06:00; Start 02/13/17 at 18:00 Sodium Chloride (NS Flush) 2 ml UNSCH PRN IV FLUSH FLUSH AFTER USING IV ACCESS ; Start 02/13/17 at 17:00 Sodium Chloride 2 ml 2 ml BID IV FLUSH Last administered on 02/14/17 09:00; Start 02/13/17 at 21:00 Cefazolin Sodium/ Dextrose 50 ml @ 100 mls/hr Q8H IV Last administered on 02/14 14:00; Start 02/13/17 at 22:00; Stop 02/14/17 at 14:29; Status DC Metronidazole (Flagyl 500 Mg Inj) 100 ml @ 200 mls/hr Q8H IV ; Start 02/13/17 at 17:00; Stop 02/13/17 at 19:16; Status DC Miscellaneous Information (Post-op Orders (for Pharmacy)) STAT ONCE XX ; Start 02/13/17 at 17:00; Stop 02/13/17 at 17:33; Status DC Acetaminophen/ Hydrocodone Bitart (Letart 5-325 Mg) 1 tab Q4H PRN PO PAIN SCALE 1 TO 4; Start 02/13/17 at 17:00 Acetaminophen/ Hydrocodone Bitart (Letart 5-325 Mg) 2 tab Q4H PRN PO PAIN SCALE 5 TO 10; Start 02/13/17 at 17:00 Ketorolac Tromethamine (Toradol Inj) 15 mg Q6H PRN IVP BREAKTHROUGH PAIN; Start 02/13/17 at 17:00; Stop 02/16/17 at 16:59 Alvimopan (Entereg) 12 mg BID PO Last administered on 02/15/17 07:58; Start at 09:00; Stop 02/20/17 at 21:01 Pantoprazole Sodium (Protonix Inj) 40 mg DAILY IVP Last administered on 07:59; Start 02/14/17 at 09:00 Metoclopramide HCl (Reglan Inj) 10 mg Q6HR IVS Last administered on 02/15/17 10:47; Start 02/13/17 at 18:00 Ondansetron HCl (Zofran Inj) 4 mg Q6H PRN IV NAUSEA; Start 02/13/17 at 17:00 Enalaprilat (Vasotec Inj) 1.25 mg Q4H PRN IV SYS BP GREATER THAN 160 MMHG; Start 02/13/17 at 17:00 Zolpidem Tartrate (Ambien) 5 mg HS PRN PO INSOMNIA; Start 02/13/17 at 17:00 Benzocaine/Menthol (Chloraseptic Ann) 1 lozenge UNSCH PRN BUCCAL SORE THROAT; Start 02/13/17 at 17:00 Furosemide 20 mg 20 mg Q12HR IV Last administered on 02/15/17 07:58; Start at 21:00; Stop 02/16/17 at 09:01 Potassium Chloride 100 ml @ 50 mls/hr UNSCH PRN IV POTASSIUM 3 TO 3.5; Start 02/13/17 at 17:00 Potassium Chloride (KCl 40 Meq Premix Inj) 100 ml @ 25 mls/hr UNSCH PRN IV POTASSIUM LESS THAN 3; Start 02/13/17 at 17:00 Heparin Sodium (Porcine) (Heparin Inj) 5,000 units Q8H SQ Last administered on 02/15/17 07:58; Start 02/14/17 at 16:00 Naloxone HCl (Narcan Inj) 0.4 mg UNSCH PRN IV RESPIRATORY RATE LESS THAN 10; Start 02/13/17 at 17:00 Morphine Sulfate (Morphine 1 Mg/ ml [employer]IN[employer] SYSTEM[employer] ENGINEER) 30 mg UNSCH IV Last administered on 18:33; Start 02/13/17 at 17:00 [employer]ER Dosage Infused (Pha) 1 Q8HR .XX Last administered on 02/15/17 06:00; Start 02/13/17 at 17:00 Midazolam HCl (Versed Inj) 2 mg STK-MED ONCE .ROUTE ; Start 02/13/17 at 17:10; Stop 02/13/17 at 17:11; Status DC Fentanyl Citrate (fentaNYL INJ) 250 mcg STK-MED ONCE .ROUTE ; Start 02/13/17 at 17:10; Stop 02/13/17 at 17:11; Status DC Morphine Sulfate (Morphine Inj) 8 mg STK-MED ONCE .ROUTE ; Start 02/13/17 at 17: 10; Stop 02/13/17 at 17:11; Status DC Miscellaneous Information ALL NURSING DEPARTME... UNSCH PRN .XX SEE LABEL COMMENTS; Start 02/13/17 at 18:00; Stop 02/14/17 at 17:59; Status DC Diphenhydramine HCl (Benadryl Inj) 50 mg STK-MED ONCE .ROUTE Last administered on 02/13/17 21:02; Start 02/13/17 at 21:02; Stop 02/13/17 at 21:03; Status DC Cefazolin Sodium (Ancef Inj) 1,000 mg STK-MED ONCE .ROUTE Last administered on 02/13/17 21:59; Start 02/13/17 at 21:59; Stop 02/13/17 at 22:00; Status DC Oxybenzone/ Padimate O/ Dimethicone (Blistex Lip Orient) 4.25 applic STK-MED ONCE TOPICAL Last administered on 02/14/17 08:34; Start 02/14/17 at 08:34; Stop at 08:35; Status DC A/P Assessment and Plan Abdominal pain, bilateral lower quadrants Chronic Diarrhea/fecal incontinence Wt loss Peritoneal carcinomatosis The patient was treated empirically with Flagyl 7 days prior to admission without improvement of her symptoms. C. difficile negative. - CT abd/pelvis showing prominence of the right renal pelvis and possible mild hydronephrosis with prominent soft tissue density at the UPJ, underlying neoplastic process should be excluded. Prominent anterior bladder wall thickening measuring 9 mm. Borderline prominent left ovary. -GI following. Status post colonoscopy. 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 The scope could not be passed. Biopsy was taken and pathology is pending. - Patient evaluated by colorectal surgery, she underwent exploratory laparotomy which revealed peritoneal carcinomatosis. Patient is status post diverting loop ileostomy. - Oncology following and awaiting pathology. Supratherapeutic INR, likely secondary to Flagyl. INR down to 1 - INR 12.3 on presentation. Status post vitamin K. Continue to hold Coumadin. On heparin for prophylaxis. Mild hydronephrosis with prominent soft tissue density at the UPJ Prominent bladder thickening -Appreciate urology following. Patient is status post Cystoscopy, right ureteroscopy with right double-J stent insertion - Voiding trial when more ambulatory per urology. Borderline prominence left ovary - Complaints of left lower quadrant pain - Pelvic ultrasound revealed a left ovarian cyst. Coronary artery disease Afib Previous [place] in 2011 with attempted but unsuccessful stent placement Hypertension Dyslipidemia - Resumed home metoprolol 25 mg by mouth twice a day - Resumed statin therapy - Clonidine prn with parameters - Monitor - Plan to resume Coumadin once cleared by colorectal surgery and urology. Pulmonary nodule: Discovered on abdominal CT. She does have a history of tobacco abuse. Chest CT obtained. Recommends follow-up noncontrast CT in 6 months. Hypothyroidism - Resumed home levothyroxine dose 88 MCG daily - TSH level ok DVT prophylaxis - SCDs. Moni Persaud MD Feb 15, 2017 11:30
[2017-02-15 12:00] VITALS: BP 147/67; PULSE 83; RESP 20; TEMP 97.8; O2SAT 94
[2017-02-15 16:00] VITALS: BP 117/61; PULSE 94; RESP 18; TEMP 98.7; O2SAT 91
[2017-02-15 20:00] VITALS: BP 128/66; PULSE 87; RESP 18; TEMP 98; O2SAT 93
[2017-02-15] MEDS: PRAVASTATIN SOD 80 MG TAB PO SCH (22:06)
[2017-02-16] VITALS: BP 118/68; PULSE 95; RESP 18; TEMP 96.6; O2SAT 93
[2017-02-16] MEDS: HEPARIN SODIUM - SQ 10,000 UNITS/ML VIAL SQ SCH ×4 (01:08→23:15)
[2017-02-16 04:00] VITALS: BP 130/72; PULSE 81; RESP 18; TEMP 96.6; O2SAT 97
[2017-02-16] MEDS: PCA - TOTAL MG MORPHINE DELIVERED PER SHIFT SCH ×3 (06:00→21:08)
[2017-02-16] MEDS: METOCLOPRAMIDE HCL 10 MG/2 ML VIAL IVS SCH ×5 (06:00→23:16)
[2017-02-16] MEDS: MESALAMINE HD 800 MG DELAYED RELEASE TAB PO SCH ×3 (06:43→21:08)
[2017-02-16] MEDS: LEVOTHYROXINE SODIUM 88 MCG TAB PO SCH (06:43)
--- NOTE | 2017-02-16 07:47 | MP ---
cc: DUARTE MONTIEL MD, SHAWN TOLLAND, JOHN T. M.D. PASRICHA, SUNIL P. M.D. 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 PROCEDURE 1. Flexible sigmoidoscopy with biopsies. 2. Gilmer-Cut needle biopsy of the rectum. 3. Exploratory laparotomy and biopsy of peritoneal nodules. 4. Diverting loop ileostomy. ANESTHESIA Endotracheal. SURGEON Dr. Barraza SHELLACKER Dr. Artemio Jones who will dictate his portion of the procedure consisting of cystoscopy and placement of right ureteral stent. BLOOD LOSS Minimal. ASCITES Approximately 2 liters. OPERATIVE FINDINGS This patient presented to the hospital with a 3-week history of abdominal pain, ongoing diarrhea, soft stools. This morning she was having liquid diarrheal stools. She was unable to have a colonoscopy several days ago by Dr. Villagomez due to obstruction of her rectum. On digital rectal exam she has a circumferential extrinsic mass of the lower rectum. On CT scan it was felt that she possibly had bladder wall thickening consistent with transitional cell carcinoma and she had a right hydronephrosis consistent with a right ureteral process. At surgery nothing was found in the bladder or the ureter. A right ureteral stent was placed by Dr. Jones and he will dictate his portion of the procedure. The patient did have a good bit of ascites on CT scan preoperatively and intraabdominally, probably 2 liters aspirated. She also had carcinomatosis with a frozen pelvis. I could not really identify the adnexa. I could see the fimbria but I could not really identify her ovaries due to the tumor in the pelvis which was obstructing the rectum. Also, her colon was stuck down laterally. She did have omental carcinomatosis as well as multiple peritoneal carcinomatoses throughout the whole abdomen. The liver was partially palpated and felt mildly nodular as well. Multiple peritoneal biopsies were taken from the mesentery for permanent section diagnosis. Because the colon was really not able to be mobilized and her small bowel was dilated as well, a diverting loop ileostomy was done. I attempted to decompress her small bowel through the ileostomy prior to closure as well as place a red rubber catheter distally through the ileostomy into the cecum but I could not get it to reach the cecum due to some carcinoma nodules and angulation. She appeared to have a competent ileocecal valve as the colon was a moderately distended on the right side in the transverse. OPERATIVE TECHNIQUE The patient was placed on the table in the supine position after adequate general tracheal anesthesia. The legs were placed in perineolithotomy position and the abdomen and perineum were prepped and draped in the usual manner. A flexible sigmoidoscopy was done prior to the prepping and draping and I was able to use a pediatric scope and go through the process, seeing colon with some stool present. It appeared mucosally is if it was normal but some biopsies were taken of the stricture. I then used a Gilmer-Cut needle biopsy and did a transrectal biopsy of the process taking a couple of passes with the Gilmer-Cut needle, getting carcinoma tissue. Once this was done, Dr. Jones did his portion of the cystoscopy and ureteroscopy and I proceeded with a laparotomy after prepping and draped in the usual manner. Midline incision was made from the pubis to just above the umbilicus, carried down through the linea alba and the peritoneal cavity was entered with the above-mentioned findings. 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 The small bowel mesentery and the parietal peritoneum was all covered with carcinomatosis nodules anywhere from 1-mm in size to 1 cm. She had a distal ileum group of metastases that were narrowing her distal ileum just above the ileocecal valve. For this reason an ileostomy was made proximal to this and it was made in an end-loop manner. A red rubber catheter was placed in the distal limb to try to decompress the cecum which we are able to do slightly by squeezing air back through the relatively competent ileocecal valve. The proximal small bowel was milked free of bilious fluid and air. A stoma site was then made in the right lower quadrant through the midportion of the rectus muscle and the ileal loop was cleared of its mesentery for a short distance with electrocautery and it was brought out through the right lower quadrant. The ileum antimesenteric border was incised and the air and fluid were milked from and it, as mentioned above. The red rubber was used to try to decompress the colon without too much success. Next, the bowels were placed in the abdominal cavity in an aerospace control and warning systems manner and then the abdominal cavity was closed in a single layer using a double-stranded #1 PDS. The subcutaneous tissue was irrigated thoroughly with 1 liter of saline solution and the skin was closed with skin theodore and the ileostomy was matured with interrupted 3-0 Vicryl sutures. A 57-mm appliance was placed. Sponge, needle and instrument counts were reported as correct. The estimated blood loss was minimal. The patient tolerated procedure well and left the operating room in good condition. MD NITA Balbuena/UTE /5:16 PM /7:30 AM
[2017-02-16 08:00] VITALS: BP 130/68; PULSE 81; RESP 17; TEMP 96.1; O2SAT 95
[2017-02-16] MEDS: PANTOPRAZOLE SODIUM 40 MG VIAL IVP SCH (08:10)
[2017-02-16] MEDS: FUROSEMIDE 20 MG/2 ML VIAL IV SCH (08:11)
[2017-02-16] MEDS: METOPROLOL TARTRATE 25 MG TAB PO SCH ×2 (08:11→21:08)
[2017-02-16] MEDS: NYSTATIN SUSP 500,000 U/5 ML CUP SWISH-SWAL SCH ×4 (08:11→21:08)
[2017-02-16] MEDS: ALVIMOPAN 12 MG CAPSULE PO SCH ×2 (08:11→21:08)
[2017-02-16] MEDS: SODIUM CHLORIDE 0.9% FLUSH 10 ML FLUSH IV FLUSH SCH ×2 (08:17→21:00)
--- NOTE | 2017-02-16 10:53 | HHI.PR ---
Subjective Remarks in no acute distress. pain is fairly controlled. afebrile. no nausea or vomiting. Objective Vitals Vital Signs Date Time Temp Pulse Resp B/P Pulse Ox O2 Delivery O2 Flow Rate FiO2 02/16/17 08:00 96.1 81 17 130/68 95 02/16/17 06:00 18 02/16/17 04:00 96.6 81 18 130/72 97 02/16/17 00:00 96.6 95 18 118/68 93 02/15/17 22:00 18 02/15/17 20:00 98.0 87 18 128/66 93 02/15/17 16:00 98.7 94 18 117/61 91 02/15/17 13:42 18 02/15/17 12:00 97.8 83 20 147/67 94 I/O 02/15/17 02/15/17 02/15/17 02/16/17 02/16/17 02/16/17 06:59 14:59 22:59 06:59 14:59 22:59 Intake Total 1018 ml 450 ml 1345 ml 745 ml Output Total 475 ml 3025 ml 1000 ml Balance 543 ml 450 ml -1680 ml -255 ml Intake Oral 0 ml 920 ml 320 ml IV Total 1018 ml 450 ml 425 ml 425 ml Output Urine Total 400 ml 2375 ml 800 ml Stool Total 650 ml 200 ml Drainage Total 75 ml Result Diagram: 02/15/17 0528 02/15/17 0528 Imaging Last Impressions Abdomen X-Ray 02/13/17 0000 Signed Impressions: Service Date/Time: Monday, February 13, 2017 17:34 - CONCLUSION: Gaseous distention. Right nephroureteral stent in good position. Leif Landa MD Chest CT 02/11/17 0000 Signed Impressions: Service Date/Time: Saturday, February 11, 2017 11:21 - CONCLUSION: Right middle lobe infiltrate and questionable tiny nodules bilaterally, repeat noncontrasted CT is suggested in 6 months as a conservative follow up. Navjot Jonas MD Abdomen/Pelvis CT 02/10/17 0000 Signed Impressions: Service Date/Time: Friday, February 10, 2017 17:23 - CONCLUSION: 1. Stable severe wall thickening of the entire rectum with induration of the fat in the mesial rectum. A malignancy or inflammatory process could both have this appearance. 2. There is a new fluid in the right and transverse colon possibly related to interval bowel prep. 3. Stable wall thickening of the anterior urinary bladder suspicious for a neoplastic process. 4. Stable severe right hydronephrosis with caliber change at the ureteropelvic junction. As described previously there is questionable thickening of the ureter in this area which could be related to a malignant process. 5. Persistent free fluid in the abdomen and pelvis with stranding in the omentum. 6. There is a 4 mm pulmonary nodule identified in the right lower lobe. Phoenix Pruitt MD Renal Ultrasound 02/07/17 0000 Signed Impressions: Service Date/Time: Tuesday, February 07, 2017 18:00 - CONCLUSION: Dilated right renal pelvis. The UPJ soft tissue lesion and bladder abnormality noted on the CT examination is not clearly evaluated on ultrasound. This would be best assessed with cystoscopy and ureteroscopy. Rafita Schilling MD Abdomen/Pelvis/Transvag US 02/07/17 0000 Signed Impressions: Service Date/Time: Tuesday, February 07, 2017 18:09 - CONCLUSION: 1. Cyst left ovary. 2. Right ovary not seen. 3. Small amount of free fluid in the pelvis. Rafita Schilling MD Objective Remarks GENERAL: This is a well-nourished, well-developed patient, in no apparent distress. CARDIOVASCULAR: Regular rate and regular rhythm without murmurs, gallops, or rubs. RESPIRATORY: Clear to auscultation. Breath sounds equal bilaterally. No wheezes , rales, or rhonchi. GASTROINTESTINAL: Abdomen soft, non-tender, nondistended. ileostomy in place. MUSCULOSKELETAL: Extremities without clubbing, cyanosis, or edema. NEURO: Alert & Oriented x4 to person, place, time, situation. Moves all ext x4 Medications and IVs Current Medications Phytonadione (Vitamin K Inj) 10 mg ONCE ONCE SQ Last administered on 14:37; Start 02/07/17 at 14:30; Stop 02/07/17 at 14:31; Status DC Iohexol (Omnipaque 350 Inj) 87 ml STK-MED ONCE IV Last administered on 15:35; Start 02/07/17 at 15:35; Stop 02/07/17 at 15:36; Status DC Sodium Chloride (NS Flush) 2 ml UNSCH PRN IV FLUSH FLUSH AFTER USING IV ACCESS ; Start 02/07/17 at 17:00; Stop 02/13/17 at 17:31; Status DC Sodium Chloride (NS Flush) 2 ml BID IV FLUSH Last administered on 02/13/17 08: 25; Start 02/07/17 at 21:00; Stop 02/13/17 at 17:31; Status DC Acetaminophen (Tylenol) 650 mg Q4H PRN PO TEMP > 100.4; Start 02/07/17 at 17:00 Ondansetron HCl (Zofran Inj) 4 mg Q6H PRN IVP NAUSEA OR VOMITING Last administered on 02/11/17 19:28; Start 02/07/17 at 17:00; Stop 02/13/17 at 17:32 ; Status DC Naloxone HCl (Narcan Inj) 0.4 mg UNSCH PRN IV SEE LABEL COMMENTS; Start at 17:00; Stop 02/13/17 at 17:22; Status DC Magnesium Hydroxide (Milk Of Magnesia Liq) 30 ml Q12H PRN PO MILD - MODERATE CONSTIPATION; Start 02/07/17 at 17:00 Sennosides (Senokot) 17.2 mg Q12H PRN PO MODERATE - SEVERE CONSTIPATION; Start 02/07/17 at 17:00 Bisacodyl (Dulcolax Supp) 10 mg DAILY PRN RECTAL SEVERE CONSITIPATION; Start at 17:00 Lactulose (Lactulose Liq) 30 ml DAILY PRN PO SEVERE CONSITIPATION; Start at 17:00 Levothyroxine Sodium (Synthroid) 88 mcg DAILY@06 PO Last administered on 06:43; Start 02/08/17 at 06:00 Metoprolol Tartrate (Lopressor) 25 mg BID PO Last administered on 02/16/17 08: 11; Start 02/07/17 at 21:00 Pravastatin Sodium (Pravachol) 80 mg HS PO Last administered on 02/15/17 22:06 ; Start 02/07/17 at 21:00 Acetaminophen/ Hydrocodone Bitart ([place] 5-325 Mg) 1 tab Q4H PRN PO PAIN SCALE 1 TO 5 Last administered on 02/13/17 04:59; Start 02/07/17 at 18:00; Stop 02/13/17 at 17:29; Status DC Acetaminophen/ Hydrocodone Bitart ([place] 10-325 Mg) 1 tab Q4H PRN PO PAIN SCALE 6 TO 10 Last administered on 02/10/17 20:18; Start 02/07/17 at 18:00; Stop 02/13/17 at 17:30; Status DC Clonidine 0.1 mg 0.1 mg Q6H PRN PO SBP>180, DBP>95; Start 02/07/17 at 18:15 Sodium Chloride 500 ml @ 50 mls/hr Q10H IV Last administered on 02/07/17 20: 33; Start 02/07/17 at 18:15; Stop 02/08/17 at 04:14; Status DC Potassium Chloride/Dextrose/ Sod Cl (D5-1/2 NS + KCl 10 Meq Inj) 1,000 ml @ 125 mls/hr Q8H IV Last administered on 02/12/17 05:07; Start 02/08/17 at 16:00 ; Stop 02/12/17 at 13:27; Status DC Cholestyramine Resin (Questran 4 Gm Pkt) 4 gm Q12HR PO Last administered on 08:28; Start 02/08/17 at 21:00; Status Hold Polyethylene Glycol/ Electrolytes (Colyte Liq) 4,000 ml ONCE ONCE PO Last administered on 02/09/17 17:30; Start 02/09/17 at 17:30; Stop 02/09/17 at 17:31 ; Status DC Propofol (Diprivan 200 Mg/20 ml Inj) 200 mg STK-MED ONCE IV PUSH ; Start at 14:29; Stop 02/10/17 at 14:30; Status DC Simethicone (Simethicone Liq (Drops)) 2,000 mg STK-MED ONCE PO Last administered on 02/10/17 14:50; Start 02/10/17 at 14:50; Stop 02/10/17 at 14:58 ; Status DC Flumazenil (Romazicon Inj) 0.2 mg UNSCH X1 PRN IV OVERSEDATION; Start 02/10/17 at 15:00; Stop 02/11/17 at 14:59; Status DC Flumazenil (Romazicon Inj) 0.2 mg Q1M PRN IV OVERSEDATION; Start 02/10/17 at 15 :00; Stop 02/11/17 at 14:59; Status DC Naloxone HCl (Narcan Inj) 0.1 mg Q2M PRN IV OVERSEDATION; Start 02/10/17 at 15: 00; Stop 02/11/17 at 14:59; Status DC Diatrizoate Meglum/ Diatrizoate Sod ( Gastroview Liq) 18 ml ONCE ONCE PO Last administered on 02/10/17 15:42; Start 02/10/17 at 15:15; Stop 02/10/17 at 15:16; Status DC Morphine Sulfate (Morphine Inj) 4 mg ONCE STAT IV PUSH Last administered on 16:33; Start 02/10/17 at 15:47; Stop 02/10/17 at 15:58; Status DC Morphine Sulfate (Morphine Inj) 2 mg Q3H PRN IV PUSH BREAKTHROUGH PAIN; Start 02/10/17 at 16:00; Stop 02/13/17 at 17:39; Status DC Iohexol (Omnipaque 350 Inj) 95 ml STK-MED ONCE IV Last administered on 17:27; Start 02/10/17 at 17:27; Stop 02/10/17 at 17:28; Status DC Mesalamine (Asacol Hd Dr) 1,600 mg Q8HR PO Last administered on 02/16/17 06:43 ; Start 02/10/17 at 22:00 Nystatin (Mycostatin Liq) 5 ml QID SWISH-SWAL Last administered on 02/16/17 08:11; Start 02/11/17 at 10:28 Enoxaparin Sodium 40 mg 40 mg Q24H SQ Last administered on 02/12/17 12:52; Start 02/11/17 at 11:00; Stop 02/12/17 at 17:16; Status DC Potassium Chloride/Dextrose/ Sod Cl 1,000 ml @ 100 mls/hr Q10H IV Last administered on 02/13/17 05:02; Start 02/12/17 at 12:30; Stop 02/13/17 at 17:20 ; Status DC Cefazolin Sodium/ Dextrose 50 ml @ 100 mls/hr FOOD TESTER IV Last administered on 02/13/17t 14:46; Start 02/12/17 at 16:15; Stop 02/16/17 at 16:14 Lactated Ringer's 1,000 ml @ 30 mls/hr Q24H PRN IV SEE LABEL COMMENTS; Start at 02:00; Stop 02/16/17 at 01:59; Status DC Sodium Chloride (NS 500 ml Inj) 500 ml @ 30 mls/hr [id number] PRN IV SEE LABEL COMMENTS; Start 02/13/17 at 02:00; Stop 02/16/17 at 01:59; Status DC Povidone Iodine (Betadine 5% Antisepsis Kit) 1 applic FOOD TESTER PRN EACH NARE SEE LABEL COMMENTS; Start 02/13/17 at 02:00; Stop 02/16/17 at 01:59; Status DC Chlorhexidine Gluconate (Chlorhexidine 2% Cloth) 3 pack FOOD TESTER PRN TOPICAL SEE LABEL COMMENTS; Start 02/13/17 at 02:00; Stop 02/16/17 at 01:59; Status DC Insulin Human Regular (NovoLIN R INJ) See Protocol Table ... FOOD TESTER PRN SQ SEE PROTOCOL TABLE; Start 02/13/17 at 02:00; Stop 02/16/17 at 01:59; Status DC Sugammadex Sodium (Bridion Inj) 200 mg STK-MED ONCE IV PUSH ; Start 02/13/17 at 14:15; Stop 02/13/17 at 14:16; Status DC Acetaminophen (Ofirmev Inj) 1,000 mg STK-MED ONCE IV ; Start 02/13/17 at 14:16; Stop 02/13/17 at 14:17; Status DC Dexamethasone Sodium Phosphate (Decadron Inj) 4 mg STK-MED ONCE .ROUTE ; Start 02/13/17 at 14:16; Stop 02/13/17 at 14:17; Status DC Famotidine (Pepcid Inj) 20 mg STK-MED ONCE .ROUTE ; Start 02/13/17 at 14:16; Stop 02/13/17 at 14:17; Status DC Bupivacaine HCl/ Epinephrine Bitart (Sensorcaine-Epi 0.5% 50 ml Inj) 50 ml STK- MED ONCE .ROUTE ; Start 02/13/17 at 14:28; Stop 02/13/17 at 14:29; Status DC Lidocaine/ Epinephrine 50 ml 50 ml STK-MED ONCE .ROUTE ; Start 02/13/17 at 14:29 ; Stop 02/13/17 at 14:30; Status DC Potassium Cl/ Dextrose/Lact Ringer's (D5-Lr + KCl 20 Meq Inj) 1,000 ml @ 50 mls /hr Q20H IV Last administered on 02/15/17 13:38; Start 02/13/17 at 18:00 Sodium Chloride (NS Flush) 2 ml UNSCH PRN IV FLUSH FLUSH AFTER USING IV ACCESS ; Start 02/13/17 at 17:00 Sodium Chloride 2 ml 2 ml BID IV FLUSH Last administered on 02/14/17 09:00; Start 02/13/17 at 21:00 Cefazolin Sodium/ Dextrose 50 ml @ 100 mls/hr Q8H IV Last administered on 02/14 14:00; Start 02/13/17 at 22:00; Stop 02/14/17 at 14:29; Status DC Metronidazole (Flagyl 500 Mg Inj) 100 ml @ 200 mls/hr Q8H IV ; Start 02/13/17 at 17:00; Stop 02/13/17 at 19:16; Status DC Miscellaneous Information (Post-op Orders (for Pharmacy)) STAT ONCE XX ; Start 02/13/17 at 17:00; Stop 02/13/17 at 17:33; Status DC Acetaminophen/ Hydrocodone Bitart ([place] 5-325 Mg) 1 tab Q4H PRN PO PAIN SCALE 1 TO 4; Start 02/13/17 at 17:00 Acetaminophen/ Hydrocodone Bitart ([place] 5-325 Mg) 2 tab Q4H PRN PO PAIN SCALE 5 TO 10; Start 02/13/17 at 17:00 Ketorolac Tromethamine (Toradol Inj) 15 mg Q6H PRN IVP BREAKTHROUGH PAIN; Start 02/13/17 at 17:00; Stop 02/16/17 at 16:59 Alvimopan (Entereg) 12 mg BID PO Last administered on 02/16/17 08:11; Start at 09:00; Stop 02/20/17 at 21:01 Pantoprazole Sodium (Protonix Inj) 40 mg DAILY IVP Last administered on 08:10; Start 02/14/17 at 09:00 Metoclopramide HCl (Reglan Inj) 10 mg Q6HR IVS Last administered on 02/15/17 16:50; Start 02/13/17 at 18:00 Ondansetron HCl (Zofran Inj) 4 mg Q6H PRN IV NAUSEA; Start 02/13/17 at 17:00 Enalaprilat (Vasotec Inj) 1.25 mg Q4H PRN IV SYS BP GREATER THAN 160 MMHG; Start 02/13/17 at 17:00 Zolpidem Tartrate (Ambien) 5 mg HS PRN PO INSOMNIA; Start 02/13/17 at 17:00 Benzocaine/Menthol (Chloraseptic Nan) 1 lozenge UNSCH PRN BUCCAL SORE THROAT; Start 02/13/17 at 17:00 Furosemide 20 mg 20 mg Q12HR IV Last administered on 02/16/17 08:11; Start at 21:00; Stop 02/16/17 at 09:02; Status DC Potassium Chloride 100 ml @ 50 mls/hr UNSCH PRN IV POTASSIUM 3 TO 3.5; Start 02/13/17 at 17:00 Potassium Chloride (KCl 40 Meq Premix Inj) 100 ml @ 25 mls/hr UNSCH PRN IV POTASSIUM LESS THAN 3; Start 02/13/17 at 17:00 Heparin Sodium (Porcine) (Heparin Inj) 5,000 units Q8H SQ Last administered on 02/16/17 08:11; Start 02/14/17 at 16:00 Naloxone HCl (Narcan Inj) 0.4 mg UNSCH PRN IV RESPIRATORY RATE LESS THAN 10; Start 02/13/17 at 17:00 Morphine Sulfate (Morphine 1 Mg/ ml LEAD INSTALLER) 30 mg UNSCH IV Last administered on 18:33; Start 02/13/17 at 17:00 LEAD INSTALLER Dosage Infused (Pha) 1 Q8HR .XX Last administered on 02/16/17 06:00; Start 02/13/17 at 17:00 Midazolam HCl (Versed Inj) 2 mg STK-MED ONCE .ROUTE ; Start 02/13/17 at 17:10; Stop 02/13/17 at 17:11; Status DC Fentanyl Citrate (fentaNYL INJ) 250 mcg STK-MED ONCE .ROUTE ; Start 02/13/17 at 17:10; Stop 02/13/17 at 17:11; Status DC Morphine Sulfate (Morphine Inj) 8 mg STK-MED ONCE .ROUTE ; Start 02/13/17 at 17: 10; Stop 02/13/17 at 17:11; Status DC Miscellaneous Information ALL NURSING DEPARTME... UNSCH PRN .XX SEE LABEL COMMENTS; Start 02/13/17 at 18:00; Stop 02/14/17 at 17:59; Status DC Diphenhydramine HCl (Benadryl Inj) 50 mg STK-MED ONCE .ROUTE Last administered on 02/13/17 21:02; Start 02/13/17 at 21:02; Stop 02/13/17 at 21:03; Status DC Cefazolin Sodium (Ancef Inj) 1,000 mg STK-MED ONCE .ROUTE Last administered on 02/13/17 21:59; Start 02/13/17 at 21:59; Stop 02/13/17 at 22:00; Status DC Oxybenzone/ Padimate O/ Dimethicone (Blistex Lip [place]) 4.25 applic STK-MED ONCE TOPICAL Last administered on 02/14/17 08:34; Start 02/14/17 at 08:34; Stop at 08:35; Status DC A/P Assessment and Plan A/P Abdominal pain, bilateral lower quadrants Chronic Diarrhea/fecal incontinence Wt loss Peritoneal carcinomatosis The patient was treated empirically with Flagyl 7 days prior to admission without improvement of her symptoms. C. difficile negative. - CT abd/pelvis showing prominence of the right renal pelvis and possible mild hydronephrosis with prominent soft tissue density at the UPJ, underlying neoplastic process should be excluded. Prominent anterior bladder wall thickening measuring 9 mm. Borderline prominent left ovary. -GI following. Status post colonoscopy. 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 The scope could not be passed. Biopsy was taken and pathology is pending. - Patient evaluated by colorectal surgery, she underwent exploratory laparotomy which revealed peritoneal carcinomatosis. Patient is status post diverting loop ileostomy. - Oncology following and awaiting pathology. Supratherapeutic INR, likely secondary to Flagyl. INR down to 1 - INR 12.3 on presentation. Status post vitamin K. Continue to hold Coumadin. On heparin for prophylaxis. Mild hydronephrosis with prominent soft tissue density at the UPJ Prominent bladder thickening -Appreciate urology following. Patient is status post Cystoscopy, right ureteroscopy with right double-J stent insertion - Voiding trial when more ambulatory per urology. Borderline prominence left ovary - Complaints of left lower quadrant pain - Pelvic ultrasound revealed a left ovarian cyst. Coronary artery disease Afib Previous CA in 2011 with attempted but unsuccessful stent placement Hypertension Dyslipidemia - Resumed home metoprolol 25 mg by mouth twice a day - Resumed statin therapy - Clonidine prn with parameters - Monitor - Plan to resume Coumadin once cleared by colorectal surgery and urology. Pulmonary nodule: Discovered on abdominal CT. She does have a history of tobacco abuse. Chest CT obtained. Recommends follow-up noncontrast CT in 6 months. Hypothyroidism - Resumed home levothyroxine dose 88 MCG daily - TSH level ok DVT prophylaxis - SCDs. Moni Persaud MD Feb 16, 2017 10:53
[2017-02-16 12:00] VITALS: BP 129/64; PULSE 80; RESP 16; TEMP 95.8; O2SAT 95
--- NOTE | 2017-02-16 12:30 | HHI.PR ---
Subjective Patient symptoms today Pt seen and examined. Pain controlled and ambulating. Objective Vital Signs Vital Signs Date Time Temp Pulse Resp B/P Pulse Ox O2 Delivery O2 Flow Rate FiO2 02/16/17 08:00 96.1 81 17 130/68 95 02/16/17 06:00 18 02/16/17 04:00 96.6 81 18 130/72 97 02/16/17 00:00 96.6 95 18 118/68 93 02/15/17 22:00 18 02/15/17 20:00 98.0 87 18 128/66 93 02/15/17 16:00 98.7 94 18 117/61 91 02/15/17 13:42 18 Intake & Output 02/16/17 02/16/17 07:00 19:00 Intake Total 1490 ml Output Total 1725 ml Balance -235 ml Intake Oral 640 ml IV Total 850 ml Output Urine Total 1225 ml Stool Total 500 ml Result Diagram: 02/15/1728 02/15/17527 Objective Remarks Abd:soft, tendness with palpation Neg CVAT Ext: neg C/C/E 02/13 Abd:soft, tendness with palpation Neg CVAT Ext: neg C/C/E 02/14 Abd: abdominal binder in place Perdomo with clear urine 02/15 Abd: abdominal binder in place Perdomo with clear urine 02/16 Abd: abdominal binder in place Perdomo out and voiding Medications and IVs Current Medications Medications (Trade) Dose Ordered Sig/Trina Route Start Time Stop Time Status Last Admin (Tylenol) 650 mg Q4H PRN PO 02/07/17 17:00 (Milk Of Magnesia Liq) 30 ml Q12H PRN PO 02/07/17 17:00 (Senokot) 17.2 mg Q12H PRN PO 02/07/17 17:00 (Dulcolax Supp) 10 mg DAILY PRN RECTAL 02/07/17 17:00 (Lactulose Liq) 30 ml DAILY PRN PO 02/07/17 17:00 (Synthroid) 88 mcg DAILY@06 PO 02/08/17 06:00 02/16/17 06:43 (Lopressor) 25 mg BID PO 02/07/17 21:00 02/16/17 08:11 (Pravachol) 80 mg HS PO 02/07/17 21:00 02/15/17 22:06 (Catapres) 0.1 mg Q6H PRN PO 02/07/17 18:15 (Questran 4 Gm Pkt) 4 gm Q12HR PO 02/08/17 21:00 Hold 02/09/17 08:28 (Asacol Hd [address]) 1,600 mg Q8HR PO 02/10/17 22:00 02/16/17 06:43 Nystatin 5 ml 5 ml QID SWISH-SWAL 02/11/17 10:28 02/16/17 08:11 (D5-Lr + KCl 20 Meq Inj) 1,000 ml @ 50 mls/hr Q20H IV 02/13/17 18:00 02/15/17 13:38 (NS Flush) 2 ml UNSCH PRN IV FLUSH 02/13/17 17:00 (NS Flush) 2 ml BID IV FLUSH 02/13/17 21:00 02/14/17 09:00 ([place] 5-325 Mg) 1 tab Q4H PRN PO 02/13/17 17:00 ([place] 5-325 Mg) 2 tab Q4H PRN PO 02/13/17 17:00 (Toradol Inj) 15 mg Q6H PRN IVP 02/13/17 17:00 02/16/17 16:59 (Entereg) 12 mg BID PO 02/14/17 09:00 02/20/17 21:01 02/16/17 08:11 (Protonix Inj) 40 mg DAILY IVP 02/14/17 09:00 02/16/17 08:10 (Reglan Inj) 10 mg Q6HR IVS 02/13/17 18:00 02/15/17 16:50 (Zofran Inj) 4 mg Q6H PRN IV 02/13/17 17:00 (Vasotec Inj) 1.25 mg Q4H PRN IV 02/13/17 17:00 (Ambien) 5 mg HS PRN PO 02/13/17 17:00 Benzocaine/ Menthol 1 lozenge 1 lozenge UNSCH PRN BUCCAL 02/13/17 17:00 Potassium Chloride 100 ml @ 50 mls/hr UNSCH PRN IV 02/13/17 17:00 (KCl 40 Meq Premix Inj) 100 ml @ 25 mls/hr UNSCH PRN IV 02/13/17 17:00 (Heparin Inj) 5,000 units Q8H SQ 02/14/17 16:00 02/16/17 08:11 (Narcan Inj) 0.4 mg UNSCH PRN IV 02/13/17 17:00 (Morphine 1 Mg/ ml PHYSIOLOGICAL CHEMIST) 30 mg UNSCH IV 02/13/17 17:00 02/14/17 18:33 PHYSIOLOGICAL CHEMIST Dosage Infused (Pha) 1 Q8HR .XX 02/13/17 17:00 02/16/17 06:00 Assessment and Plan Assessment and Plan 66 y.o female admitted with abdominal pain and diarrhea super therapeutic on Warfarin. INR at 3.5 Right hydronephrosis with bladder wall thickening noted on recent CT scan. Will need cysto with right URS after diarrhea, abdominal pain and over coagulation resolves 02/13 66 y.o female with right hydronephrosis and possible proximal ureteral mass on CT scan Pt for colostomy today per Dr. Sams Will perform cystoscopy/Right URS with possible ureteral biopsy with right JJ stent insertion Risks and benefits discussed and the patient is willing to proceed. 02/14 66 y.o female s/p ex-lap with ileostomy and cysto with left JJ stent insertion Maintain perdomo catheter for now. Void trial once ambulating. Check path 02/15 66 y.o female s/p ex-lap with ileostomy and cysto with left JJ stent insertion Maintain perdomo catheter for now. Void trial in AM Path pending 02/16 66 y.o female s/p ex-lap with ileostomy and cysto with left JJ stent insertion Perdomo out and voiding Urine cytology was negative Path pending Continue OOB D/C PHYSIOLOGICAL CHEMIST per Colorectal Artemio Jones DO Feb 16, 2017 12:30
[2017-02-16] MEDS: D5-LR + KCL 20 MEQ INJ 1,000 ML IV SCH (13:12)
--- NOTE | 2017-02-16 14:54 | PD.WCN.NOT ---
Wound Consult Description: Consult for NEW OSTOMY TEACHING for RLQ ileostomy Communicated with: Patient CARMELO Hood Recommendation: Encourage patient to practice emptying pouch when 1/3-1/2 full Additional Information: Patient educated on the need for increased fluids with an ileostomy. Ostomy Type: Ileostomy Surgeon: Phoenix Barraza MD Date of Surgery: Feb 13, 2017 Complete: Starter kit, Education materials Educated patient on: Drinking adequate fluids, releasing air from pouch, and emptying pouch. Additional information Patient seen on for education regarding new, temporary, ileostomy on right lower quadrant. Patient states the entire appliance was changed this morning. Stoma was visualized and noted to be moderately protruding, round, red , moist, smooth, and budded. Ileostomy is functioning with minimal brown liquid effluent with milky white and red particles noted to pouch. Stoma is measuring ~ 30mm. Patient is tender and since appliance was just replaced this morning it was not removed to visualize peristomal skin and mucocutaneous junction. 57mm 2 piece drainable pouch is noted in place without leaks. Demonstrated how to release air from pouch. Patient was given an ileostomy kit with one barrier and flange, 2 drainable pouches, and material regarding new ileostomies. Patient had questions regarding surgery and how often the appliance needed to be changed. All questions were answered. Encouraged patient to empty pouch when 1/3 -1/2 full. It was explained to patient why she needs to drink more fluids with an ileostomy. Will follow up on patient tomorrow for teaching/demonstration of emptying pouch and removing pouch. Dolores Waddell [facility] Feb 16, 2017 14:54
[2017-02-16 16:00] VITALS: BP 143/75; PULSE 103; RESP 18; TEMP 96.9; O2SAT 93
--- NOTE | 2017-02-16 18:04 | HHI.PR ---
Subjective Remarks No Nor V. Discussed finding of peritoneal carcinomatosis. Oncology has seen patient.Path with poorly diff small cell. Objective Vital Signs Date Time Temp Pulse Resp B/P Pulse Ox O2 Delivery O2 Flow Rate FiO2 02/16/17 16:00 96.9 103 18 143/75 93 02/16/17 14:00 18 02/16/17 12:00 95.8 80 16 129/64 95 02/16/17 08:00 96.1 81 17 130/68 95 02/16/17 06:00 18 02/16/17 04:00 96.6 81 18 130/72 97 02/16/17 00:00 96.6 95 18 118/68 93 02/15/17 22:00 18 02/15/17 20:00 98.0 87 18 128/66 93 I/O 02/15/17 02/15/17 02/15/17 02/16/17 02/16/17 02/16/17 06:59 14:59 22:59 06:59 14:59 22:59 Intake Total 1018 ml 450 ml 1345 ml 745 ml 625 ml Output Total 475 ml 3025 ml 1000 ml 425 ml 200 ml Balance 543 ml 450 ml -1680 ml -255 ml 200 ml -200 ml Intake Oral 0 ml 920 ml 320 ml 275 ml IV Total 1018 ml 450 ml 425 ml 425 ml 350 ml Output Urine Total 400 ml 2375 ml 800 ml 425 ml Stool Total 650 ml 200 ml 0 ml 200 ml Drainage Total 75 ml # Bowel Movements 2 Result Diagram: 02/15/1728 02/15/17527 Objective Remarks VS-S Abd: Less distended, Ileostomy pink,stooling from rectum Labs-OK except CA 125 markedly elevated I&Os-OK Assessment and Plan Assessment and Plan Stable POD#3. Probable extensive Ovarian Cancer given Ca 125 elevation. Ileostomy was done because of significant distal Ileal carcinoma and possible pending obstruction. Plan: Start reg diet. Ambulate.Wants rehab on D/C Phoenix Barraza MD Feb 16, 2017 18:04
[2017-02-16 20:05] VITALS: BP 126/75; PULSE 85; RESP 18; TEMP 98.1; O2SAT 97
[2017-02-16] MEDS: PRAVASTATIN SOD 80 MG TAB PO SCH (21:08)
[2017-02-16] MEDS: MORPHINE SULFATE 30 MG/30 ML PCA IV SCH (23:18)
[2017-02-17 00:10] VITALS: BP 140/69; PULSE 94; RESP 16; TEMP 97.6; O2SAT 94
[2017-02-17 04:16] VITALS: BP 132/71; PULSE 90; RESP 16; TEMP 97.8; O2SAT 93
[2017-02-17] MEDS: LEVOTHYROXINE SODIUM 88 MCG TAB PO SCH (05:16)
[2017-02-17] MEDS: MESALAMINE HD 800 MG DELAYED RELEASE TAB PO SCH ×3 (05:16→21:58)
[2017-02-17] MEDS: METOCLOPRAMIDE HCL 10 MG/2 ML VIAL IVS SCH ×4 (05:16→23:08)
[2017-02-17] MEDS: PCA - TOTAL MG MORPHINE DELIVERED PER SHIFT SCH (05:17)
[2017-02-17] MEDS: D5-LR + KCL 20 MEQ INJ 1,000 ML IV SCH (05:20)
[2017-02-17 08:00] VITALS: BP 122/64; PULSE 81; RESP 17; TEMP 96.2; O2SAT 96
[2017-02-17] MEDS: SODIUM CHLORIDE 0.9% FLUSH 10 ML FLUSH IV FLUSH SCH ×2 (09:00→21:59)
[2017-02-17] MEDS: ALVIMOPAN 12 MG CAPSULE PO SCH ×2 (09:06→21:58)
[2017-02-17] MEDS: NYSTATIN SUSP 500,000 U/5 ML CUP SWISH-SWAL SCH ×4 (09:06→21:58)
[2017-02-17] MEDS: METOPROLOL TARTRATE 25 MG TAB PO SCH ×2 (09:10→21:58)
[2017-02-17] MEDS: PANTOPRAZOLE SODIUM 40 MG VIAL IVP SCH (09:12)
[2017-02-17] MEDS: HEPARIN SODIUM - SQ 10,000 UNITS/ML VIAL SQ SCH ×3 (09:12→23:08)
--- NOTE | 2017-02-17 09:41 | PD.ONC.PN ---
Subjective Subjective Remarks Afebrile overnight. Patient resting in room in nad. Had pain pump turned off this morning, is going to switch to PO pain medication. Objective Data Date Time Temp Pulse Resp B/P Pulse Ox O2 Delivery O2 Flow Rate FiO2 02/17/17 08:00 96.2 81 17 122/64 96 02/17/17 05:17 20 02/17/17 04:16 97.8 90 16 132/71 93 02/17/17 00:10 97.6 94 16 140/69 94 02/16/17 23:18 18 02/16/17 21:08 18 02/16/17 20:05 98.1 85 18 126/75 97 02/16/17 16:00 96.9 103 18 143/75 93 02/16/17 14:00 18 02/16/17 12:00 95.8 80 16 129/64 95 02/17/17 02/17/17 02/17/17 07:00 15:00 23:00 Intake Total 747 ml Balance 747 ml Result Diagram: 02/15/1752702/15/17527 Administered Medications Medications (Trade) Dose Ordered Sig/Trina Route PRN Reason Start Time Stop Time Status Last Admin Dose Admin Levothyroxine Sodium (Synthroid) 88 mcg DAILY@06 PO 02/08/17 06:00 02/17/17 05:16 Metoprolol Tartrate (Lopressor) 25 mg BID PO 02/07/17 21:00 02/17/17 09:10 Pravastatin Sodium (Pravachol) 80 mg HS PO 02/07/17 21:00 02/16/17 21:08 Cholestyramine Resin (Questran 4 Gm Pkt) 4 gm Q12HR PO 02/08/17 21:00 Hold 02/09/17 08:28 Mesalamine (Asacol Hd Dr) 1,600 mg Q8HR PO 02/10/17 22:00 02/17/17 05:16 Nystatin 5 ml 5 ml QID SWISH-SWAL 02/11/17 10:28 02/17/17 09:06 Potassium Cl/ Dextrose/Lact Ringer's (D5-Lr + KCl 20 Meq Inj) 1,000 ml @ 50 mls/hr Q20H IV 02/13/17 18:00 02/16/17 13:12 Sodium Chloride (NS Flush) 2 ml BID IV FLUSH 02/13/17 21:00 02/14/17 09:00 Acetaminophen/ Hydrocodone Bitart (Aspen 5-325 Mg) 2 tab Q4H PRN PO PAIN SCALE 5 TO 10 02/13/17 17:00 02/17/17 09:06 Alvimopan (Entereg) 12 mg BID PO 02/14/17 09:00 02/20/17 21:01 02/17/17 09:06 Pantoprazole Sodium (Protonix Inj) 40 mg DAILY IVP 02/14/17 09:00 02/17/17 09:12 Metoclopramide HCl (Reglan Inj) 10 mg Q6HR IVS 02/13/17 18:00 02/17/17 09:11 Ondansetron HCl (Zofran Inj) 4 mg Q6H PRN IV NAUSEA 02/13/17 17:00 02/16/17 21:08 Heparin Sodium (Porcine) (Heparin Inj) 5,000 units Q8H SQ 02/14/17 16:00 02/17/17 09:12 Objective Remarks GENERAL: Middle aged female sitting up in chair next to bed in [facility]. SKIN: Warm and dry. HEAD: Normocephalic. EYES: No injection or drainage. NECK: Supple, trachea midline. CARDIOVASCULAR: Regular rate and rhythm RESPIRATORY: Breath sounds equal bilaterally. No accessory muscle use. GASTROINTESTINAL: Abdomen firm, distended, tender to palpation. +ileostomy pouch EXTREMITIES: No cyanosis NEUROLOGICAL: awake and alert, normal speech. Assessment/Plan Problem List: (1) Peritoneal carcinomatosis Status: Acute Plan: --pathology consistent with primary peritoneal carcinomatosis. --started having abdominal pain and diarrhea a month ago. She had lost about 11 pounds. --colonoscopy in March 2016 was benign. had an attempt at colonoscopy again during this hospital stay but was noted to have rectal sigmoid stenosis and colonoscopy was incomplete. --CT abdomen and pelvis which showed thickening of the entire rectum. + thickening of bladder wall and severe right hydronephrosis at the UPJ. --exploratory laparotomy 02/13 showed peritoneal carcinomatosis causing frozen pelvis and rectal obstruction. ++diverting ileostomy. --CA19-9 is normal. --CA-125 slightly elevated at 114. --Ultrasound of the pelvis showed left ovarian cyst. The right ovary is not visible. --CT chest showed nonspecific tiny pulmonary nodules bilaterally. The biopsy of the mesenteric nodule is pending at this time. could be primary peritoneal carcinomatosis versus metastatic carcinomatosis. --just had a mammogram done around June which was reportedly unremarkable. also had a Pap smear done around that time which reportedly also was unremarkable. -- will consult Dr. Jeter to see if this could be a primary BINGO MANAGER malignancy. --Nonspecific pulmonary nodule noted on CT scan. She had tiny bilateral nodules. Metastatic disease cannot be totally ruled out. will need to be monitored. (2) Bladder wall thickening Status: Acute Plan: --Thickening of the bladder wall and right hydronephrosis on CT scan. She had a cystoscopy which did not show any bladder tumor. There was also no tumor noted in the UPJ. She is status post stent placement. Assessment 66y/o female with peritoneal carcinomatosis. h/o Coronary artery disease, status post myocardial infarction in 2011. Hypertension. Hyperlipidemia. Hypothyroidism. Colonoscopy in March 2016. Varicose veins surgery. Hemorrhoidectomy. Sinus surgery. Plan 1. pathology consistent with primary peritoneal carcinomatosis. 2. will consult palliative care for goals of care. Attending Statement The exam, history, and the medical decision-making described in the above note were completed with the assistance of the mid-level provider. I reviewed and agree with the findings presented. 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 Does not appear to be mesothelioma. Reviewed path with patient. I told her treatment involves systemic chemotherapy and I doubt that her disease is curable. We discussed the pros and cons of chemotherapy and potential side effects. If she is going to have chemotherapy, will need port placement for chemotherapy administration. Patient lives alone and has no relative in the area. She is not sure what she wants to do at this time. Will consult palliative care meds to assist her. I have also discussed with and he will see her next week or outpatient if pt is discharged. Danna Martin Feb 17, 2017 09:40 Esteban Leigh MD Feb 17, 2017 15:14
--- NOTE | 2017-02-17 10:51 | HHI.PR ---
Subjective Remarks in no acute distress. has mild abdominal discomfort. no nausea or vomiting. afebrile. Objective Vitals Vital Signs Date Time Temp Pulse Resp B/P Pulse Ox O2 Delivery O2 Flow Rate FiO2 02/17/17 08:00 96.2 81 17 122/64 96 02/17/17 05:17 20 02/17/17 04:16 97.8 90 16 132/71 93 02/17/17 00:10 97.6 94 16 140/69 94 02/16/17 23:18 18 02/16/17 21:08 18 02/16/17 20:05 98.1 85 18 126/75 97 02/16/17 16:00 96.9 103 18 143/75 93 02/16/17 14:00 18 02/16/17 12:00 95.8 80 16 129/64 95 I/O 02/16/17 02/16/17 02/16/17 02/17/17 02/17/17 02/17/17 07:00 15:00 23:00 07:00 15:00 23:00 Intake Total 745 ml 1005 ml 380 ml 747 ml Output Total 1000 ml 425 ml 800 ml Balance -255 ml 580 ml -420 ml 747 ml Intake Oral 320 ml 275 ml 380 ml IV Total 425 ml 730 ml 747 ml Output Urine Total 800 ml 425 ml 400 ml Stool Total 200 ml 0 ml 400 ml # Bowel Movements 2 Result Diagram: 02/15/17 0528 02/15/17 0528 Imaging Last Impressions Abdomen X-Ray 02/13/17 0000 Signed Impressions: Service Date/Time: Monday, February 13, 2017 17:34 - CONCLUSION: Gaseous distention. Right nephroureteral stent in good position. Leif Landa MD Chest CT 02/11/17 0000 Signed Impressions: Service Date/Time: Saturday, February 11, 2017 11:21 - CONCLUSION: Right middle lobe infiltrate and questionable tiny nodules bilaterally, repeat noncontrasted CT is suggested in 6 months as a conservative follow up. Navjot Jonas MD Abdomen/Pelvis CT 02/10/17 0000 Signed Impressions: Service Date/Time: Friday, February 10, 2017 17:23 - CONCLUSION: 1. Stable severe wall thickening of the entire rectum with induration of the fat in the mesial rectum. A malignancy or inflammatory process could both have this appearance. 2. There is a new fluid in the right and transverse colon possibly related to interval bowel prep. 3. Stable wall thickening of the anterior urinary bladder suspicious for a neoplastic process. 4. Stable severe right hydronephrosis with caliber change at the ureteropelvic junction. As described previously there is questionable thickening of the ureter in this area which could be related to a malignant process. 5. Persistent free fluid in the abdomen and pelvis with stranding in the omentum. 6. There is a 4 mm pulmonary nodule identified in the right lower lobe. Phoenix Pruitt MD Renal Ultrasound 02/07/17 0000 Signed Impressions: Service Date/Time: Tuesday, February 07, 2017 18:00 - CONCLUSION: Dilated right renal pelvis. The UPJ soft tissue lesion and bladder abnormality noted on the CT examination is not clearly evaluated on ultrasound. This would be best assessed with cystoscopy and ureteroscopy. Rafita Schilling MD Abdomen/Pelvis/Transvag US 02/07/17 0000 Signed Impressions: Service Date/Time: Tuesday, February 07, 2017 18:09 - CONCLUSION: 1. Cyst left ovary. 2. Right ovary not seen. 3. Small amount of free fluid in the pelvis. Rafita Schilling MD Objective Remarks GENERAL: This is a well-nourished, well-developed patient, in no apparent distress. CARDIOVASCULAR: Regular rate and regular rhythm without murmurs, gallops, or rubs. RESPIRATORY: Clear to auscultation. Breath sounds equal bilaterally. No wheezes , rales, or rhonchi. GASTROINTESTINAL: Abdomen soft, non-tender, nondistended. ileostomy in place. MUSCULOSKELETAL: Extremities without clubbing, cyanosis, or edema. NEURO: Alert & Oriented x4 to person, place, time, situation. Moves all ext x4 Procedures Cystoscopy right ureteroscopy with right double-J stent insertion Flexible Sigmoidoscopy with biopsies Gilmer cut needle Biopsy Rectum Exploratory laparotomy Peritoneal biopsies Diverting loop Ileostomy Medications and IVs Current Medications Phytonadione (Vitamin K Inj) 10 mg ONCE ONCE SQ Last administered on t 14:37; Start 02/07/17 at 14:30; Stop 02/07/17 at 14:31; Status DC Iohexol (Omnipaque 350 Inj) 87 ml STK-MED ONCE IV Last administered on 15:35; Start 02/07/17 at 15:35; Stop 02/07/17 at 15:36; Status DC Sodium Chloride (NS Flush) 2 ml UNSCH PRN IV FLUSH FLUSH AFTER USING IV ACCESS ; Start 02/07/17 at 17:00; Stop 02/13/17 at 17:31; Status DC Sodium Chloride (NS Flush) 2 ml BID IV FLUSH Last administered on 02/13/17 08: 25; Start 02/07/17 at 21:00; Stop 02/13/17 at 17:31; Status DC Acetaminophen (Tylenol) 650 mg Q4H PRN PO TEMP > 100.4; Start 02/07/17 at 17:00 Ondansetron HCl (Zofran Inj) 4 mg Q6H PRN IVP NAUSEA OR VOMITING Last administered on 02/11/17 19:28; Start 02/07/17 at 17:00; Stop 02/13/17 at 17:32 ; Status DC Naloxone HCl (Narcan Inj) 0.4 mg UNSCH PRN IV SEE LABEL COMMENTS; Start at 17:00; Stop 02/13/17 at 17:22; Status DC Magnesium Hydroxide (Milk Of Magnesia Liq) 30 ml Q12H PRN PO MILD - MODERATE CONSTIPATION; Start 02/07/17 at 17:00 Sennosides (Senokot) 17.2 mg Q12H PRN PO MODERATE - SEVERE CONSTIPATION; Start 02/07/17 at 17:00 Bisacodyl (Dulcolax Supp) 10 mg DAILY PRN RECTAL SEVERE CONSITIPATION; Start at 17:00 Lactulose (Lactulose Liq) 30 ml DAILY PRN PO SEVERE CONSITIPATION; Start at 17:00 Levothyroxine Sodium (Synthroid) 88 mcg DAILY@06 PO Last administered on 05:16; Start 02/08/17 at 06:00 Metoprolol Tartrate (Lopressor) 25 mg BID PO Last administered on 02/17/17 09: 10; Start 02/07/17 at 21:00 Pravastatin Sodium (Pravachol) 80 mg HS PO Last administered on 02/16/17 21:08 ; Start 02/07/17 at 21:00 Acetaminophen/ Hydrocodone Bitart (Lotus 5-325 Mg) 1 tab Q4H PRN PO PAIN SCALE 1 TO 5 Last administered on 02/13/17 04:59; Start 02/07/17 at 18:00; Stop 02/13/17 at 17:29; Status DC Acetaminophen/ Hydrocodone Bitart (Lotus 10-325 Mg) 1 tab Q4H PRN PO PAIN SCALE 6 TO 10 Last administered on 02/10/17 20:18; Start 02/07/17 at 18:00; Stop 02/13/17 at 17:30; Status DC Clonidine 0.1 mg 0.1 mg Q6H PRN PO SBP>180, DBP>95; Start 02/07/17 at 18:15 Sodium Chloride 500 ml @ 50 mls/hr Q10H IV Last administered on 02/07/17 20: 33; Start 02/07/17 at 18:15; Stop 02/08/17 at 04:14; Status DC Potassium Chloride/Dextrose/ Sod Cl (D5-1/2 NS + KCl 10 Meq Inj) 1,000 ml @ 125 mls/hr Q8H IV Last administered on 02/12/17 05:07; Start 02/08/17 at 16:00 ; Stop 02/12/17 at 13:27; Status DC Cholestyramine Resin (Questran 4 Gm Pkt) 4 gm Q12HR PO Last administered on 08:28; Start 02/08/17 at 21:00; Status Hold Polyethylene Glycol/ Electrolytes (Colyte Liq) 4,000 ml ONCE ONCE PO Last administered on 02/09/17 17:30; Start 02/09/17 at 17:30; Stop 02/09/17 at 17:31 ; Status DC Propofol (Diprivan 200 Mg/20 ml Inj) 200 mg STK-MED ONCE IV PUSH ; Start at 14:29; Stop 02/10/17 at 14:30; Status DC Simethicone (Simethicone Liq (Drops)) 2,000 mg STK-MED ONCE PO Last administered on 02/10/17 14:50; Start 02/10/17 at 14:50; Stop 02/10/17 at 14:58 ; Status DC Flumazenil (Romazicon Inj) 0.2 mg UNSCH X1 PRN IV OVERSEDATION; Start 02/10/17 at 15:00; Stop 02/11/17 at 14:59; Status DC Flumazenil (Romazicon Inj) 0.2 mg Q1M PRN IV OVERSEDATION; Start 02/10/17 at 15 :00; Stop 02/11/17 at 14:59; Status DC Naloxone HCl (Narcan Inj) 0.1 mg Q2M PRN IV OVERSEDATION; Start 02/10/17 at 15: 00; Stop 02/11/17 at 14:59; Status DC Diatrizoate Meglum/ Diatrizoate Sod ( Gastroamldonado Liq) 18 ml ONCE ONCE PO Last administered on 02/10/17 15:42; Start 02/10/17 at 15:15; Stop 02/10/17 at 15:16; Status DC Morphine Sulfate (Morphine Inj) 4 mg ONCE STAT IV PUSH Last administered on 16:33; Start 02/10/17 at 15:47; Stop 02/10/17 at 15:58; Status DC Morphine Sulfate (Morphine Inj) 2 mg Q3H PRN IV PUSH BREAKTHROUGH PAIN; Start 02/10/17 at 16:00; Stop 02/13/17 at 17:39; Status DC Iohexol (Omnipaque 350 Inj) 95 ml STK-MED ONCE IV Last administered on 17:27; Start 02/10/17 at 17:27; Stop 02/10/17 at 17:28; Status DC Mesalamine (Asacol Hd Dr) 1,600 mg Q8HR PO Last administered on 02/17/17 05:16 ; Start 02/10/17 at 22:00 Nystatin (Mycostatin Liq) 5 ml QID SWISH-SWAL Last administered on 02/17/17 09:06; Start 02/11/17 at 10:28 Enoxaparin Sodium 40 mg 40 mg Q24H SQ Last administered on 02/12/17 12:52; Start 02/11/17 at 11:00; Stop 02/12/17 at 17:16; Status DC Potassium Chloride/Dextrose/ Sod Cl 1,000 ml @ 100 mls/hr Q10H IV Last administered on 02/13/17 05:02; Start 02/12/17 at 12:30; Stop 02/13/17 at 17:20 ; Status DC Cefazolin Sodium/ Dextrose 50 ml @ 100 mls/hr CLINICAL LABORATORY DIRECTOR IV Last administered on 02/13/17 14:46; Start 02/12/17 at 16:15; Stop 02/16/17 at 16:14; Status DC Lactated Ringer's 1,000 ml @ 30 mls/hr Q24H PRN IV SEE LABEL COMMENTS; Start at 02:00; Stop 02/16/17 at 01:59; Status DC Sodium Chloride (NS 500 ml Inj) 500 ml @ 30 mls/hr [id number] PRN IV SEE LABEL COMMENTS; Start 02/13/17 at 02:00; Stop 02/16/17 at 01:59; Status DC Povidone Iodine (Betadine 5% Antisepsis Kit) 1 applic CLINICAL LABORATORY DIRECTOR PRN EACH NARE SEE LABEL COMMENTS; Start 02/13/17 at 02:00; Stop 02/16/17 at 01:59; Status DC Chlorhexidine Gluconate (Chlorhexidine 2% Cloth) 3 pack CLINICAL LABORATORY DIRECTOR PRN TOPICAL SEE LABEL COMMENTS; Start 02/13/17 at 02:00; Stop 02/16/17 at 01:59; Status DC Insulin Human Regular (NovoLIN R INJ) See Protocol Table ... CLINICAL LABORATORY DIRECTOR PRN SQ SEE PROTOCOL TABLE; Start 02/13/17 at 02:00; Stop 02/16/17 at 01:59; Status DC Sugammadex Sodium (Bridion Inj) 200 mg STK-MED ONCE IV PUSH ; Start 02/13/17 at 14:15; Stop 02/13/17 at 14:16; Status DC Acetaminophen (Ofirmev Inj) 1,000 mg STK-MED ONCE IV ; Start 02/13/17 at 14:16; Stop 02/13/17 at 14:17; Status DC Dexamethasone Sodium Phosphate (Decadron Inj) 4 mg STK-MED ONCE .ROUTE ; Start 02/13/17 at 14:16; Stop 02/13/17 at 14:17; Status DC Famotidine (Pepcid Inj) 20 mg STK-MED ONCE .ROUTE ; Start 02/13/17 at 14:16; Stop 02/13/17 at 14:17; Status DC Bupivacaine HCl/ Epinephrine Bitart (Sensorcaine-Epi 0.5% 50 ml Inj) 50 ml STK- MED ONCE .ROUTE ; Start 02/13/17 at 14:28; Stop 02/13/17 at 14:29; Status DC Lidocaine/ Epinephrine 50 ml 50 ml STK-MED ONCE .ROUTE ; Start 02/13/17 at 14:29 ; Stop 02/13/17 at 14:30; Status DC Potassium Cl/ Dextrose/Lact Ringer's (D5-Lr + KCl 20 Meq Inj) 1,000 ml @ 50 mls /hr Q20H IV Last administered on 02/16/17 13:12; Start 02/13/17 at 18:00 Sodium Chloride (NS Flush) 2 ml UNSCH PRN IV FLUSH FLUSH AFTER USING IV ACCESS ; Start 02/13/17 at 17:00 Sodium Chloride 2 ml 2 ml BID IV FLUSH Last administered on 02/14/17 09:00; Start 02/13/17 at 21:00 Cefazolin Sodium/ Dextrose 50 ml @ 100 mls/hr Q8H IV Last administered on 02/14 14:00; Start 02/13/17 at 22:00; Stop 02/14/17 at 14:29; Status DC Metronidazole (Flagyl 500 Mg Inj) 100 ml @ 200 mls/hr Q8H IV ; Start 02/13/17 at 17:00; Stop 02/13/17 at 19:16; Status DC Miscellaneous Information (Post-op Orders (for Pharmacy)) STAT ONCE XX ; Start 02/13/17 at 17:00; Stop 02/13/17 at 17:33; Status DC Acetaminophen/ Hydrocodone Bitart (Lotus 5-325 Mg) 1 tab Q4H PRN PO PAIN SCALE 1 TO 4; Start 02/13/17 at 17:00 Acetaminophen/ Hydrocodone Bitart (Lotus 5-325 Mg) 2 tab Q4H PRN PO PAIN SCALE 5 TO 10 Last administered on 02/17/17 09:06; Start 02/13/17 at 17:00 Ketorolac Tromethamine (Toradol Inj) 15 mg Q6H PRN IVP BREAKTHROUGH PAIN; Start 02/13/17 at 17:00; Stop 02/16/17 at 16:59; Status DC Alvimopan (Entereg) 12 mg BID PO Last administered on 02/17/17 09:06; Start at 09:00; Stop 02/20/17 at 21:01 Pantoprazole Sodium (Protonix Inj) 40 mg DAILY IVP Last administered on 09:12; Start 02/14/17 at 09:00 Metoclopramide HCl (Reglan Inj) 10 mg Q6HR IVS Last administered on 02/17/17 09:11; Start 02/13/17 at 18:00 Ondansetron HCl (Zofran Inj) 4 mg Q6H PRN IV NAUSEA Last administered on 21:08; Start 02/13/17 at 17:00 Enalaprilat (Vasotec Inj) 1.25 mg Q4H PRN IV SYS BP GREATER THAN 160 MMHG; Start 02/13/17 at 17:00 Zolpidem Tartrate (Ambien) 5 mg HS PRN PO INSOMNIA; Start 02/13/17 at 17:00 Benzocaine/Menthol (Chloraseptic Ann) 1 lozenge UNSCH PRN BUCCAL SORE THROAT; Start 02/13/17 at 17:00 Furosemide 20 mg 20 mg Q12HR IV Last administered on 02/16/17 08:11; Start at 21:00; Stop 02/16/17 at 09:02; Status DC Potassium Chloride 100 ml @ 50 mls/hr UNSCH PRN IV POTASSIUM 3 TO 3.5; Start 02/13/17 at 17:00 Potassium Chloride (KCl 40 Meq Premix Inj) 100 ml @ 25 mls/hr UNSCH PRN IV POTASSIUM LESS THAN 3; Start 02/13/17 at 17:00 Heparin Sodium (Porcine) (Heparin Inj) 5,000 units Q8H SQ Last administered on 02/17/17 09:12; Start 02/14/17 at 16:00 Naloxone HCl (Narcan Inj) 0.4 mg UNSCH PRN IV RESPIRATORY RATE LESS THAN 10; Start 02/13/17 at 17:00 Morphine Sulfate (Morphine 1 Mg/ ml ASSISTANT MECHANIC) 30 mg UNSCH IV Last administered on 23:18; Start 02/13/17 at 17:00; Stop 02/17/17 at 07:00; Status DC ASSISTANT MECHANIC Dosage Infused (Pha) 1 Q8HR .XX Last administered on 02/17/17 05:17; Start 02/13/17 at 17:00; Stop 02/17/17 at 07:00; Status DC Midazolam HCl (Versed Inj) 2 mg STK-MED ONCE .ROUTE ; Start 02/13/17 at 17:10; Stop 02/13/17 at 17:11; Status DC Fentanyl Citrate (fentaNYL INJ) 250 mcg STK-MED ONCE .ROUTE ; Start 02/13/17 at 17:10; Stop 02/13/17 at 17:11; Status DC Morphine Sulfate (Morphine Inj) 8 mg STK-MED ONCE .ROUTE ; Start 02/13/17 at 17: 10; Stop 02/13/17 at 17:11; Status DC Miscellaneous Information ALL NURSING DEPARTME... UNSCH PRN .XX SEE LABEL COMMENTS; Start 02/13/17 at 18:00; Stop 02/14/17 at 17:59; Status DC Diphenhydramine HCl (Benadryl Inj) 50 mg STK-MED ONCE .ROUTE Last administered on 02/13/17 21:02; Start 02/13/17 at 21:02; Stop 02/13/17 at 21:03; Status DC Cefazolin Sodium (Ancef Inj) 1,000 mg STK-MED ONCE .ROUTE Last administered on 02/13/17 21:59; Start 02/13/17 at 21:59; Stop 02/13/17 at 22:00; Status DC Oxybenzone/ Padimate O/ Dimethicone (Blistex Lip [place]) 4.25 applic STK-MED ONCE TOPICAL Last administered on 02/14/17 08:34; Start 02/14/17 at 08:34; Stop at 08:35; Status DC A/P Assessment and Plan A/P Abdominal pain, bilateral lower quadrants Chronic Diarrhea/fecal incontinence Wt loss Peritoneal carcinomatosis The patient was treated empirically with Flagyl 7 days prior to admission without improvement of her symptoms. C. difficile negative. - CT abd/pelvis showing prominence of the right renal pelvis and possible mild hydronephrosis with prominent soft tissue density at the UPJ, underlying neoplastic process should be excluded. Prominent anterior bladder wall thickening measuring 9 mm. Borderline prominent left ovary. -GI following. Status post colonoscopy. 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 The scope could not be passed. - Patient evaluated by colorectal surgery, she underwent exploratory laparotomy which revealed peritoneal carcinomatosis. Patient is status post diverting loop ileostomy. - Oncology follow-up appreciated; palliative care consulted. Supratherapeutic INR,has resolved. - INR 12.3 on presentation. Status post vitamin K. Continue to hold Coumadin. On heparin for prophylaxis. Mild hydronephrosis with prominent soft tissue density at the UPJ Prominent bladder thickening -Appreciate urology following. Patient is status post Cystoscopy, right ureteroscopy with right double-J stent insertion - Voiding trial when more ambulatory per urology. Borderline prominence left ovary - Complaints of left lower quadrant pain - Pelvic ultrasound revealed a left ovarian cyst. Coronary artery disease Afib Previous CO in 2011 with attempted but unsuccessful stent placement Hypertension Dyslipidemia - Resumed home metoprolol 25 mg by mouth twice a day - Resumed statin therapy - Clonidine prn with parameters - Monitor - Plan to resume Coumadin once cleared by colorectal surgery and urology. Pulmonary nodule: Discovered on abdominal CT. She does have a history of tobacco abuse. Chest CT obtained. Recommends follow-up noncontrast CT in 6 months. Hypothyroidism - Resumed home levothyroxine. - TSH level ok DVT prophylaxis - SCDs. Moni Persaud MD Feb 17, 2017 10:51 Moni Persaud MD Feb 17, 2017 10:51
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
--- NOTE | 2017-02-17 11:56 | HHI.PR ---
Subjective Patient symptoms today Pt seen and examined. Feeling ok; some pain noted. Ambulating and taking some PO. Objective Vital Signs Vital Signs Date Time Temp Pulse Resp B/P Pulse Ox O2 Delivery O2 Flow Rate FiO2 02/17/17 08:00 96.2 81 17 122/64 96 02/17/17 05:17 20 02/17/17 04:16 97.8 90 16 132/71 93 02/17/17 00:10 97.6 94 16 140/69 94 02/16/17 23:18 18 02/16/17 21:08 18 02/16/17 20:05 98.1 85 18 126/75 97 02/16/17 16:00 96.9 103 18 143/75 93 02/16/17 14:00 18 02/16/17 12:00 95.8 80 16 129/64 95 Intake & Output 02/17/17 02/17/17 07:00 19:00 Intake Total 1127 ml Output Total 600 ml Balance 527 ml Intake Oral 380 ml IV Total 747 ml Output Urine Total 400 ml Stool Total 200 ml Result Diagram: 02/15/1752702/15/17527 Objective Remarks Abd:soft, tendness with palpation Neg CVAT Ext: neg C/C/E 02/13 Abd:soft, tendness with palpation Neg CVAT Ext: neg C/C/E 02/14 Abd: abdominal binder in place Perdomo with clear urine 02/15 Abd: abdominal binder in place Perdomo with clear urine 02/16 Abd: abdominal binder in place Perdomo out and voiding 02/17 Abd: abdominal binder in place Voiding Medications and IVs Current Medications Medications (Trade) Dose Ordered Sig/Trina Route Start Time Stop Time Status Last Admin (Tylenol) 650 mg Q4H PRN PO 02/07/17 17:00 (Milk Of Magnesia Liq) 30 ml Q12H PRN PO 02/07/17 17:00 (Senokot) 17.2 mg Q12H PRN PO 02/07/17 17:00 (Dulcolax Supp) 10 mg DAILY PRN RECTAL 02/07/17 17:00 (Lactulose Liq) 30 ml DAILY PRN PO 02/07/17 17:00 (Synthroid) 88 mcg DAILY@06 PO 02/08/17 06:00 02/17/17 05:16 (Lopressor) 25 mg BID PO 02/07/17 21:00 02/17/17 09:10 (Pravachol) 80 mg HS PO 02/07/17 21:00 02/16/17 21:08 (Catapres) 0.1 mg Q6H PRN PO 02/07/17 18:15 (Questran 4 Gm Pkt) 4 gm Q12HR PO 02/08/17 21:00 Hold 02/09/17 08:28 (Asacol Hd Dr) 1,600 mg Q8HR PO 02/10/17 22:00 02/17/17 05:16 Nystatin 5 ml 5 ml QID SWISH-SWAL 02/11/17 10:28 02/17/17 09:06 (D5-Lr + KCl 20 Meq Inj) 1,000 ml @ 50 mls/hr Q20H IV 02/13/17 18:00 02/16/17 13:12 (NS Flush) 2 ml UNSCH PRN IV FLUSH 02/13/17 17:00 (NS Flush) 2 ml BID IV FLUSH 02/13/17 21:00 02/14/17 09:00 ([place] 5-325 Mg) 1 tab Q4H PRN PO 02/13/17 17:00 ([place] 5-325 Mg) 2 tab Q4H PRN PO 02/13/17 17:00 02/17/17 09:06 (Entereg) 12 mg BID PO 02/14/17 09:00 02/20/17 21:01 02/17/17 09:06 (Protonix Inj) 40 mg DAILY IVP 02/14/17 09:00 02/17/17 09:12 (Reglan Inj) 10 mg Q6HR IVS 02/13/17 18:00 02/17/17 09:11 (Zofran Inj) 4 mg Q6H PRN IV 02/13/17 17:00 02/16/17 21:08 (Vasotec Inj) 1.25 mg Q4H PRN IV 02/13/17 17:00 (Ambien) 5 mg HS PRN PO 02/13/17 17:00 Benzocaine/ Menthol 1 lozenge 1 lozenge UNSCH PRN BUCCAL 02/13/17 17:00 Potassium Chloride 100 ml @ 50 mls/hr UNSCH PRN IV 02/13/17 17:00 (KCl 40 Meq Premix Inj) 100 ml @ 25 mls/hr UNSCH PRN IV 02/13/17 17:00 (Heparin Inj) 5,000 units Q8H SQ 02/14/17 16:00 02/17/17 09:12 (Narcan Inj) 0.4 mg UNSCH PRN IV 02/13/17 17:00 Assessment and Plan Assessment and Plan 66 y.o female admitted with abdominal pain and diarrhea super therapeutic on Warfarin. INR at 3.5 Right hydronephrosis with bladder wall thickening noted on recent CT scan. Will need cysto with right URS after diarrhea, abdominal pain and over coagulation resolves 02/13 66 y.o female with right hydronephrosis and possible proximal ureteral mass on CT scan Pt for colostomy today per Dr. Sams Will perform cystoscopy/Right URS with possible ureteral biopsy with right JJ stent insertion Risks and benefits discussed and the patient is willing to proceed. 02/14 66 y.o female s/p ex-lap with ileostomy and cysto with left JJ stent insertion Maintain perdomo catheter for now. Void trial once ambulating. Check path 02/15 66 y.o female s/p ex-lap with ileostomy and cysto with left JJ stent insertion Maintain perdomo catheter for now. 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 Artemio Jones DO Feb 17, 2017 11:56
[2017-02-17 12:00] VITALS: BP 113/78; PULSE 77; RESP 17; TEMP 95.9; O2SAT 96
[2017-02-17 16:00] VITALS: BP 121/70; PULSE 77; RESP 18; TEMP 95.8; O2SAT 95
--- NOTE | 2017-02-17 16:32 | PD.WCN.NOT ---
Wound Consult Description: Consult for NEW OSTOMY TEACHING for RLQ ileostomy Recommendation: Encourage patient to practice emptying pouch when 1/3-1/2 full Neg Pressure Wound Therapy Wound Location Wound Location: Consult for NEW OSTOMY TEACHING for RLQ ileostomy Ostomy Type: Ileostomy Surgeon: Phoenix Barraza MD Date of Surgery: Feb 13, 2017 Complete: Starter kit, Education materials Additional information Attempted to see patient today for more teaching on ileostomy. Patient is speaking with palliative care at this time. Will follow up with patient on Monday. Spoke with CARMELO Hood regarding patient. CARMELO Hood states that she has been emptying her pouch and releasing air from pouch. Education materials were given to patient and at bedside. Patient has not yet been set up with home starter kit through [employer], as consent for this has not yet been obtained. Dolores Waddell [facility] Feb 17, 2017 16:32
--- NOTE | 2017-02-17 16:56 | HHI.PR ---
Subjective Remarks No Nor V. Discussed finding of peritoneal carcinomatosis. Oncology has seen patient.Path with poorly diff small cell. ? primary peritoneal vs ovarian Objective Vital Signs Date Time Temp Pulse Resp B/P Pulse Ox O2 Delivery O2 Flow Rate FiO2 02/17/17 16:00 95.8 77 18 121/70 95 02/17/17 12:00 95.9 77 17 113/78 96 02/17/17 08:00 96.2 81 17 122/64 96 02/17/17 05:17 20 02/17/17 04:16 97.8 90 16 132/71 93 02/17/17 00:10 97.6 94 16 140/69 94 02/16/17 23:18 18 02/16/17 21:08 18 02/16/17 20:05 98.1 85 18 126/75 97 I/O 02/16/17 02/16/17 02/16/17 02/17/17 02/17/17 02/17/17 07:00 15:00 23:00 07:00 15:00 23:00 Intake Total 745 ml 1005 ml 380 ml 747 ml 701 ml Output Total 1000 ml 425 ml 800 ml 725 ml Balance -255 ml 580 ml -420 ml 747 ml -24 ml Intake Oral 320 ml 275 ml 380 ml 375 ml IV Total 425 ml 730 ml 747 ml 326 ml Output Urine Total 800 ml 425 ml 400 ml 500 ml Stool Total 200 ml 0 ml 400 ml 225 ml # Bowel Movements 2 6 Result Diagram: 02/15/1752702/15/17527 Objective Remarks VS-S Abd: Less distended, Ileostomy pink,stooling from rectum,wound clean. Slightly red at staple sites and umbilicus. Will watch closely. Labs-OK except CA 125 markedly elevated Assessment and Plan Assessment and Plan Stable POD#4. Ileostomy was done because of significant distal Ileal carcinoma and possible pending obstruction. Plan: [facility] for new Ileostomy teaching vs SNF post op. Ready for D/C tomorrow from surgical standpoint. I have D/W Dr Jeter several days ago Phoenix Barraza MD Feb 17, 2017 16:56
--- NOTE | 2017-02-17 17:05 | HHI.FF ---
Face to Face Verification Diagnosis: (1) Peritoneal carcinomatosis (2) Ileostomy in place Home Health Nursing Order: Medical education Signs/symptoms of disease process Wound care and dressing changes Nursing assessment with vital signs Instructions: Pt will need Ileostomy teaching and supplies I have seen patient Xochilt Montanez on 02/17/17. My clinical findings support the need for the requested home health care services because: Ltd mobility - disease progression Deconditioned w/ increased weakness Limited ability to care for self Need for psychosocial assistance I certify that my clinical findings support that this patient is homebound because: Post-op weakness Unsteady gait/balance Unsafe to leave home unassisted Need for psychosocial assistance Phoenix Barraza MD Feb 17, 2017 17:05
[2017-02-17 20:00] VITALS: BP 115/65; PULSE 93; RESP 18; TEMP 96.9; O2SAT 93
[2017-02-17] MEDS: PRAVASTATIN SOD 80 MG TAB PO SCH (21:58)
[2017-02-18] VITALS: BP 135/72; PULSE 87; RESP 18; TEMP 99.6; O2SAT 92
[2017-02-18] MEDS: MESALAMINE HD 800 MG DELAYED RELEASE TAB PO SCH ×3 (05:46→21:20)
[2017-02-18] MEDS: METOCLOPRAMIDE HCL 10 MG/2 ML VIAL IVS SCH ×3 (05:46→18:32)
[2017-02-18] MEDS: LEVOTHYROXINE SODIUM 88 MCG TAB PO SCH (05:46)
[2017-02-18 08:00] VITALS: BP 128/72; PULSE 87; RESP 20; TEMP 97.8; O2SAT 95
[2017-02-18 08:10] LABS: BACTERIA, URINE OCC /hpf; BLOOD, URINE MOD (NEG); CALCIUM OXALATE CRYSTALS,URINE RARE /hpf; COMMENT (UR) CULTURE INDICATED; CULTURE IF INDICATED CULTURE INDICATED; GLUCOSE,URINE NEG (NEG); HYALINE CAST, URINE 5 /lpf (RARE); KETONE, URINE 40 mg/dL (NEG); MUCUS URINE MANY /lpf (OCC); NITRITE,URINE NEG (NEG); PH, URINE 5.5 (5.0-8.5); SQUAMOUS EPITHELIAL CELL URINE 8 /hpf (0-5); URINE COLOR YELLOW (YELLW/STRAW)
[2017-02-18] MEDS: NYSTATIN SUSP 500,000 U/5 ML CUP SWISH-SWAL SCH ×4 (08:49→21:20)
[2017-02-18] MEDS: METOPROLOL TARTRATE 25 MG TAB PO SCH ×2 (08:50→21:20)
[2017-02-18] MEDS: ALVIMOPAN 12 MG CAPSULE PO SCH ×2 (08:50→21:20)
[2017-02-18] MEDS: SODIUM CHLORIDE 0.9% FLUSH 10 ML FLUSH IV FLUSH SCH ×2 (08:51→21:20)
[2017-02-18] MEDS: PANTOPRAZOLE SODIUM 40 MG VIAL IVP SCH (08:51)
[2017-02-18] MEDS: HEPARIN SODIUM - SQ 10,000 UNITS/ML VIAL SQ SCH ×2 (08:53→16:02)
[2017-02-18 12:00] VITALS: PULSE 82; RESP 16; TEMP 97.5; O2SAT 96
--- NOTE | 2017-02-18 13:15 | HHI.PR ---
Subjective Remarks Patient currently states she has minimal pain in her abdomen. Denies any chest pain, shortness of breath, nausea or vomiting. She is to empty the ileostomy bag but doesn't know how to change it She is concerned about going home but knows she has not been accepted to a SNF. She states that she will need help with laundry and other house chores. She states she has an appointment with case management on Monday Objective Vitals Vital Signs Date Time Temp Pulse Resp B/P Pulse Ox O2 Delivery O2 Flow Rate FiO2 02/18/17 12:00 97.5 82 16 96 02/18/17 08:00 97.8 87 20 128/72 95 02/18/17 00:00 99.6 87 18 135/72 92 02/17/17 20:00 96.9 93 18 115/65 93 02/17/17 16:00 95.8 77 18 121/70 95 I/O 02/17/17 02/17/17 02/17/17 02/18/17 02/18/17 02/18/17 07:00 15:00 23:00 07:00 15:00 23:00 Intake Total 747 ml 701 ml Output Total 725 ml 1725 ml 1000 ml Balance 747 ml -24 ml -1725 ml -1000 ml Intake Oral 375 ml IV Total 747 ml 326 ml Output Urine Total 500 ml 1000 ml 450 ml Stool Total 225 ml 725 ml 550 ml # Bowel Movements 6 8 3 Result Diagram: 02/15/17 0528 02/15/17 0528 Imaging Last Impressions Abdomen X-Ray 02/13/17 0000 Signed Impressions: Service Date/Time: Monday, February 13, 2017 17:34 - CONCLUSION: Gaseous distention. Right nephroureteral stent in good position. Leif Landa MD Chest CT 02/11/17 0000 Signed Impressions: Service Date/Time: Saturday, February 11, 2017 11:21 - CONCLUSION: Right middle lobe infiltrate and questionable tiny nodules bilaterally, repeat noncontrasted CT is suggested in 6 months as a conservative follow up. Navjot Jonas MD Abdomen/Pelvis CT 02/10/17 0000 Signed Impressions: Service Date/Time: Friday, February 10, 2017 17:23 - CONCLUSION: 1. Stable severe wall thickening of the entire rectum with induration of the fat in the mesial rectum. A malignancy or inflammatory process could both have this appearance. 2. There is a new fluid in the right and transverse colon possibly related to interval bowel prep. 3. Stable wall thickening of the anterior urinary bladder suspicious for a neoplastic process. 4. Stable severe right hydronephrosis with caliber change at the ureteropelvic junction. As described previously there is questionable thickening of the ureter in this area which could be related to a malignant process. 5. Persistent free fluid in the abdomen and pelvis with stranding in the omentum. 6. There is a 4 mm pulmonary nodule identified in the right lower lobe. Phoenix Pruitt MD Renal Ultrasound 02/07/17 Signed Impressions: Service Date/Time: Tuesday, February 07, 2017 18:00 - CONCLUSION: Dilated right renal pelvis. The UPJ soft tissue lesion and bladder abnormality noted on the CT examination is not clearly evaluated on ultrasound. This would be best assessed with cystoscopy and ureteroscopy. Rafita Schilling MD Abdomen/Pelvis/Transvag US 02/07/17 Signed Impressions: Service Date/Time: Tuesday, February 07, 2017 18:09 - CONCLUSION: 1. Cyst left ovary. 2. Right ovary not seen. 3. Small amount of free fluid in the pelvis. Rafita Schilling MD Objective Remarks GENERAL: This is a well-nourished, well-developed patient, sitting up in front of a computer. CARDIOVASCULAR: Regular rate and regular rhythm without murmurs RESPIRATORY: Clear to auscultation. Breath sounds equal bilaterally. No wheezes. GASTROINTESTINAL: Abdomen soft, nondistended. [place] in place, incision healing well, No signs of infection ileostomy in place. MUSCULOSKELETAL: Extremities without edema. NEURO: [employer], answers questions. Moves all ext x4 Procedures Cystoscopy right ureteroscopy with right double-J stent insertion Flexible Sigmoidoscopy with biopsies Gilmer cut needle Biopsy Rectum Exploratory laparotomy Peritoneal biopsies Diverting loop Ileostomy A/P Problem List: (1) Diarrhea ICD Code: R19.7 Status: Acute (2) Bladder wall thickening ICD Code: N32.89 Status: Acute (3) Abdominal pain ICD Code: R10.9 Status: Acute (4) Supratherapeutic INR ICD Code: R79.1 Status: Acute (5) Hematuria ICD Code: R31.9 Status: Acute (6) Paroxysmal a-fib ICD Code: I48.0 Status: Acute (7) Hypertension ICD Code: I10 Status: Acute Assessment and Plan Abdominal pain, bilateral lower quadrants Chronic Diarrhea/fecal incontinence Wt loss Peritoneal carcinomatosis The patient was treated empirically with Flagyl 7 days prior to admission without improvement of her symptoms. C. difficile negative. - CT abd/pelvis showing prominence of the right renal pelvis and possible mild hydronephrosis with prominent soft tissue density at the UPJ, underlying neoplastic process should be excluded. Prominent anterior bladder wall thickening measuring 9 mm. Borderline prominent left ovary. -GI following. Status post colonoscopy. 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 The scope could not be passed. - Patient evaluated by colorectal surgery, she underwent exploratory laparotomy which revealed peritoneal carcinomatosis. Patient is status post diverting loop ileostomy. POD5 - Oncology follow-up appreciated; palliative care evaluated the patient, she desires to continue to remain full code. Per their documentation, patient has a son however she does not want him to make decisions on her behalf in case of an emergency. She is still undecided on her POA will be. Supratherapeutic INR,has resolved. - INR 12.3 on presentation. Status post vitamin K. Continue to hold Coumadin. On heparin for prophylaxis. Mild hydronephrosis with prominent soft tissue density at the UPJ Prominent bladder thickening -Appreciate urology following. Patient is status post Cystoscopy, right ureteroscopy with right double-J stent insertion -Patient has been voiding without Pepper, she will follow-up with urology in 6 weeks. Borderline prominence left ovary - Complaints of left lower quadrant pain - Pelvic ultrasound revealed a left ovarian cyst. Coronary artery disease Afib Previous [place] in 2011 with attempted but unsuccessful stent placement Hypertension Dyslipidemia - on home metoprolol 25 mg by mouth twice a day -On statin therapy - Clonidine prn with parameters - Monitor - Plan to resume Coumadin once cleared by colorectal surgery and urology. Pulmonary nodule: Discovered on abdominal CT. She does have a history of tobacco abuse. Chest CT obtained. Recommends follow-up noncontrast CT in 6 months. Hypothyroidism - Resumed home levothyroxine. - TSH level ok DVT prophylaxis - SCDs. Heparin. Discharge Planning Patient can be discharged from a surgical and urological standpoint. Apparently, patient's insurance will not cover SNF placement. She will require home health care for ileostomy care. Patient is very concerned about going home. Per case management's note, the earlier a home health care nurse can come would be on Monday02/20/17. Patient to remain in the hospital until then. We will discuss with case management on Monday to make sure all supplies are available prior to discharge Problem Qualifiers (1) Diarrhea: Qualified Code: R19.7 - Diarrhea, unspecified type (2) Abdominal pain: Qualified Code: R10.84 - Generalized abdominal pain (3) Hematuria: Qualified Code: R31.9 - Hematuria, unspecified type Beverly Blount MD Feb 18, 2017 13:14
--- NOTE | 2017-02-18 13:16 | HHI.PR ---
Subjective Remarks No Nor V. Stooling per rectum and Ileostomy. Ileostomy bag leaked today. Pt upset at this. Objective Vital Signs Date Time Temp Pulse Resp B/P Pulse Ox O2 Delivery O2 Flow Rate FiO2 02/18/17 12:00 97.5 82 16 96 02/18/17 08:00 97.8 87 20 128/72 95 02/18/17 00:00 99.6 87 18 135/72 92 02/17/17 20:00 96.9 93 18 115/65 93 02/17/17 16:00 95.8 77 18 121/70 95 I/O 02/17/17 02/17/17 02/17/17 02/18/17 02/18/17 02/18/17 07:00 15:00 23:00 07:00 15:00 23:00 Intake Total 747 ml 701 ml Output Total 725 ml 1725 ml 1000 ml Balance 747 ml -24 ml -1725 ml -1000 ml Intake Oral 375 ml IV Total 747 ml 326 ml Output Urine Total 500 ml 1000 ml 450 ml Stool Total 225 ml 725 ml 550 ml # Bowel Movements 6 8 3 Result Diagram: 02/15/1752702/15/17527 Objective Remarks VS-S Abd: Flat, soft, Ileostomy pink,stooling from rectum,wound clean. Wound clean. Less red. Will watch closely. Assessment and Plan Assessment and Plan Stable POD#5 Ileostomy was done because of significant distal Ileal carcinoma and possible pending obstruction. Plan: [facility] for new Ileostomy teaching apparently [facility] not approved by [employer] post op. Ready for D/C from surgical standpoint. I have D/W Dr Jeter several days ago. Appt. with me end of next week for staple removal Phoenix Barraza MD Feb 18, 2017 13:16
[2017-02-18 16:00] VITALS: BP 114/64; PULSE 92; RESP 16; TEMP 98.1; O2SAT 98
[2017-02-18 20:00] VITALS: BP 125/67; PULSE 94; RESP 18; TEMP 96.3; O2SAT 92
[2017-02-18] MEDS: PRAVASTATIN SOD 80 MG TAB PO SCH (21:20)
[2017-02-19] VITALS: BP 131/64; PULSE 84; RESP 20; TEMP 98.4; O2SAT 94
[2017-02-19] MEDS: METOCLOPRAMIDE HCL 10 MG/2 ML VIAL IVS SCH ×4 (00:25→18:33)
[2017-02-19] MEDS: HEPARIN SODIUM - SQ 10,000 UNITS/ML VIAL SQ SCH ×3 (00:25→15:59)
[2017-02-19] MEDS: LEVOTHYROXINE SODIUM 88 MCG TAB PO SCH (06:20)
[2017-02-19] MEDS: MESALAMINE HD 800 MG DELAYED RELEASE TAB PO SCH ×4 (06:20→22:10)
[2017-02-19 08:00] VITALS: BP 107/59; PULSE 91; RESP 16; TEMP 96.1; O2SAT 95
[2017-02-19] MEDS: METOPROLOL TARTRATE 25 MG TAB PO SCH ×2 (08:30→20:51)
[2017-02-19] MEDS: PANTOPRAZOLE SODIUM 40 MG VIAL IVP SCH (08:31)
[2017-02-19] MEDS: NYSTATIN SUSP 500,000 U/5 ML CUP SWISH-SWAL SCH ×4 (08:31→20:51)
[2017-02-19] MEDS: ALVIMOPAN 12 MG CAPSULE PO SCH ×2 (08:31→20:50)
[2017-02-19] MEDS: SODIUM CHLORIDE 0.9% FLUSH 10 ML FLUSH IV FLUSH SCH ×2 (08:31→20:49)
[2017-02-19] MEDS: CIPROFLOXACIN 500 MG TAB PO SCH ×2 (10:22→20:51)
--- NOTE | 2017-02-19 10:24 | HHI.PR ---
Subjective Remarks No Nor V. Less pain. Has dysuria after cysto and ureteroscopy with Leukocyte esterase. Will start Cipro while awaiting culture. C/O thrush. Start Diflucan PO Objective Vital Signs Date Time Temp Pulse Resp B/P Pulse Ox O2 Delivery O2 Flow Rate FiO2 02/19/17 08:00 96.1 91 16 107/59 95 02/19/17 00:00 98.4 84 20 131/64 94 02/18/17 20:00 96.3 94 18 125/67 92 02/18/17 16:00 98.1 92 16 114/64 98 02/18/17 12:00 97.5 82 16 96 I/O 02/18/17 02/18/17 02/18/17 02/19/17 02/19/17 02/19/17 06:59 14:59 22:59 06:59 14:59 22:59 Intake Total 756 ml 120 ml 240 ml Output Total 1000 ml 1200 ml 300 ml 200 ml Balance -1000 ml -444 ml -180 ml 40 ml Intake Oral 750 ml 120 ml 240 ml IV Total 6 ml 0 ml Output Urine Total 450 ml 1200 ml Stool Total 550 ml 300 ml 200 ml # Voids 1 2 3 # Bowel Movements 3 Result Diagram: 02/15/1752702/15/17527 Objective Remarks VS-S Abd: Flat, soft, Ileostomy pink,stooling from rectum,wound clean. Wound clean. Assessment and Plan Assessment and Plan Stable POD#6 Ileostomy was done because of significant distal Ileal carcinoma and possible pending obstruction. Ready for D/C from surgical standpoint. I have D/W Dr Jeter several days ago. Appt. with me end of next week for staple removal Phoenix Barraza MD Feb 19, 2017 10:24
[2017-02-19] MEDS: FLUCONAZOLE 200 MG TAB PO SCH (10:37)
--- NOTE | 2017-02-19 11:11 | HHI.PR ---
Subjective Remarks Patient complains of dysuria this morning. Denies any chest pain, shortness of breath, nausea or vomiting. Patient denies any abdominal pain at this time. She asks again about what home health care includes. She will speak with case management in the morning Objective Vitals Vital Signs Date Time Temp Pulse Resp B/P Pulse Ox O2 Delivery O2 Flow Rate FiO2 02/19/17 08:00 96.1 91 16 107/59 95 02/19/17 00:00 98.4 84 20 131/64 94 02/18/17 20:00 96.3 94 18 125/67 92 02/18/17 16:00 98.1 92 16 114/64 98 02/18/17 12:00 97.5 82 16 96 I/O 02/18/17 02/18/17 02/18/17 02/19/17 02/19/17 02/19/17 06:59 14:59 22:59 06:59 14:59 22:59 Intake Total 756 ml 120 ml 240 ml Output Total 1000 ml 1200 ml 300 ml 200 ml Balance -1000 ml -444 ml -180 ml 40 ml Intake Oral 750 ml 120 ml 240 ml IV Total 6 ml 0 ml Output Urine Total 450 ml 1200 ml Stool Total 550 ml 300 ml 200 ml # Voids 1 2 3 # Bowel Movements 3 Result Diagram: 02/15/17 0528 02/15/17 0528 Imaging Last Impressions Abdomen X-Ray 02/13/17 0000 Signed Impressions: Service Date/Time: Monday, February 13, 2017 17:34 - CONCLUSION: Gaseous distention. Right nephroureteral stent in good position. Leif Landa MD Chest CT 02/11/17 0000 Signed Impressions: Service Date/Time: Saturday, February 11, 2017 11:21 - CONCLUSION: Right middle lobe infiltrate and questionable tiny nodules bilaterally, repeat noncontrasted CT is suggested in 6 months as a conservative follow up. Navjot Jonas MD Abdomen/Pelvis CT 02/10/17 0000 Signed Impressions: Service Date/Time: Friday, February 10, 2017 17:23 - CONCLUSION: 1. Stable severe wall thickening of the entire rectum with induration of the fat in the mesial rectum. A malignancy or inflammatory process could both have this appearance. 2. There is a new fluid in the right and transverse colon possibly related to interval bowel prep. 3. Stable wall thickening of the anterior urinary bladder suspicious for a neoplastic process. 4. Stable severe right hydronephrosis with caliber change at the ureteropelvic junction. As described previously there is questionable thickening of the ureter in this area which could be related to a malignant process. 5. Persistent free fluid in the abdomen and pelvis with stranding in the omentum. 6. There is a 4 mm pulmonary nodule identified in the right lower lobe. Phoenix Pruitt MD Renal Ultrasound 02/07/17 0000 Signed Impressions: Service Date/Time: Tuesday, February 07, 2017 18:00 - CONCLUSION: Dilated right renal pelvis. The UPJ soft tissue lesion and bladder abnormality noted on the CT examination is not clearly evaluated on ultrasound. This would be best assessed with cystoscopy and ureteroscopy. Rafita Schilling MD Abdomen/Pelvis/Transvag US 02/07/17 0000 Signed Impressions: Service Date/Time: Tuesday, February 07, 2017 18:09 - CONCLUSION: 1. Cyst left ovary. 2. Right ovary not seen. 3. Small amount of free fluid in the pelvis. Rafita Schilling MD Objective Remarks GENERAL: This is a well-nourished, well-developed patient, sitting up in a recliner CARDIOVASCULAR: Regular rate and regular rhythm without murmurs RESPIRATORY: Clear to auscultation. Breath sounds equal bilaterally. No wheezes. GASTROINTESTINAL: Abdomen soft, nondistended. [place] in place, incision healing well, No signs of infection ileostomy in place. MUSCULOSKELETAL: Extremities without edema. NEURO: [employer], answers questions. Moves all ext x4 Procedures Cystoscopy right ureteroscopy with right double-J stent insertion Flexible Sigmoidoscopy with biopsies [place] cut needle Biopsy Rectum Exploratory laparotomy Peritoneal biopsies Diverting loop Ileostomy A/P Problem List: (1) Diarrhea ICD Code: R19.7 Status: Acute (2) Bladder wall thickening ICD Code: N32.89 Status: Acute (3) Abdominal pain ICD Code: R10.9 Status: Acute (4) Supratherapeutic INR ICD Code: R79.1 Status: Acute (5) Hematuria ICD Code: R31.9 Status: Acute (6) Paroxysmal a-fib ICD Code: I48.0 Status: Acute (7) Hypertension ICD Code: I10 Status: Acute Assessment and Plan Abdominal pain, bilateral lower quadrants Chronic Diarrhea/fecal incontinence Wt loss Peritoneal carcinomatosis The patient was treated empirically with Flagyl 7 days prior to admission without improvement of her symptoms. C. difficile negative. - CT abd/pelvis showing prominence of the right renal pelvis and possible mild hydronephrosis with prominent soft tissue density at the UPJ, underlying neoplastic process should be excluded. Prominent anterior bladder wall thickening measuring 9 mm. Borderline prominent left ovary. -GI following. Status post colonoscopy. 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 The scope could not be passed. - Patient evaluated by colorectal surgery, she underwent exploratory laparotomy which revealed peritoneal carcinomatosis. Patient is status post diverting loop ileostomy. POD6 - Oncology follow-up appreciated; palliative care evaluated the patient, she desires to continue to remain full code. Per their documentation, patient has a son however she does not want him to make decisions on her behalf in case of an emergency. She is still undecided on her POA will be. Supratherapeutic INR,has resolved. - INR 12.3 on presentation. Status post vitamin K. Continue to hold Coumadin. On heparin for prophylaxis. Mild hydronephrosis with prominent soft tissue density at the UPJ Prominent bladder thickening -Appreciate urology following. Patient is status post Cystoscopy, right ureteroscopy with right double-J stent insertion -Patient has been voiding without Pepper, she will follow-up with urology in 6 weeks. Borderline prominence left ovary - Complaints of left lower quadrant pain - Pelvic ultrasound revealed a left ovarian cyst. Coronary artery disease Afib Previous [place] in 2011 with attempted but unsuccessful stent placement Hypertension Dyslipidemia - on home metoprolol 25 mg by mouth twice a day -On statin therapy - Clonidine prn with parameters - Monitor - Plan to resume Coumadin once cleared by colorectal surgery and urology. Pulmonary nodule: Discovered on abdominal CT. She does have a history of tobacco abuse. Chest CT obtained. Recommends follow-up noncontrast CT in 6 months. Hypothyroidism - Resumed home levothyroxine. - TSH level ok DVT prophylaxis - SCDs. Heparin. Discharge Planning Patient can be discharged from a surgical and urological standpoint. Check with them tomorrow if patient can be resumed on Coumadin. Apparently, patient's insurance will not cover SNF placement. She will require home health care for ileostomy care. Patient is very concerned about going home. Per case management's note, the earlier a home health care nurse can come would be on Monday02/20/17. Patient to remain in the hospital until then. We will discuss with case management on Monday to make sure all supplies are available prior to discharge Problem Qualifiers (1) Diarrhea: Qualified Code: R19.7 - Diarrhea, unspecified type (2) Abdominal pain: Qualified Code: R10.84 - Generalized abdominal pain (3) Hematuria: Qualified Code: R31.9 - Hematuria, unspecified type Beverly Blount MD Feb 19, 2017 11:11
[2017-02-19 12:00] VITALS: BP 137/80; PULSE 91; RESP 18; TEMP 96.4; O2SAT 96
[2017-02-19 16:00] VITALS: BP 137/80; PULSE 91; RESP 18; TEMP 96.7; O2SAT 96
[2017-02-19 20:00] VITALS: BP 136/75; PULSE 96; RESP 18; TEMP 96; O2SAT 96
[2017-02-19] MEDS: PRAVASTATIN SOD 80 MG TAB PO SCH (20:50)
[2017-02-20] VITALS: BP 134/72; PULSE 86; RESP 18; TEMP 96.8; O2SAT 93
[2017-02-20] MEDS: LEVOTHYROXINE SODIUM 88 MCG TAB PO SCH (05:11)
[2017-02-20] MEDS: METOCLOPRAMIDE HCL 10 MG/2 ML VIAL IVS SCH ×3 (05:11→13:49)
[2017-02-20 08:00] VITALS: BP 117/66; PULSE 88; RESP 17; TEMP 96.3; O2SAT 95
[2017-02-20] MEDS: PANTOPRAZOLE SODIUM 40 MG VIAL IVP SCH (08:09)
[2017-02-20] MEDS: METOPROLOL TARTRATE 25 MG TAB PO SCH ×2 (08:09→13:48)
[2017-02-20] MEDS: ALVIMOPAN 12 MG CAPSULE PO SCH (08:10)
[2017-02-20] MEDS: NYSTATIN SUSP 500,000 U/5 ML CUP SWISH-SWAL SCH ×2 (08:10→13:49)
[2017-02-20] MEDS: CIPROFLOXACIN 500 MG TAB PO SCH (08:10)
[2017-02-20] MEDS: FLUCONAZOLE 200 MG TAB PO SCH (08:10)
[2017-02-20] MEDS: SODIUM CHLORIDE 0.9% FLUSH 10 ML FLUSH IV FLUSH SCH (08:10)
[2017-02-20] MEDS: HEPARIN SODIUM - SQ 10,000 UNITS/ML VIAL SQ SCH ×3 (08:10→16:37)
--- NOTE | 2017-02-20 10:19 | HHI.PR ---
Subjective Remarks No Nor V. Less pain. Dysuria improved. Await C&S Objective Vital Signs Date Time Temp Pulse Resp B/P Pulse Ox O2 Delivery O2 Flow Rate FiO2 02/20/17 08:00 96.3 88 17 117/66 95 02/20/17 00:00 96.8 86 18 134/72 93 02/19/17 20:00 96.0 96 18 136/75 96 02/19/17 16:00 96.7 91 18 137/80 96 02/19/17 12:00 96.4 91 18 137/80 96 I/O 02/19/17 02/19/17 02/19/17 02/20/17 02/20/17 02/20/17 07:00 15:00 23:00 07:00 15:00 23:00 Intake Total 240 ml Output Total 200 ml 45 ml 150 ml Balance 40 ml -45 ml -150 ml Intake Oral 240 ml Stool Total 200 ml 45 ml 150 ml # Voids 3 Objective Remarks VS-S Abd: Flat, soft, Ileostomy pink, wound clean. Assessment and Plan Assessment and Plan Stable POD#7 Ileostomy was done because of significant distal Ileal carcinoma and possible pending obstruction. Ready for D/C from surgical standpoint. I have D/W Dr Jeter several days ago. Appt. with me end of next week for staple removal or can be removed by [facility] nurse at end of week. Asacol discontinued. Pt was started on Asacol by GI prior to diagnosis. Once she is recovered from surgery, I will sign off as this is not a Colonic lesion. Phoenix Barraza MD Feb 20, 2017 10:19
--- NOTE | 2017-02-20 11:09 | PD.ONC.PN ---
Subjective Subjective Remarks Afebrile overnight. Patient resting in room. She is considering going back to for treatment. Eating small amounts, slowly. Pain controlled at present. Objective Data Date Time Temp Pulse Resp B/P Pulse Ox O2 Delivery O2 Flow Rate FiO2 02/20/17 08:00 96.3 88 17 117/66 95 02/20/17 00:00 96.8 86 18 134/72 93 02/19/17 20:00 96.0 96 18 136/75 96 02/19/17 16:00 96.7 91 18 137/80 96 02/19/17 12:00 96.4 91 18 137/80 96 02/20/17 02/20/17 02/20/17 07:00 15:00 23:00 Output Total 150 ml Balance -150 ml Culture Results Microbiology Date/Time Procedure Status Source Growth 02/18/17 07:15 Urine Culture - Preliminary Resulted Urine Clean Catch Proteus Mirabilis Gram Negative Rakesh Administered Medications Medications (Trade) Dose Ordered Sig/Trina Route PRN Reason Start Time Stop Time Status Last Admin Dose Admin Levothyroxine Sodium (Synthroid) 88 mcg DAILY@06 PO 02/08/17 06:00 02/20/17 05:11 Metoprolol Tartrate (Lopressor) 25 mg BID PO 02/07/17 21:00 02/19/17 20:51 Pravastatin Sodium (Pravachol) 80 mg HS PO 02/07/17 21:00 02/19/17 20:50 Cholestyramine Resin (Questran 4 Gm Pkt) 4 gm Q12HR PO 02/08/17 21:00 Hold 02/09/17 08:28 Nystatin (Mycostatin Liq) 5 ml QID SWISH-SWAL 02/11/17 10:28 02/20/17 08:10 Sodium Chloride (NS Flush) 2 ml UNSCH PRN IV FLUSH FLUSH AFTER USING IV ACCESS 02/13/17 17:00 02/19/17 18:35 Sodium Chloride (NS Flush) 2 ml BID IV FLUSH 02/13/17 21:00 02/20/17 08:10 Acetaminophen/ Hydrocodone Bitart ([place] 5-325 Mg) 1 tab Q4H PRN PO PAIN SCALE 1 TO 4 02/13/17 17:00 02/19/17 00:25 Acetaminophen/ Hydrocodone Bitart ([place] 5-325 Mg) 2 tab Q4H PRN PO PAIN SCALE 5 TO 10 02/13/17 17:00 02/17/17 09:06 Alvimopan (Entereg) 12 mg BID PO 02/14/17 09:00 02/20/17 21:01 02/20/17 08:10 Pantoprazole Sodium (Protonix Inj) 40 mg DAILY IVP 02/14/17 09:00 02/20/17 08:09 Metoclopramide HCl (Reglan Inj) 10 mg Q6HR IVS 02/13/17 18:00 02/20/17 05:11 Ondansetron HCl (Zofran Inj) 4 mg Q6H PRN IV NAUSEA 02/13/17 17:00 02/16/17 21:08 Heparin Sodium (Porcine) (Heparin Inj) 5,000 units Q8H SQ 02/14/17 16:00 02/20/17 08:10 Ciprofloxacin (Cipro) 500 mg Q12HR PO 02/19/17 10:15 02/20/17 08:10 Fluconazole (Diflucan) 200 mg DAILY PO 02/19/17 10:30 02/20/17 08:10 Objective Remarks GENERAL: Middle aged female sitting up in chair in nad SKIN: Warm and dry. HEAD: Normocephalic. EYES: No injection or drainage. NECK: Supple, trachea midline. CARDIOVASCULAR: Regular rate and rhythm RESPIRATORY: Breath sounds equal bilaterally. No accessory muscle use. GASTROINTESTINAL: Abdomen firm, distended, +ileostomy pouch with liquid stool. EXTREMITIES: No cyanosis NEUROLOGICAL: awake and alert, normal speech. moving all extremities. Assessment/Plan Problem List: (1) Peritoneal carcinomatosis Status: Acute Plan: --pathology consistent with primary peritoneal carcinomatosis. considering returning home to for treatment. --started having abdominal pain and diarrhea a month ago. She had lost about 11 pounds. --colonoscopy in March 2016 was benign. had an attempt at colonoscopy again during this hospital stay but was noted to have rectal sigmoid stenosis and colonoscopy was incomplete. --CT abdomen and pelvis which showed thickening of the entire rectum. + thickening of bladder wall and severe right hydronephrosis at the UPJ. --exploratory laparotomy 02/13 showed peritoneal carcinomatosis causing frozen pelvis and rectal obstruction. ++diverting ileostomy. --CA19-9 is normal. --CA-125 slightly elevated at 114. --Ultrasound of the pelvis showed left ovarian cyst. The right ovary is not visible. --CT chest showed nonspecific tiny pulmonary nodules bilaterally. The biopsy of the mesenteric nodule is pending at this time. could be primary peritoneal carcinomatosis versus metastatic carcinomatosis. --just had a mammogram done around June which was reportedly unremarkable. also had a Pap smear done around that time which reportedly also was unremarkable. -- will consult Dr. Jeter to see if this could be a primary [employer] malignancy. --Nonspecific pulmonary nodule noted on CT scan. She had tiny bilateral nodules. Metastatic disease cannot be totally ruled out. will need to be monitored. (2) Bladder wall thickening Status: Acute Plan: --Thickening of the bladder wall and right hydronephrosis on CT scan. She had a cystoscopy which did not show any bladder tumor. There was also no tumor noted in the UPJ. She is status post stent placement. Assessment 66y/o female with peritoneal carcinomatosis. h/o Coronary artery disease, status post myocardial infarction in 2011. Hypertension. Hyperlipidemia. Hypothyroidism. Colonoscopy in March 2016. Varicose veins surgery. Hemorrhoidectomy. Sinus surgery. Plan 1. continue supportive care 2. patient to either follow up in clinic for treatment or return to for treatment. She is still considering her options. Attending Statement The exam, history, and the medical decision-making described in the above note were completed with the assistance of the mid-level provider. I reviewed and agree with the findings presented. I attest that I had a [id number] encounter with the patient on the same day, and personally performed and documented my assessment and findings in the medical record. Feeling better. Tolerating po. Extensive discuss with pt regarding her treatment option. We discussed pros and cons of chemotherapy. Her disease is likely not curable. Pt has no good social support here locally. She is thinking about going back to to receive treatment. She dose not want port placement at this time. She can be d/c from oncology standpoint. F/u with [facility] onc outpt. Danna Martin Feb 20, 2017 11:08 Esteban Leigh MD Feb 20, 2017 15:19
[2017-02-20] MEDS ORDERED: DIFL200T PO (11:56)
[2017-02-20] MEDS ORDERED: CIPR-9 PO (11:56)
[2017-02-20] MEDS ORDERED: [UNRECOGNIZED DRUG - CODE] PO (11:56)
[2017-02-20] MEDS ORDERED: PERI8.6T PO (11:57)
[2017-02-20] MEDS ORDERED: HYDR-3580 PO (11:57)
[2017-02-20 12:00] VITALS: BP 129/81; PULSE 95; RESP 16; TEMP 95.4; O2SAT 96
--- NOTE | 2017-02-20 12:01 | HHI.DS ---
Discharge Summary Admission Date Feb 07, 2017 at 15:40 Discharge Date: Feb 20, 2017 Admitting Diagnosis supratherapeutic INR, abdominal pain (1) Diarrhea ICD Code: R19.7 Diagnosis: Principal (2) Bladder wall thickening ICD Code: N32.89 Diagnosis: Principal (3) Abdominal pain ICD Code: R10.9 Diagnosis: Principal (4) Supratherapeutic INR ICD Code: R79.1 Diagnosis: Principal (5) Hematuria ICD Code: R31.9 Diagnosis: Principal (6) Paroxysmal a-fib ICD Code: I48.0 Diagnosis: Principal (7) Hypertension ICD Code: I10 Diagnosis: Principal Procedures Cystoscopy right ureteroscopy with right double-J stent insertion Flexible Sigmoidoscopy with biopsies Gilmer cut needle Biopsy Rectum Exploratory laparotomy Peritoneal biopsies Diverting loop Ileostomy Brief History - From Admission This is a 66-year-old female with a past medical history significant for coronary artery disease status post previous MA in 2011 with attempted but unsuccessful stent placement currently on Coumadin, hypertension, dyslipidemia and hypothyroidism who presents to [facility] ED after being told to come in by her PCP for supratherapeutic INR of 7. Patient also reports 3 week history of abdominal pain and ongoing diarrhea consisting of 10-15+ pudding consistency stools daily. Patient describes her abdominal pain as sharp and located in both lower quadrants and worsened with lying supine so she has taken to sleeping in the recliner. She denies any dark/bloody or mucoid stools. Patient states she was seen by GI specialist 7 days ago and started on Flagyl empirically for possible C. difficile infection and/or Giardia. She denies any stool testing or imaging studies done. Patient denies any improvement while on Flagyl. Her last colonoscopy was in March of last year and she had a small polypectomy. Patient reports that when she is up moving around she has frequent episodes of diarrhea every 15 minutes and has begun wearing a brief. She completed a course of nitrofurantoin yesterday for urinary tract infection. She denies any urinary difficulties, dysuria or hematuria presently. She denies any bleeding episodes. Patient reports poor appetite and states that she 's lost 8 pounds over the past week. She denies any fever, chills, dizziness, headache, shortness of breath or chest pain. In the ED, CT of abdomen and pelvis was obtained showing prominence of the right renal pelvis and possible mild hydronephrosis with prominent soft tissue density at the UPJ with possible underlying neoplastic process. Prominent anterior bladder wall thickening of 9 mm and borderline prominence of the left ovary. She has a supratherapeutic INR of 12.3. Significant Findings Laboratory Tests Test 02/18/17 07:15 Urine Turbidity HAZY (CLEAR) Urine Protein 30 mg/dL (NEG-TRACE) Urine Ketones 40 mg/dL (NEG) Urine Occult Blood MOD (NEG) Urine Leukocyte Esterase LARGE (NEG) Urine WBC 116 /hpf (0-5) Urine Calcium Oxalate Crystals RARE /hpf (NONE) Urine Bacteria OCC /hpf (NONE) Urine Mucus MANY /lpf (OCC) Imaging Last Impressions Abdomen X-Ray 02/13/17 0000 Signed Impressions: Service Date/Time: Monday, February 13, 2017 17:34 - CONCLUSION: Gaseous distention. Right nephroureteral stent in good position. Leif Landa MD Chest CT 02/11/17 0000 Signed Impressions: Service Date/Time: Saturday, February 11, 2017 11:21 - CONCLUSION: Right middle lobe infiltrate and questionable tiny nodules bilaterally, repeat noncontrasted CT is suggested in 6 months as a conservative follow up. Navjot Jonas MD Abdomen/Pelvis CT 02/10/17 0000 Signed Impressions: Service Date/Time: Friday, February 10, 2017 17:23 - CONCLUSION: 1. Stable severe wall thickening of the entire rectum with induration of the fat in the mesial rectum. A malignancy or inflammatory process could both have this appearance. 2. There is a new fluid in the right and transverse colon possibly related to interval bowel prep. 3. Stable wall thickening of the anterior urinary bladder suspicious for a neoplastic process. 4. Stable severe right hydronephrosis with caliber change at the ureteropelvic junction. As described previously there is questionable thickening of the ureter in this area which could be related to a malignant process. 5. Persistent free fluid in the abdomen and pelvis with stranding in the omentum. 6. There is a 4 mm pulmonary nodule identified in the right lower lobe. Phoenix Pruitt MD Renal Ultrasound 02/07/17 0000 Signed Impressions: Service Date/Time: Tuesday, February 07, 2017 18:00 - CONCLUSION: Dilated right renal pelvis. The UPJ soft tissue lesion and bladder abnormality noted on the CT examination is not clearly evaluated on ultrasound. This would be best assessed with cystoscopy and ureteroscopy. Rafita Schilling MD Abdomen/Pelvis/Transvag US 02/07/17 0000 Signed Impressions: Service Date/Time: Tuesday, February 07, 2017 18:09 - CONCLUSION: 1. Cyst left ovary. 2. Right ovary not seen. 3. Small amount of free fluid in the pelvis. Rafita Schilling MD PE at Discharge GENERAL: This is a well-nourished, well-developed patient, sitting up in a recliner CARDIOVASCULAR: Regular rate and regular rhythm without murmurs RESPIRATORY: Clear to auscultation. Breath sounds equal bilaterally. No wheezes. GASTROINTESTINAL: Abdomen soft, nondistended. Debora in place, incision healing well, No signs of infection ileostomy in place. MUSCULOSKELETAL: Extremities without edema. NEURO: [place], answers questions. Moves all ext x4 Pt update on day of discharge Patient evaluated earlier this morning. She denied any pain. Denies any nausea or vomiting. He denied any shortness of breath. She is a little bit nervous about going home with home health and understands that she needs to but would like to speak with case management prior to discharge to make sure everything is all set up. She also requests some assistance with transportation to home as her vehicle stayed at a friend's house who is gone on vacation. Hospital Course Peritoneal carcinomatosis The patient was treated empirically with Flagyl 7 days prior to admission without improvement of her symptoms. C. difficile negative. - CT abd/pelvis showing prominence of the right renal pelvis and possible mild hydronephrosis with prominent soft tissue density at the UPJ, underlying neoplastic process should be excluded. Prominent anterior bladder wall thickening measuring 9 mm. Borderline prominent left ovary. -GI evaluated the patient. Status post colonoscopy. 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 The scope could not be passed. - Patient evaluated by colorectal surgery, she underwent exploratory laparotomy which revealed peritoneal carcinomatosis. Patient is status post diverting loop ileostomy. POD7 - Oncology follow-up appreciated; palliative care evaluated the patient, she desires to continue to remain full code. Per their documentation, patient has a son however she does not want him to make decisions on her behalf in case of an emergency. She is still undecided on her POA will be. Supratherapeutic INR,has resolved. - INR 12.3 on presentation. Status post vitamin K. Patient has been cleared by surgery to resume Coumadin. Monitor H& H as an outpatient Mild hydronephrosis with prominent soft tissue density at the UPJ Prominent bladder thickening -Appreciate urology following. Patient is status post Cystoscopy, right ureteroscopy with right double-J stent insertion -Patient has been voiding without Pepper, she will follow-up with urology in 6 weeks. Afib- on oral meds including Coumadin Pulmonary nodule: Discovered on abdominal CT. She does have a history of tobacco abuse. Chest CT obtained. Recommends follow-up noncontrast CT in 6 months as an outpatient. Pt Condition on Discharge: Stable Discharge Disposition: Disch w/ Home Health Serv Discharge Time: > 30 minutes Discharge Instructions DIET: Follow Instructions for: Heart Healthy Diet Activities you can perform: See Additionl Instruction Other Activity Instructions: no lifting heavy objects until cleared by sx Follow up Referrals: Appointment for Follow Up - 02/24/[address] Barraza PCP Follow-up - 1 Week Urology - 6 Weeks New Medications: Hydrocodone-Acetaminophen (Hydrocodone-Acetaminophen) 7.5-325 mg Tab 1 TAB PO Q6H PRN PAIN #30 Ref 0 TAB Sennosides-Docusate Sodium (Diana-Colace) 8.6-50 Mg Tab 1 TAB PO BID PRN Constipation #60 Ref 0 TAB Alvimopan (Entereg) 12 Mg Cap 12 MG PO BID Days 30 CAP Ciprofloxacin (Cipro) 500 Mg Tab 500 MG PO Q12HR to be started today in pm for second dose #11 TAB Fluconazole (Diflucan) 200 Mg Tab 200 MG PO DAILY Days 5 TAB Continued Medications: Levothyroxine (Levothyroxine) 88 Mcg Tab 88 MCG PO DAILY Thyroid #30 Ref 0 TAB Metoprolol Tartrate (Metoprolol Tartrate) 25 Mg Tab 25 MG PO BID #60 Ref 0 TAB Simvastatin (Simvastatin) 40 Mg Tab 40 MG PO HS Cholesterol Management #30 Ref 0 TAB Warfarin (Warfarin) 7.5 Mg Tab 7.5 MG PO MOTH Take 1 tablet (7.5mg) on Monday and Blood Clot Prevention #30 Ref 0 TAB Warfarin (Warfarin) 5 Mg Tab 5 MG PO SUTUWEFRSA Take 1 tablet (5mg) on Monday,Monday,Monday,Monday and Monday Blood Clot Prevention #30 Ref 0 TAB Beverly Blount MD Feb 20, 2017 12:01
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
--- NOTE | 2017-02-20 13:58 | PD.WCN.NOT ---
Wound Consult Description: Consult for NEW OSTOMY TEACHING for RLQ ileostomy Communicated with: Patient Micki Jarod Durham,RN Recommendation: Reinforce patients knowledge of ostomy care, changing appliance in 3-7 days, using water only for peristomal cleansing, and emptying pouch when 1/3 - 1/2 full. Additional Information: Patient seen today on for ostomy appliance change. Patient stated feeling overwhelmed upon entering room and had many questions about the stoma and appliances. Patient was encouraged to try and relax and we would go over all her questions at her pace. The patient states that "Case Management came in and said that the nurses were teaching me how to take care of my stoma", she shook her head and said "that did not happen over the weekend, no one taught me anything at all". She said she "woke up covered in a mess and that the bag had leaked all over the bed and sheets" which seemed to have made her very upset. It was explained to her that we would start over again by emptying the pouch, removing the pouch, and cleaning the peristomal skin. The we would inspect the stoma, measure the stoma, and apply a new barrier to her skin. Then we would attach a new pouch. The patient demonstrated all of these things with one step directions, minimal help, and moderate reinforcement. 4 appliances were ordered and picked up from [facility] (1&3/4 inch). One of these was used in demonstration. Patient has 3 appliances to go home with. [facility] was contacted for starter kit to be sent to her home and patient will have home health care RN visit for further teaching and reinforcement. Patient has intact theodore noted to abdomen that will be taken out in the next week either by [facility] or when patient follows up in the office. Patient states being more comfortable with new appliance in her correct size, and after changing appliance feels more comfortable emptying and "burping" pouch to let the air out. Patient states that she is ready to go home although still a little nervous about changing the appliance herself and not being able to see everything. It was explained to her that she would benefit from standing in front of the mirror as we did today, and that she would not be alone, she will have [facility] available with [facility]'s phone number in the kit that was given to her here with extra appliances to practice with along with educational materials. Ostomy Type: Ileostomy Surgeon: Phoenix Barraza MD Date of Surgery: Feb 13, 2017 Complete: Starter kit, Education materials, Other (4 appliances ordered in patient size of 1&3/4 with 3 left to take home with her at discharge) Educated patient on: Patient was educated once again on how to release air from her pouch and how to open, empty, and close her pouch. [facility] and [facility] kit is being sent to her home via 2 day air in her measured size. Patient was educated on the stoma and how it will be changing in size over the next 6-7 weeks. She was also educated on the effluent coming from the stoma and the need to change the appliance every 3-7 days and PRN. How to cleanse the peristomal skin with water only, pat dry or allow to air dry completely before applying new barrier. Patient was able to empty and remove pouch/barrier, cleanse the peristoma, and apply new barrier and pouch. Dolores Waddell [facility] Feb 20, 2017 13:58
--- NOTE | 2017-02-20 14:21 | HHI.HCPN ---
Reason for visit a. To assist with evaluation and management of symptoms including: pain, anxiety, decreased appetite b. To assist medical decision maker(s) with: better understanding of current medical conditions; weighing benefits/burdens of medical treatment options; making medical treatment decisions. . Subjective/Interval History Ms. Montanez is a 66 year old female with a past medical history that includes coronary artery disease s/p previous [facility] in 2011 with an unsuccessful attempt stent placement on anticoagulation therapy, hypertension, dyslipidemia and hypothyroidism. She presented to [facility] ED on 02/07/2017 after her primary care physician advised to go to the hospital for supratherapeutic INR of 7. A CT scan showed increasing distention of the colon and an abdominal x- ray shows moderate proximal colonic distention. Patient subsequently underwent an exploratory laparotomy with sigmoidoscopy and cystoscopy with placement of right ureteral stent on 02/13/2017. Approximately 2 L of ascites was removed. 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 Patient had a diverting ileostomy. Afebrile. Urine culture 02/18/2017 growing Proteus Mirabilis; started on Cipro 500mg PO q12 hours. Complaining of thrush, started on Diflucan PO daily, remains on Nystatin swish and swallow QID for treatment of thrush. Appetite improving slowly, eating 60% to 70% per documentation. Patient denies nausea, denies vomiting. Patient reporting pain is currently well managed with Durham 5-325mg 1-2 tablets PO q4 hours PRN; patient has not required any PRN pain medication in the past 24 hours. Patient has been cleared by surgery and urology. Patient's insurance will not cover SNF placement; patient verbalizing ongoing concern about going home alone. Will need Home Health visits for ileostomy care. Health Care Surrogate form and Living Will completed 02/20/17; Copies placed into paper chart and faxed to HIM to be scanned into the patient's paper chart. . Advance Directives Living Will: Copy in medical record Health Care Surrogate: Copy in medical record Durable Power of Cloth Shrinking Supervisor: Never completed Advance Directive Specifics Date completed: 02/20/17 . Health Care Surrogate(s): Cindy Allen, friend, is the designated HCS. Dr. Jamison Allen is designated as the alternate [facility] decision maker. . Documented care wishes: Living will was completed 02/20/17 and can be viewed in the patient's EMR. . Objective Vital Signs Date Time Temp Pulse Resp B/P Pulse Ox O2 Delivery O2 Flow Rate FiO2 02/20/17 12:00 95.4 95 16 129/81 96 02/20/17 08:00 96.3 88 17 117/66 95 02/20/17 00:00 96.8 86 18 134/72 93 02/19/17 20:00 96.0 96 18 136/75 96 02/19/17 16:00 96.7 91 18 137/80 96 Intake & Output 02/20/17 02/20/17 07:00 19:00 Output Total 195 ml Balance -195 ml Stool Total 195 ml Physical Exam CONSTITUTIONAL/GENERAL: This is an adequately nourished patient sitting upright in bedside chair in no acute distress TUBES/LINES/DRAINS: PIV 1, ileostomy SKIN: No jaundice, rashes, or lesions. Ileostomy pink. Abdomen slightly distended, theodore intact, Skin temperature appropriate. Not diaphoretic. HEAD: Atraumatic. Normocephalic. EYES: Pupils equal and round and reactive. No scleral icterus. No injection or drainage. Fundi not examined. ENT: Hearing grossly normal. Nose without bleeding or purulent drainage. NECK: Trachea midline. Supple, nontender. CARDIOVASCULAR: Regular rate and rhythm without murmurs, gallops, or rubs. No JVD. Peripheral pulses symmetric. RESPIRATORY/CHEST: Symmetric, unlabored respirations. Breath sounds equal bilaterally. No wheezes, rales, or rhonchi. GASTROINTESTINAL: Abdomen tender ; ileostomy pink. Bowel sounds present. GENITOURINARY: Without palpable bladder distension. MUSCULOSKELETAL: Extremities without clubbing, cyanosis, or edema. No obvious deformities LYMPHATICS: No palpable cervical or supraclavicular adenopathy. NEUROLOGICAL: Awake and alert. Motor and sensory grossly within normal limits. Follows commands. Cognitively sharp. Moves all extremities. PSYCHIATRIC: No obvious anxiety/depression. no apparent hallucinations or other psychotic thought process. . Diagnostic Tests Laboratory Laboratory Tests Test 02/18/17 07:15 Urine Color YELLOW (YELLW/STRAW) Urine Turbidity HAZY (CLEAR) Urine pH 5.5 (5.0-8.5) Urine Specific [place] 1.022 (1.002-1.035) Urine Protein 30 mg/dL (NEG-TRACE) Urine Glucose (UA) NEG mg/dL (NEG) Urine Ketones 40 mg/dL (NEG) Urine Occult Blood MOD (NEG) Urine Nitrite NEG (NEG) Urine Bilirubin NEG (NEG) Urine Urobilinogen LESS THAN 2.0 MG/DL (LESS THAN 2.0) Urine Leukocyte Esterase LARGE (NEG) Urine RBC /hpf (0-3) Urine WBC 116 /hpf (0-5) Urine Squamous Epithelial 8 /hpf (0-5) Cells Urine Calcium Oxalate Crystals RARE /hpf (NONE) Urine Bacteria OCC /hpf (NONE) Urine Hyaline Casts 5 /lpf (RARE) Urine Mucus MANY /lpf (OCC) Microscopic Urinalysis Comment CULTURE INDICATED Microbiology Microbiology Date/Time Procedure Status Source Growth 02/18/17 07:15 Urine Culture - Preliminary Resulted Urine Clean Catch Proteus Mirabilis Gram Negative Rakesh Procedures Vital Signs Date Time Temp Pulse Resp B/P Pulse Ox O2 Delivery O2 Flow Rate FiO2 02/20/17 08:00 96.3 88 17 117/66 95 02/20/17 00:00 96.8 86 18 134/72 93 02/19/17 20:00 96.0 96 18 136/75 96 02/19/17 16:00 96.7 91 18 137/80 96 . Assessment and Plan Disease Oriented Problem List: (1) CAD (coronary artery disease) (2) Hyperlipidemia (3) Hematuria (4) Diarrhea (5) Hypertension (6) Bladder wall thickening (7) Supratherapeutic INR (8) Peritoneal carcinomatosis (9) Obstruction of rectum Symptom Scale: (1) Decrease in appetite (2) Pain (3) Anxiety Pertinent Non-Medical Issues Psychosocial: Patient is originally from [facility]. She was to a man who she described as "terrible". They had on son together. The patient states she dropped her son off at school and ran away after she saved enough money for a bus ticket. Her son lives in [place] (patient did not want to share his name), but they are not close and speak only once a year when his is not present. 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 She states she has made a few friends and joined the indonesian club locally. Spiritual: Non-episcopalian Legal: Per [place] statutes, in the absence of written advanced directives healthcare proxy decision making would first fall to her and then her adult son. Patient has a son who lives in [place] (she was unwilling to provide his name) but states they are not close and speak only one time each year. It is unclear if the patient remains legally . We discussed the importance of designating a health care surrogate. Patient does not want her son to act in the role of healthcare proxy decision maker she does not know who she would designate as HCS at this time. Documents were left at patient's bedside to review. Ethical issues impacting care: No known ethical issues impacting care . Important Contacts Cindy Allen, friend: [phone] [place]- [phone] )- [facility] . Prognosis Patient is a 66 yo female patient with newly diagnosed peritoneal carcinomatosis s/p exploratory laparotomy with sigmoidoscopy and cystoscopy with placement of right ureteral stent on 02/13/2017. Patient is candidate for palliative chemotherapy per oncology, trying to decide whether she should begin treatment locally vs. returning to [place] vs. returning to [place]. Patient currently lives alone, is relatively new to the area and does not have a large support network in [place]. She has already declined with weight loss, poor appetite and increased weakness; ongoing acute decline would be expected without palliative intervention. Although oncology has indicated the patient may respond to recommended treatment, she remains high risk for ongoing decline , setbacks and complications. . Code Status: Full Code Plan * FULL CODE * Decision-making: Per [place] statutes, in the absence of written advanced directives healthcare proxy decision making would first fall to her and then her adult son. Patient has a son who lives in [place] (she was unwilling to provide his name) but states they are not close and speak only one time each year. It is unclear if the patient remains legally . We discussed the importance of designating a health care surrogate. Patient does not want her son to act in the role of healthcare proxy decision maker she does not know who she would designate as HCS at this time. Documents were left at patient's bedside to review. * Goals: Goals are aggressive at this time. Patient plans to proceed with recommended chemotherapy; trying to decide if she wants to start treatment locally vs. going back to [place] vs. returning to [place]. * Symptom management-pain: Patient reporting pain is currently well managed with Durham 5-325mg 1-2 tablets PO q4 hours PRN; patient has not required any PRN pain medication in the past 24 hours. Encouraged patient to use PRN medications as directed, discussing the importance utilizing medications before pain becomes too intense. * Symptom managementappetite: Appetite improving slowly, eating 60% to 70% per documentation. Patient denies nausea, denies vomiting. Complaining of thrush, started on Diflucan PO daily, remains on Nystatin swish and swallow QID for treatment of thrush. Encouraged patient to eat small frequent meals throughout the day. * Palliative care contact information was provided to the patient * Palliative care will continue to follow this patient throughout her hospitalization to establish trust, assist with symptom management and clarification of medical treatment goals. . Steph Mcbride Feb 20, 2017 14:21
== END 2017-02-20 17:25 | disposition home health service (06) | DRG 330 ==
LOC: NEPC 11:36 → NEDA 15:40 → HOCA 21:18 → N03B 02-13 15:54 → HCIS 02-13 17:29 → HPAC 02-14 05:20 → N07A 02-14 15:19
PROVIDERS: ADMIT Family Medicine; ATTEND Hospitalist
PROC: 0DBN8ZX Excision of Sigmoid Colon, Via Natural or Artificial Opening Endoscopic, Diagnostic (ICD-10-PCS; 2017-02-10)
PROC: 0W9G3ZX Drainage of Peritoneal Cavity, Percutaneous Approach, Diagnostic (ICD-10-PCS; 2017-02-13)
PROC: 0T768DZ Dilation of Right Ureter with Intraluminal Device, Via Natural or Artificial Opening Endoscopic (ICD-10-PCS; 2017-02-13)
PROC: 0D1B0Z4 Bypass Ileum to Cutaneous, Open Approach (ICD-10-PCS; principal; 2017-02-13 15:06)
PROC: 0DBV0ZX Excision of Mesentery, Open Approach, Diagnostic (ICD-10-PCS; 2017-02-13 15:06)
PROC: 0DBP8ZX Excision of Rectum, Via Natural or Artificial Opening Endoscopic, Diagnostic (ICD-10-PCS; 2017-02-13 15:06)
DX: C78.6 Secondary malignant neoplasm of retroperitoneum and peritoneum (principal); N13.30 Unspecified hydronephrosis; B37.0 Candidal stomatitis; K56.69 Other intestinal obstruction; C78.4 Secondary malignant neoplasm of small intestine; R18.8 Other ascites; N39.0 Urinary tract infection, site not specified; C80.1 Malignant (primary) neoplasm, unspecified; I48.0 Paroxysmal atrial fibrillation; R15.9 Full incontinence of feces; E03.9 Hypothyroidism, unspecified; R79.1 Abnormal coagulation profile; I25.2 Old myocardial infarction; I10 Essential (primary) hypertension; E78.5 Hyperlipidemia, unspecified; I25.10 Atherosclerotic heart disease of native coronary artery without angina pectoris; T37.3X5A Adverse effect of other antiprotozoal drugs, initial encounter; B96.4 Proteus (mirabilis) (morganii) as the cause of diseases classified elsewhere; N32.89 Other specified disorders of bladder; K62.4 Stenosis of anus and rectum; R91.8 Other nonspecific abnormal finding of lung field; N94.89 Other specified conditions associated with female genital organs and menstrual cycle; R19.7 Diarrhea, unspecified; R31.9 Hematuria, unspecified; N83.202 Unspecified ovarian cyst, left side; Z87.891 Personal history of nicotine dependence; Z79.01 Long term (current) use of anticoagulants; Z95.5 Presence of coronary angioplasty implant and graft; Z88.2 Allergy status to sulfonamides; Z88.8 Allergy status to other drugs, medicaments and biological substances
CPT/HCPCS: 71250; 74000; 74177; 76775; 76830; 76856; 80048; 80053; 80074; 80076; 81001; 82103; 82272; 82378; 82390; 82525; 82728; 83520; 83540; 83550; 83735; 84100; 84155; 84443; 84702; 85025; 85027; 85610; 85652; 85730; 86038; 86039; 86140; 86255; 86300; 86301; 86304; 86317; 86708; 86850; 86900; 86901; 87077; 87086; 87186; 87205; 87328; 87329; 87425; 87493; 88112; 88305; 88341; 88342; 93005; 93975; 94150; 96372; C1769; C9113; J0131; J0690; J1100; J1200; J1644; J1650; J1940; J2250; J2270; J2405; J2765; J3010; J3430; J3480; J7040; Q9963; Q9967